=== PATIENT | female | born 1930 | race Caucasian/White ===

== ENCOUNTER 2017-07-13 18:38 | Emergency (ER) | payer MEDICARE, BC ==
[2017-07-13] MEDS ORDERED: Aspirin 81 MG Tab.Chew PO ONE (19:19)
[2017-07-13] MEDS ORDERED: Sodium Chloride 0.9% 10 ML Syringe FLUSH PRN (19:19)
[2017-07-13] MEDS ORDERED: Labetalol 100 MG/20 ML MDV IVPUSH ONE (19:20)
[2017-07-13 19:36] VITALS: BP 192/78
--- NOTE | 2017-07-13 19:36 | EDM.PDOC ---
ED HPI GENERAL MEDICAL PROBLEM - General Chief Complaint: Cardiovascular Problem Stated Complaint: high blood pressure Time Seen by Provider: 07/13/17 19:13 Source of Information: Reports: Patient, Family History Limitations: Reports: No Limitations - History of Present Illness INITIAL COMMENTS - FREE TEXT/NARRATIVE: The patient presents with high blood pressure and left sided chest pain. The patient has a history of high blood pressure and she is on multiple meds for this. She saw her provider on Monday and she was put on cardizem 240mg according to her daughter for her blood pressure. She had some chest pain start this evening about 6:30 and she took her BP and it was high. It was 203 systolic here. She has no shortness of breath, fever, chills, cough, abdominal pain, nausea, vomiting or dysuria. She did have a low grade temp here of 99.6. She has a bad left shoulder and she is not sure if her pain is coming from her shoulder. Onset: Gradual Duration: Hour(s): (1) Location: Reports: Chest Quality: Reports: Sharp Severity: Moderate Improves with: Reports: None Worsens with: Reports: None Context: Reports: Activity (She was walking with her daughter) Associated Symptoms: Reports: Chest Pain. Denies: Cough, Fever/Chills, Headaches, Nausea/Vomiting, Shortness of Breath Chest Pain Score (Numeric/FACES): 9 - Related Data Allergies Allergy/AdvReac Type Severity Reaction Status Date / Time ELBERT Inhibitors Allergy Vomiting Verified 07/13/17 19:04 diphenhydramine Allergy Rash Verified 07/13/17 19:04 [From Benadryl] tape Allergy Rash Uncoded 07/13/17 19:04 Home Meds: Home Meds Acetaminophen 500 mg PO Q4H PRN 07/13/17 [History] Amoxicillin 2,000 mg PO ASDIRECTED 07/13/17 [History] Aspirin [Halfprin] 81 mg PO BEDTIME 07/13/17 [History] Atenolol 25 mg PO DAILY 07/13/17 [History] Benazepril [Lotensin] 20 mg PO BID 07/13/17 [History] Diltiazem [Cardizem CD] 240 mg PO DAILY 07/13/17 [History] Doxazosin [Cardura] 2 mg PO BEDTIME 07/13/17 [History] Gabapentin [Neurontin] 300 mg PO BEDTIME 07/13/17 [History] Levothyroxine [Synthroid] 50 mcg PO ACBREAKFAST 07/13/17 [History] Meclizine [Antivert] 25 mg PO ASDIRECTED PRN 07/13/17 [History] Sennosides/Docusate Sodium [Senna-Docusate Sodium] 2 tab PO BEDTIME 07/13/17 [ History] Past Medical History HEENT History: Reports: Impaired Vision Cardiovascular History: Reports: Hypertension Endocrine/Metabolic History: Reports: Hypothyroidism - Past Surgical History GI Surgical History: Reports: Appendectomy, Cholecystectomy Female Surgical History: Reports: Hysterectomy Musculoskeletal Surgical History: Reports: Knee Replacement, Shoulder Surgery, Other (See Below) Social & Family History - Tobacco Use Smoking Status *Q: Never Smoker - Recreational Drug Use Recreational Drug Use: No ED ROS GENERAL - Review of Systems Review Of Systems: See Below Constitutional: Reports: No Symptoms HEENT: Reports: No Symptoms Respiratory: Reports: No Symptoms Cardiovascular: Reports: Chest Pain Endocrine: Reports: No Symptoms GI/Abdominal: Reports: No Symptoms : Reports: No Symptoms Musculoskeletal: Reports: No Symptoms Skin: Reports: No Symptoms ED EXAM, GENERAL - Physical Exam Exam: See Below Exam Limited By: No Limitations General Appearance: Alert, No Apparent Distress Ears: Normal External Exam Nose: Normal Inspection Head: Atraumatic, Normocephalic Neck: Normal Inspection Respiratory/Chest: No Respiratory Distress, Lungs Clear, Normal Breath Sounds Cardiovascular: Regular Rate, Rhythm, No Edema, No Murmur GI/Abdominal: Soft, Non-Tender, No Organomegaly, No Mass Back Exam: Normal Inspection Extremities: Normal Inspection EKG INTERPRETATION EKG Date: 07/13/17 Time: 19:14 Rhythm: NSR Rate (Beats/Min): 71 [place]: Normal P-Wave: Present QRS: Normal ST-T: Normal QT: Normal Course - Vital Signs Last Recorded V/S: Last Vital Signs Temp 99.5 F 07/13/17 19:05 Pulse 75 07/13/17 19:31 Resp 20 07/13/17 19:05 BP 192/78 H 07/13/17 19:31 Pulse Ox 95 07/13/17 19:05 - Orders/Labs/Meds Orders: Active Orders 24 hr Category Date Time Status Cardiac Monitoring [RC] . DIRECTED Care 07/13/17 19:19 Active EKG Documentation Completion [RC] STAT Care 07/13/17 19:19 Active Oxygen Therapy [RC] PRN Care 07/13/17 19:19 Active Peripheral IV Care [RC] . DIRECTED Care 07/13/17 19:20 Active Chest 1V Frontal [CR] Stat Exams 07/13/17 19:20 Taken UA W/MICROSCOPIC [URIN] Stat Lab 07/13/17 19:19 Uncollected Sodium Chloride 0.9% [Saline Flush] Med 07/13/17 19:19 Active 10 ml FLUSH ASDIRECTED PRN Peripheral IV Insertion Adult [OM.PC] Stat Oth 07/13/17 19:19 Ordered Medication Orders Sodium Chloride (Saline Flush) 10 ml FLUSH ASDIRECTED PRN PRN Reason: Keep Vein Open Last Admin: 07/13/17 19:31 Dose: 10 ml Labs: Laboratory Tests 07/13/17 07/13/17 Range/Units 19:30 19:30 WBC 6.37 (3.98-10.04) K/mm3 RBC 4.11 (3.98-5.22) M/mm3 Hgb 12.4 (11.2-15.7) gm/L Hct 38.3 (34.1-44.9) % MCV 93.2 (79.4-94.8) fl MCH 30.2 (25.6-32.2) pg MCHC 32.4 (32.2-35.5) g/dl RDW Std Deviation 48.6 H (36.4-46.3) fL Plt Count 237 (182-369) K/mm3 MPV 9.5 (9.4-12.3) fl Neut % (Auto) 60.1 (34.0-71.1) % Lymph % (Auto) 25.0 (19.3-51.7) % [place] % (Auto) 8.3 (4.7-12.5) % Eos % (Auto) 5.8 (0.7-5.8) Baso % (Auto) 0.8 (0.1-1.2) % Neut # (Auto) 3.83 (1.56-6.13) K/mm3 Lymph # (Auto) 1.59 (1.18-3.74) K/mm3 [place] # (Auto) 0.53 H (0.24-0.36) K/mm3 Eos # (Auto) 0.37 H (0.04-0.36) K/mm3 Baso # (Auto) 0.05 (0.01-0.08) K/mm3 Sodium 140 (136-145) mEq/L Potassium 4.1 (3.5-5.1) mEq/L Chloride 102 (98-107) mEq/L Carbon Dioxide 28 (21-32) mEq/L Anion Gap 14.1 (5-15) BUN 28 H (7-18) mg/dL Creatinine 1.4 H (0.55-1.02) mg/dL Est Cr Clr Drug Dosing 20.96 mL/min Estimated GFR (MDRD) 35 (>60) mL/min BUN/Creatinine Ratio 20.0 H (14-18) Glucose 177 H (83-115) mg/dL Calcium 9.4 (8.5-10.1) mg/dL Total Bilirubin 0.4 (0.2-1.0) mg/dL AST 25 (15-37) U/L ALT 26 (14-59) U/L Alkaline Phosphatase 101 (46-116) U/L Troponin I 0.020 (0.00-0.056) ng/mL Total Protein 8.2 (6.4-8.2) g/dl Albumin 4.0 (3.4-5.0) g/dl Globulin 4.2 gm/dL Albumin/Globulin Ratio 1.0 (1-2) Meds: Medications Generic Name Dose Route Start Last Admin Trade Name Freq PRN Reason Stop Dose Admin Sodium Chloride 10 ml 07/13/17 19:19 07/13/17 19:31 Saline Flush FLUSH 10 ml ASDIRECTED PRN Administration Keep Vein Open Discontinued Medications Generic Name Dose Route Start Last Admin Trade Name Freq PRN Reason Stop Dose Admin Aspirin 324 mg 07/13/17 19:19 07/13/17 19:32 Aspirin PO 07/13/17 19:20 324 mg ONETIME ONE Administration Labetalol HCl 20 mg 07/13/17 19:20 07/13/17 19:31 Normodyne IVPUSH 07/13/17 19:21 20 mg ONETIME ONE Administration Protocol - Re-Assessments/Exams Free Text/Narrative Re-Assessment/Exam: 07/13/17 19:35 I ordered an IV saline lock, labs, EKG, CXR, aspirin and labetolol 20mg IV. Her EKG shows a NSR with no acute changes. 07/13/17 21:06 Her EKG shows a NSR with no acute changes. Her CXR looks good. Her CBC looks good. Her creatinine was a little elevated at 1.4. Her troponin was negative. 07/13/17 21:08 She feels better. I will discharge her home. Her blood pressure is much better at 160 systolic. Departure - Departure Time of Disposition: 21:10 Disposition: Home, Self-Care 01 Condition: Good Clinical Impression: Atypical chest pain Hypertension Qualifiers: Hypertension type: essential hypertension Qualified Code(s): I10 - Essential ( primary) hypertension Referrals: Jazmine Ledesma MD [Primary Care Provider] - Forms: ED Department Discharge Additional Instructions: Take your medication as prescribed. Please return if you are worse such as worsening chest pain, shortness of breath, elevated blood pressure above 200 for the top number for 3 readings and if you do not feel well. Follow up with Dr Ledesma as scheduled. - My Orders Last 24 Hours: My Active Orders 07/13/17 19:19 Cardiac Monitoring [RC] . DIRECTED EKG Documentation Completion [RC] STAT Oxygen Therapy [RC] PRN UA W/MICROSCOPIC [URIN] Stat Sodium Chloride 0.9% [Saline Flush] 10 ml FLUSH ASDIRECTED PRN Peripheral IV Insertion Adult [OM.PC] Stat 07/13/17 19:20 Peripheral IV Care [RC] . DIRECTED Chest 1V Frontal [CR] Stat - Assessment/Plan Last 24 Hours: My Active Orders 07/13/17 19:19 Cardiac Monitoring [RC] . DIRECTED EKG Documentation Completion [RC] STAT Oxygen Therapy [RC] PRN UA W/MICROSCOPIC [URIN] Stat Sodium Chloride 0.9% [Saline Flush] 10 ml FLUSH ASDIRECTED PRN Peripheral IV Insertion Adult [OM.PC] Stat 07/13/17 19:20 Peripheral IV Care [RC] . DIRECTED Chest 1V Frontal [CR] Stat
--- NOTE | 2017-07-14 08:36 | CR ---
Chest: Portable view of the chest was obtained. Comparison: Prior chest x-ray of 11/15/15. Heart size is within normal limits for portable technique. Tortuous thoracic aorta is seen. Minimal atelectasis is noted within the lateral left costophrenic angle. Lungs otherwise are clear. Right shoulder prosthesis is seen. Penciling is noted of the distal left clavicle likely relating to previous surgery. Degenerative change is noted within the left glenohumeral joint. Scoliosis is present within the spine. Impression: 1. Incidental findings. Nothing acute is seen on portable chest x-ray. Diagnostic code #2
== END 2017-07-13 21:18 | disposition home or self-care (01) ==
LOC: JD.ED 18:38
DX: R07.89 Other chest pain (principal); I10 Essential (primary) hypertension; E03.9 Hypothyroidism, unspecified; Z79.82 Long term (current) use of aspirin; Z79.899 Other long term (current) drug therapy; Z88.8 Allergy status to other drugs, medicaments and biological substances; Z91.048 Other nonmedicinal substance allergy status
CPT/HCPCS: 36415; 71010; 80053; 84484; 85025; 93005; 96374; 99285; A9270; J7050; 93010; 99284

== ENCOUNTER 2017-07-24 00:50 | Emergency (ER) | payer MEDICARE, BC ==
--- NOTE | 2017-07-24 01:23 | EDM.PDOC ---
ED HPI GENERAL MEDICAL PROBLEM - General Chief Complaint: Abdominal Pain Stated Complaint: STOMACH ISSUES Time Seen by Provider: 07/24/17 01:16 - History of Present Illness INITIAL COMMENTS - FREE TEXT/NARRATIVE: 87-year-old female presents emergency room with abdominal pain. This is been going on for slightly over 24 hours progressively getting worse she has some intermittent nausea a little bit of distention and generalized abdominal discomfort. Denies diarrhea or constipation. She is not aware of any recent illnesses or bad exposures. She's not aware of anything that makes the pain better or worse. Middle Abdomen Pain Score (Numeric/FACES): 8 - Related Data Allergies Allergy/AdvReac Type Severity Reaction Status Date / Time ELBERT Inhibitors Allergy Vomiting Verified 07/24/17 01:03 diphenhydramine Allergy Rash Verified 07/24/17 01:03 [From Benadryl] tape Allergy Rash Uncoded 07/24/17 01:03 Home Meds: Home Meds Acetaminophen 500 mg PO Q4H PRN 07/13/17 [History] Aspirin [Halfprin] 81 mg PO BEDTIME 07/13/17 [History] Atenolol 25 mg PO DAILY 07/13/17 [History] Benazepril [Lotensin] 20 mg PO BID 07/13/17 [History] Diltiazem [Cardizem CD] 240 mg PO DAILY 07/13/17 [History] Doxazosin [Cardura] 2 mg PO BEDTIME 07/13/17 [History] Gabapentin [Neurontin] 300 mg PO BEDTIME 07/13/17 [History] Levothyroxine [Synthroid] 50 mcg PO ACBREAKFAST 07/13/17 [History] Meclizine [Antivert] 25 mg PO ASDIRECTED PRN 07/13/17 [History] Sennosides/Docusate Sodium [Senna-Docusate Sodium] 2 tab PO BEDTIME 07/13/17 [ History] Past Medical History HEENT History: Reports: Impaired Vision Cardiovascular History: Reports: Hypertension Endocrine/Metabolic History: Reports: Hypothyroidism 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 - Infectious Disease History Infectious Disease History: Reports: Chicken Pox - Past Surgical History GI Surgical History: Reports: Appendectomy, Cholecystectomy Female Surgical History: Reports: Hysterectomy Musculoskeletal Surgical History: Reports: Knee Replacement, Shoulder Surgery, Other (See Below) Social & Family History - Tobacco Use Smoking Status *Q: Never Smoker - Caffeine Use Caffeine Use: Reports: Coffee - Recreational Drug Use Recreational Drug Use: No ED ROS GENERAL - Review of Systems Review Of Systems: See Below Constitutional: Reports: No Symptoms HEENT: Reports: No Symptoms Respiratory: Reports: No Symptoms Cardiovascular: Reports: No Symptoms. Denies: Chest Pain Endocrine: Reports: No Symptoms GI/Abdominal: Reports: Abdominal Pain, Nausea. Denies: Black Stool, Bloody Stool, Constipation, Diarrhea, Vomiting : Reports: No Symptoms Musculoskeletal: Reports: No Symptoms Skin: Reports: No Symptoms Neurological: Reports: No Symptoms Psychiatric: Reports: No Symptoms Hematologic/Lymphatic: Reports: No Symptoms ED EXAM, GI/ABD - Physical Exam Exam: See Below Exam Limited By: No Limitations General Appearance: Alert, No Apparent Distress Head: Atraumatic, Normocephalic Neck: Normal Inspection, Supple, Non-Tender, Full Range of Motion. No: Lymphadenopathy (L), Lymphadenopathy (R) Respiratory/Chest: No Respiratory Distress, Lungs Clear, Normal Breath Sounds Cardiovascular: Regular Rate, Rhythm, No Edema, No Murmur GI/Abdominal Exam: Normal Bowel Sounds, Soft, Other (Mild distention no localizing discomfort but she has diffuse discomfort) Back Exam: Normal Inspection. No: CVA Tenderness (L), CVA Tenderness (R) Extremities: Normal Inspection, No Pedal Edema Course - Vital Signs Last Recorded V/S: Last Vital Signs Temp 36.4 C 07/24/17 00:57 Pulse 56 L 07/24/17 00:57 Resp 18 07/24/17 00:57 BP 168/61 H 07/24/17 00:57 Pulse Ox 97 07/24/17 00:57 - Orders/Labs/Meds Orders: Active Orders 24 hr Category Date Time Status Abdomen 2V AP Flat Upright [CR] Stat Exams 07/24/17 01:25 Taken Abdomen Pelvis wo Cont [CT] Stat Exams 07/24/17 03:45 Taken Chest 1V Frontal [CR] Stat Exams 07/24/17 01:23 Taken Sodium Chloride 0.9% [Normal Saline] 1,000 ml Med 07/24/17 01:30 Active IV ASDIRECTED NG [Nasogastric Orogastric Tube Insertion] [OM.PC] Oth 07/24/17 06:35 Ordered Routine Medication Orders Sodium Chloride (Normal Saline) 1,000 mls @ 125 mls/hr IV ASDIRECTED THANIA Last Admin: 07/24/17 01:50 Dose: 125 mls/hr Labs: Laboratory Tests 07/24/17 07/24/17 07/24/17 Range/Units 01:35 01:35 03:20 WBC 11.94 H (3.98-10.04) K/mm3 RBC 4.39 (3.98-5.22) M/mm3 Hgb 13.1 (11.2-15.7) gm/L Hct 40.1 (34.1-44.9) % MCV 91.3 (79.4-94.8) fl MCH 29.8 (25.6-32.2) pg MCHC 32.7 (32.2-35.5) g/dl RDW Std Deviation 48.2 H (36.4-46.3) fL Plt Count 264 (182-369) K/mm3 MPV 9.9 (9.4-12.3) fl Neutrophils % (Manual) 81 H (40-60) % Band Neutrophils % 0 (0-10) % Lymphocytes % (Manual) 4 L (20-40) % Atypical Lymphs % 1 % Monocytes % (Manual) 7 (2-10) % Eosinophils % (Manual) 4 (0.7-5.8) % Basophils % (Manual) 3 H (0.1-1.2) Toxic Granulation 1+ slight Platelet Estimate Adequate Plt Morphology Comment Normal Poikilocytosis 1+ slight Anisocytosis 1+ slight Microcytosis 1+ slight Macrocytosis 1+ slight Ovalocytes 1+ slight Stomatocytes 1+ slight RBC Morph Comment Abnormal Sodium 138 (136-145) mEq/L Potassium 4.0 (3.5-5.1) mEq/L Chloride 101 (98-107) mEq/L Carbon Dioxide 29 (21-32) mEq/L Anion Gap 12.0 (5-15) BUN 27 H (7-18) mg/dL Creatinine 1.3 H (0.55-1.02) mg/dL Est Cr Clr Drug Dosing 23.66 mL/min Estimated GFR (MDRD) 39 (>60) mL/min BUN/Creatinine Ratio 20.8 H (14-18) Glucose 173 H (83-115) mg/dL Calcium 9.7 (8.5-10.1) mg/dL Total Bilirubin 0.5 (0.2-1.0) mg/dL AST 25 (15-37) U/L ALT 22 (14-59) U/L Alkaline Phosphatase 85 (46-116) U/L Total Protein 7.5 (6.4-8.2) g/dl Albumin 3.8 (3.4-5.0) g/dl Globulin 3.7 gm/dL Albumin/Globulin Ratio 1.0 (1-2) Lipase 150 (73-393) U/L Urine Color Yellow (Yellow) Urine Appearance Clear (Clear) Urine pH 5.5 (5.0-8.0) Ur Specific [place] 1.020 (1.005-1.030) Urine Protein Negative (Negative) Urine Glucose (UA) Negative (Negative) Urine Ketones Negative (Negative) Urine Occult Blood Negative (Negative) Urine Nitrite Negative (Negative) Urine Bilirubin Negative (Negative) Urine Urobilinogen 0.2 (0.2-1.0) Ur Leukocyte Esterase Negative (Negative) Urine RBC Not seen (0-5) /hpf Urine WBC 0-5 (0-5) /hpf Urine WBC Clumps Few (NOT SEEN) /hpf Ur Epithelial Cells Not seen (0-5) /hpf Amorphous Sediment Moderate H (NOT SEEN) /hpf Urine Bacteria Not seen (FEW) /hpf Hyaline Casts 0-5 (0-5) /lpf Urine Mucus Moderate H (FEW) /hpf Meds: Medications Generic Name Dose Route Start Last Admin Trade Name Freq PRN Reason Stop Dose Admin Sodium Chloride 1,000 mls @ 125 mls/hr 07/24/17 01:30 07/24/17 01:50 Normal Saline IV 125 mls/hr ASDIRECTED THANIA Administration Discontinued Medications Generic Name Dose Route Start Last Admin Trade Name Freq PRN Reason Stop Dose Admin Ondansetron HCl 4 mg 07/24/17 01:26 07/24/17 01:50 Zofran Odt PO 07/24/17 01:27 4 mg ONETIME ONE Administration Ondansetron HCl 4 mg 07/24/17 04:15 07/24/17 04:18 Zofran IVPUSH 07/24/17 04:16 4 mg ONETIME ONE Administration - Re-Assessments/Exams Free Text/Narrative Re-Assessment/Exam: 07/24/17 05:32 X-ray examination of her abdomen shows multiple air-fluid levels in the small bowel however the small bowel is nondistended this is pretty nonspecific. Laboratory evaluation nonsuggestive. We elected to pursue a abdominal pelvic CT however her creatinine clearance is not great may pursue with oral contrast only. 07/24/17 06:[address] showed a mid small bowel obstruction transition point in the right lower quadrant. Complicating this picture is a large ventral hernia superior to the umbilicus small portion of the stomach is in this this is not obstructed this is palpable nonreducible. Also is some diverticulosis no obvious diverticulitis but because of some overlying edema in the mesentery diverticulitis isn't entirely excluded. NG tube placed complicated by a couple of emesis episodes fairly large amount. Otherwise NG tube functioning properly patient otherwise tolerated this without difficulty. Case was discussed with Dr. Salcido our hospitalist who thought it would be best if the patient went to [place]. Patient's case discussed with [facility] in [place] Dr. Coy conklin. Departure - Departure Time of Disposition: 07:00 Disposition: DC/Tfer to [facility] 02 Clinical Impression: Small bowel obstruction - Discharge Information Referrals: Jazmine Ledesma MD [Primary Care Provider] - Forms: ED Department Discharge - My Orders Last 24 Hours: My Active Orders 07/24/17 01:23 Chest 1V Frontal [CR] Stat 07/24/17 01:25 Abdomen 2V AP Flat Upright [CR] Stat 07/24/17 01:30 Sodium Chloride 0.9% [Normal Saline] 1,000 ml IV ASDIRECTED 07/24/17 03:45 Abdomen Pelvis wo Cont [CT] Stat 07/24/17 06:35 NG [Nasogastric Orogastric Tube Insertion] [OM.PC] Routine - Assessment/Plan Last 24 Hours: My Active Orders 07/24/17 01:23 Chest 1V Frontal [CR] Stat 07/24/17 01:25 Abdomen 2V AP Flat Upright [CR] Stat 07/24/17 01:30 Sodium Chloride 0.9% [Normal Saline] 1,000 ml IV ASDIRECTED 07/24/17 03:45 Abdomen Pelvis wo Cont [CT] Stat 07/24/17 06:35 NG [Nasogastric Orogastric Tube Insertion] [OM.PC] Routine
[2017-07-24] MEDS ORDERED: Ondansetron 4 MG Tab.DIS PO ONE (01:26)
[2017-07-24] MEDS ORDERED: Sodium Chloride 0.9% 1,000 ML IV SCH (01:30)
[2017-07-24] MEDS ORDERED: Ondansetron 4 MG/2 ML SDV IVPUSH ONE (04:15)
[2017-07-24] MEDS ORDERED: Lactated Ringers 1,000 ML ONE (07:30)
[2017-07-24 07:46] VITALS: BP 160/65
--- NOTE | 2017-07-24 07:52 | CR ---
Abdomen: Supine and upright views of the abdomen were obtained. Comparison: No previous abdominal x-ray. Air-filled small bowel is noted within the abdomen with air-fluid levels. Findings are suspicious for mid to distal small bowel obstruction. No free air is identified. Anastomotic sutures are seen within the pelvis. Bony structures are grossly intact. Previous cholecystectomy is noted. Impression: 1. Air-filled loops of small bowel containing air-fluid levels suspicious for mid to distal small bowel obstruction. 2. Other incidental findings as noted above. Diagnostic code #3
--- NOTE | 2017-07-24 07:52 | CR ---
Chest: Frontal view of the chest was obtained. Comparison: Prior chest x-ray of 07/13/17. Heart size is slightly enlarged. Tortuous thoracic aorta is seen. Right shoulder prosthesis is noted. Minimal scarring is noted within the lateral left costophrenic angle. Lungs otherwise are clear. Impression: 1. Incidental findings. Nothing acute is appreciated. Diagnostic code #2
--- NOTE | 2017-07-24 08:04 | CT ---
CT abdomen and pelvis Technique: Multiple axial sections were obtained from above the dome of the diaphragm inferiorly through the pubic symphysis. Intravenous contrast not utilized. Oral contrast has been given. Comparison: Prior abdominal x-ray performed earlier on the same day (1:30 AM). Findings: Small portion of the visualized lung bases shows nothing acute. Small to moderate sized hiatal hernia is noted. Contrast is noted within the distal esophagus compatible with reflux. Noncontrast appearance of the liver and spleen appears within normal limits. Adrenal glands show no nodule. Pancreas is within normal limits. Surgical clips are seen from prior cholecystectomy. Kidneys show no hydronephrosis. Small nonobstructing stone is noted within the left kidney. Larger parenchymal calcification is seen within the left kidney measuring 8 mm. Anterior abdominal wall hernia is seen containing portions of the stomach antrum. This occurs above the umbilicus. No obstruction is seen. Dilated loops of small bowel are identified within the abdomen and pelvis. Distal small bowel loops appear to be decompressed. Fat-containing hernia is identified to the left side at the level of the umbilicus. Haziness is seen around portions of the bowel within the mesentery suggesting vascular congestion. Surgical anastomotic sutures are identified within the pelvis. Minimal colonic diverticuli are seen and felt to be incidental. Bone window settings were reviewed which show scattered degenerative change within the spine most severe at L4-L5 with spondylolisthesis, disc space narrowing and vacuum phenomena. Impression: 1. Findings compatible with mid to distal small bowel obstruction. Haziness is seen within the mesentery around the small bowel dilatation compatible with mesenteric congestion. Etiology for this obstruction is not seen and findings most likely represent adhesions. 2. Anterior abdominal wall hernia containing a portion of the stomach antrum which does not appear obstructing. Small fat-containing left-sided abdominal wall hernia is also noted. 3. Incidental hiatal hernia is noted with gastroesophageal reflux. Several left-sided renal calculi are seen. 4. Other incidental findings. Diagnostic code #3 Agree with preliminary report issued by [employer] ([facility] preliminary report dictated on 07/24/17 at 6:40 AM Central Time)
== END 2017-07-24 07:36 ==
LOC: JD.ED 00:50
DX: K56.609 Unspecified intestinal obstruction, unspecified as to partial versus complete obstruction (principal); I10 Essential (primary) hypertension; E03.9 Hypothyroidism, unspecified; Z79.899 Other long term (current) drug therapy; Z79.82 Long term (current) use of aspirin; Z88.8 Allergy status to other drugs, medicaments and biological substances; Z91.048 Other nonmedicinal substance allergy status
CPT/HCPCS: 36415; 43752; 71010; 74020; 74176; 80053; 81001; 83690; 85025; 96361; 96374; 99285; A9270; J2405; J7040; P9612

== ENCOUNTER 2018-05-07 01:45 | Emergency (ER) | payer MEDICARE, BC ==
[2018-05-07 01:59] VITALS: BP 147/56
[2018-05-07] MEDS ORDERED: Ibuprofen 400 MG Tab PO ONE (02:15)
--- NOTE | 2018-05-07 02:22 | EDM.PDOC ---
ED HPI GENERAL MEDICAL PROBLEM - General Chief Complaint: Back Pain or Injury Stated Complaint: lower back pain Time Seen by Provider: 05/07/18 01:57 Source of Information: Reports: Patient, Family (Granddaughter), RN Notes Reviewed History Limitations: Reports: Altered Mental Status (Poor historian - possible dementia) - History of Present Illness INITIAL COMMENTS - FREE TEXT/NARRATIVE: The patient states that she has had low back pain for months, that radiates down her posterior right thigh, about intermediate down and she states that the pain comes and goes, although is usually there, but she denies any modifiers. She states that she had difficulty sleeping tonight because of the discomfort, which brought her to the ED. No recent fall or injuries. She did not take any pain medications prior to coming to the ED. She states that she has not had a prior medical evaluation for this, but I note that she is on Neurontin, and denies having any other neuropathies, and cannot explain why she would otherwise be on that medicine. The patient's PCP is Dr. Jazmine Ledesma. right lower back/buttock/leg Pain Score (Numeric/FACES): 8 - Related Data Allergies Allergy/AdvReac Type Severity Reaction Status Date / Time ELBERT Inhibitors Allergy Vomiting Verified 05/07/18 01:59 diphenhydramine Allergy Rash Verified 05/07/18 01:59 [From Benadryl] tape Allergy Rash Uncoded 05/07/18 01:59 Home Meds: Home Meds Acetaminophen 500 mg PO Q4H PRN 07/13/17 [History] Aspirin [Halfprin] 81 mg PO BEDTIME 07/13/17 [History] Atenolol 25 mg PO DAILY 07/13/17 [History] Benazepril [Lotensin] 20 mg PO BID 07/13/17 [History] Diltiazem [Cardizem CD] 240 mg PO DAILY 07/13/17 [History] Doxazosin [Cardura] 2 mg PO BEDTIME 07/13/17 [History] Gabapentin [Neurontin] 300 mg PO BEDTIME 07/13/17 [History] Levothyroxine [Synthroid] 50 mcg PO ACBREAKFAST 07/13/17 [History] Meclizine [Antivert] 25 mg PO ASDIRECTED PRN 07/13/17 [History] Sennosides/Docusate Sodium [Senna-Docusate Sodium] 2 tab PO BEDTIME 07/13/17 [ History] Past Medical History HEENT History: Reports: Impaired Vision Cardiovascular History: Reports: Hypertension Musculoskeletal History: Reports: Back Pain, Chronic, Osteoarthritis Endocrine/Metabolic History: Reports: Hypothyroidism - Infectious Disease History Infectious Disease History: Reports: Chicken Pox - Past Surgical History GI Surgical History: Reports: Appendectomy, Cholecystectomy Female Surgical History: Reports: Hysterectomy, Salpingo-Oophorectomy Musculoskeletal Surgical History: Reports: Knee Replacement (right), Shoulder Surgery (left) Social & Family History - Family History Family Medical History: Noncontributory - Tobacco Use Smoking Status *Q: Never Smoker Second Hand Smoke Exposure: No - Caffeine Use Caffeine Use: Reports: Coffee - Alcohol Use Alcohol Use History: No - Recreational Drug Use Recreational Drug Use: No - Living Situation & Occupation Living situation: Reports: , Alone Occupation: Retired ED ROS GENERAL - Review of Systems Review Of Systems: ROS reveals no pertinent complaints other than HPI. ED EXAM, GENERAL - Physical Exam Exam: See Below Exam Limited By: No Limitations General Appearance: Alert, WD/WN, No Apparent Distress Back Exam: Normal Inspection, Full Range of Motion, Other (No visible abnormality to the patient's back, such as swelling, erythema, ecchymosis, or abrasion. No vertebral spinous process tenderness, and no paravertebral muscle tenderness. Straight leg raise is negative to nearly 90 bilaterally.) Extremities: Normal Inspection, Normal Range of Motion, Non-Tender (but the patient indicates that her pain is in her right buttock, not her back), No Pedal Edema, Normal Capillary Refill Course - Vital Signs Last Recorded V/S: Last Vital Signs Temp 36.6 C 05/07/18 01:50 Pulse 69 05/07/18 01:50 Resp 18 05/07/18 01:50 BP 147/56 H 05/07/18 01:50 Pulse Ox 97 05/07/18 01:50 - Orders/Labs/Meds Orders: Active Orders 24 hr Category Date Time Status Ibuprofen [Motrin] Med 05/07/18 02:15 Once 400 mg PO ONETIME ONE - Re-Assessments/Exams Free Text/Narrative Re-Assessment/Exam: 05/07/18 02:16 On examination, the patient does not really have low back pain, rather, it is right buttock pain. I suspect that the patient may have some muscular inflammation, possibly leading to mild right-sided sciatica. This would explain why the patient's straight leg raise is negative to nearly 90 bilaterally. I am recommending that she take [id number] ibuprofen, 400 mg every 8 hours, then follow-up with her PCP, Dr. Jazmine Ledesma, for further evaluation. Departure - Departure Time of Disposition: 02:18 Disposition: Home, Self-Care 01 Condition: Good Clinical Impression: Pain in right buttock - Discharge Information *PRESCRIPTION DRUG MONITORING PROGRAM REVIEWED*: Not Applicable *COPY OF PRESCRIPTION DRUG MONITORING REPORT IN PATIENT VICTOR HUGO: Not Applicable Referrals: Jazmine Ledesma MD [Primary Care Provider] - Additional Instructions: You were seen in the emergency room for right buttock pain, radiating about intermediate down your right thigh. Based on your history and physical examination, your right buttock pain is most likely due to a muscle spasm or local inflammation. We recommend that you take [id number] ibuprofen, 2 tablets (400 mg) every 8 hours, with food, as needed for discomfort. Please follow-up with your PCP, Dr. Jazmine Ledesma, this week, for further evaluation. If any other problems, please do not hesitate to return to the ER. - My Orders Last 24 Hours: My Active Orders 05/07/18 02:15 Ibuprofen [Motrin] 400 mg PO ONETIME ONE - Assessment/Plan Last 24 Hours: My Active Orders 05/07/18 02:15 Ibuprofen [Motrin] 400 mg PO ONETIME ONE
== END 2018-05-07 02:25 | disposition home or self-care (01) ==
LOC: JD.ED 01:45
DX: M79.1 Myalgia (principal); I10 Essential (primary) hypertension; E03.9 Hypothyroidism, unspecified; Z79.82 Long term (current) use of aspirin; Z79.899 Other long term (current) drug therapy; Z91.09 Other allergy status, other than to drugs and biological substances
CPT/HCPCS: 99283; A9270

== ENCOUNTER 2018-11-16 02:20 | Inpatient (IN) | payer MEDICARE, BC ==
[2018-11-16] MEDS ORDERED: Ondansetron 4 MG/2 ML SDV IVPUSH ONE ×2 (02:39→06:13)
[2018-11-16] MEDS ORDERED: Sodium Chloride 0.9% 10 ML Syringe FLUSH PRN (02:39)
[2018-11-16] MEDS ORDERED: HYDROmorphone 1 MG/ML Syringe IVPUSH ONE (02:40)
[2018-11-16] MEDS: Sodium Chloride 0.9% 1,000 ML IV SCH ×2 (03:02→10:11)
--- NOTE | 2018-11-16 03:07 | EDM.PDOC ---
ED HPI GENERAL MEDICAL PROBLEM - General Chief Complaint: Gastrointestinal Problem Stated Complaint: POSSIBLE HERNIA ISSUES Time Seen by Provider: 11/16/18 02:27 Source of Information: Reports: Patient History Limitations: Reports: No Limitations - History of Present Illness INITIAL COMMENTS - FREE TEXT/NARRATIVE: The patient presents with right sided abdominal pain. She has a known incisional hernia to the right abdomen. She has had this for years. She had some trouble with it back in March and was admitted but no surgery was done. It was not incarcerated at that time. This morning she woke up sweaty and with 7/10 pain to the hernia. She says she thinks this has moved. She has nausea but no vomiting. She has chills but no fever. She has no diarrhea or dysuria. She has no cough, chest pain or shortness of breath. Onset: Sudden Duration: Hour(s): Location: Reports: Abdomen Quality: Reports: Sharp Severity: Moderate Improves with: Reports: None Worsens with: Reports: None Associated Symptoms: Reports: Fever/Chills, Nausea/Vomiting. Denies: Chest Pain , Cough, Headaches, Shortness of Breath Abdominal Pain Score (Numeric/FACES): 7 - Related Data Allergies Allergy/AdvReac Type Severity Reaction Status Date / Time diphenhydramine Allergy Rash Verified 06/09/18 20:15 [From Benadryl] ELBERT Inhibitors AdvReac Vomiting Verified 06/11/18 07:03 tape Allergy Rash Uncoded 05/07/18 01:59 Home Meds: Home Meds Acetaminophen 500 mg PO Q4H PRN 07/13/17 [History] Aspirin [Halfprin] 81 mg PO DAILY 07/13/17 [History] Atenolol 25 mg PO DAILY 07/13/17 [History] Gabapentin [Neurontin] 300 mg PO BEDTIME 07/13/17 [History] Levothyroxine [Synthroid] 50 mcg PO ACBREAKFAST 07/13/17 [History] Sennosides/Docusate Sodium [Senna-Docusate Sodium] 2 tab PO BEDTIME PRN [History] Benazepril [Lotensin] 20 mg PO BID 06/09/18 [History] Doxazosin [Cardura] 1 mg PO BID 06/09/18 [History] Pantoprazole Sodium [Protonix] 20 mg PO DAILY 06/09/18 [History] Past Medical History HEENT History: Reports: Impaired Vision Other HEENT History: Glasses. 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 - Infectious Disease History Infectious Disease History: Reports: Chicken Pox - Past Surgical History GI Surgical History: Reports: Appendectomy, Cholecystectomy Female Surgical History: Reports: Hysterectomy, Salpingo-Oophorectomy Musculoskeletal Surgical History: Reports: Knee Replacement, Shoulder Surgery Social & Family History - Family History Family Medical History: Noncontributory - Tobacco Use Smoking Status *Q: Never Smoker - Caffeine Use Caffeine Use: Reports: Coffee Other Caffeine Use: 1cup/day - Recreational Drug Use Recreational Drug Use: No - Living Situation & Occupation Living situation: Reports: , Alone Occupation: Retired ED ROS GENERAL - Review of Systems Review Of Systems: See Below Constitutional: Reports: No Symptoms HEENT: Reports: No Symptoms Respiratory: Reports: No Symptoms Cardiovascular: Reports: No Symptoms Endocrine: Reports: No Symptoms GI/Abdominal: Reports: Abdominal Pain, Nausea. Denies: Diarrhea, Vomiting : Reports: No Symptoms Musculoskeletal: Reports: No Symptoms Skin: Reports: No Symptoms Neurological: Reports: No Symptoms ED EXAM, GI/ABD - Physical Exam Exam: See Below Exam Limited By: No Limitations General Appearance: Alert, No Apparent Distress Ears: Normal External Exam Nose: Normal Inspection Head: Atraumatic, Normocephalic Neck: Normal Inspection Respiratory/Chest: No Respiratory Distress, Lungs Clear, Normal Breath Sounds Cardiovascular: Regular Rate, Rhythm, No Edema, No Murmur GI/Abdominal Exam: Soft, No Organomegaly, No Mass, Tender (Mild to moderate tenderness over a right incisional hernia in her abdomen. I still do hear bowel sounds and they are not hyperactive.) Course - Vital Signs Last Recorded V/S: Last Vital Signs Temp 97 F 11/16/18 02:26 Pulse 62 11/16/18 02:26 Resp 16 11/16/18 02:26 BP 142/62 H 11/16/18 02:26 Pulse Ox 95 11/16/18 04:17 - Orders/Labs/Meds Orders: Active Orders 24 hr Category Date Time Status Peripheral IV Care [RC] . DIRECTED Care 11/16/18 02:39 Active Abdomen Pelvis wo Cont [CT] Stat Exams 11/16/18 04:46 Taken UA W/MICROSCOPIC [URIN] Stat Lab 11/16/18 02:39 Ordered Sodium Chloride 0.9% [Normal Saline] 1,000 ml Med 11/16/18 02:45 Active IV ASDIRECTED Sodium Chloride 0.9% [Saline Flush] Med 11/16/18 02:39 Active 10 ml FLUSH ASDIRECTED PRN ED Antiemetic Medication Reflex [OM.PC] Stat Oth 11/16/18 02:39 Ordered NG [Nasogastric Orogastric Tube Insertion] [OM.PC] Oth 11/16/18 06:21 Ordered Routine Peripheral IV Insertion Adult [OM.PC] Stat Oth 11/16/18 02:39 Ordered Medication Orders Sodium Chloride (Normal Saline) 1,000 mls @ 125 mls/hr IV ASDIRECTED THANIA Last Admin: 11/16/18 03:02 Dose: 125 mls/hr Sodium Chloride (Saline Flush) 10 ml FLUSH ASDIRECTED PRN PRN Reason: Keep Vein Open Last Admin: 11/16/18 03:02 Dose: 10 ml Labs: Laboratory Tests 11/16/18 11/16/18 Range/Units 03:05 03:05 WBC 9.68 (3.98-10.04) K/mm3 RBC 4.11 (3.98-5.22) M/mm3 Hgb 12.5 (11.2-15.7) gm/L Hct 38.0 (34.1-44.9) % MCV 92.5 (79.4-94.8) fl MCH 30.4 (25.6-32.2) pg MCHC 32.9 (32.2-35.5) g/dl RDW Std Deviation 46.9 H (36.4-46.3) fL Plt Count 266 (182-369) K/mm3 MPV 9.5 (9.4-12.3) fl Neut % (Auto) 77.5 H (34.0-71.1) % Lymph % (Auto) 13.4 L (19.3-51.7) % Alfalfa % (Auto) 4.6 L (4.7-12.5) % Eos % (Auto) 3.8 (0.7-5.8) Baso % (Auto) 0.4 (0.1-1.2) % Neut # (Auto) 7.49 H (1.56-6.13) K/mm3 Lymph # (Auto) 1.30 (1.18-3.74) K/mm3 Alfalfa # (Auto) 0.45 H (0.24-0.36) K/mm3 Eos # (Auto) 0.37 H (0.04-0.36) K/mm3 Baso # (Auto) 0.04 (0.01-0.08) K/mm3 Sodium 139 (136-145) mEq/L Potassium 4.0 (3.5-5.1) mEq/L Chloride 101 (98-107) mEq/L Carbon Dioxide 27 (21-32) mEq/L Anion Gap 15.0 (5-15) BUN 39 H (7-18) mg/dL Creatinine 1.8 H (0.55-1.02) mg/dL Est Cr Clr Drug Dosing 16.76 mL/min Estimated GFR (MDRD) 26 (>60) mL/min BUN/Creatinine Ratio 21.7 H (14-18) Glucose 195 H (83-115) mg/dL Calcium 9.4 (8.5-10.1) mg/dL Total Bilirubin 0.6 (0.2-1.0) mg/dL AST 19 (15-37) U/L ALT 22 (14-59) U/L Alkaline Phosphatase 74 (46-116) U/L Total Protein 7.2 (6.4-8.2) g/dl Albumin 3.7 (3.4-5.0) g/dl Globulin 3.5 gm/dL Albumin/Globulin Ratio 1.1 (1-2) Lipase 195 (73-393) U/L Meds: Medications Generic Name Dose Route Start Last Admin Trade Name Freq PRN Reason Stop Dose Admin Sodium Chloride 1,000 mls @ 125 mls/hr 11/16/18 02:45 11/16/18 03:02 Normal Saline IV 125 mls/hr ASDIRECTED THANIA Administration Sodium Chloride 10 ml 11/16/18 02:39 11/16/18 03:02 Saline Flush FLUSH 10 ml ASDIRECTED PRN Administration Keep Vein Open Discontinued Medications Generic Name Dose Route Start Last Admin Trade Name Maureen PRN Reason Stop Dose Admin Hydromorphone HCl 0.5 mg 11/16/18 02:40 11/16/18 03:01 Dilaudid IVPUSH 11/16/18 02:41 0.5 mg ONETIME ONE Administration Sodium Chloride 500 mls @ 1,000 mls/hr 11/16/18 04:02 11/16/18 04:06 Normal Saline IV 11/16/18 04:31 1,000 mls/hr .BOLUS ONE Administration Ondansetron HCl 4 mg 11/16/18 02:39 11/16/18 03:01 Zofran IVPUSH 11/16/18 02:40 4 mg ONETIME ONE Administration Ondansetron HCl 4 mg 11/16/18 06:13 11/16/18 06:20 Zofran IVPUSH 11/16/18 06:14 4 mg ONETIME ONE Administration - Re-Assessments/Exams Free Text/Narrative Re-Assessment/Exam: 11/16/18 03:06 I ordered an IV NS at 125mL/hr, zofran 4mg IV, dilaudid 0.5mg IV, labs, UA and a CT of her abdomen and pelvis. I did try to reduce the hernia but I could not. 11/16/18 06:28 Her CBC is normal. Her BUN is elevated at 39 with an elevated creatinine of 1.8. Her GFR is low at 26. I ordered a 500mL bolus and then a rate of 125. Her glucose was elevated at 195. Her lipase was normal. Her CT shows a small bowel obstruction possibly due to adhesions. Epigastric ventral hernia containing stomach without obstruction. Left spigelian hernia containing fat but no bowel. The patient vomited again so I ordered zofran 4mg IV. I also ordered an NG tube. I called Dr Morrison and he agreed to the admission with Dr Carlson on consult. I will call her. Departure - Departure Time of Disposition: 06:35 Disposition: Admitted As Inpatient 65 Condition: Serious Clinical Impression: Small bowel obstruction due to adhesions, Renal insufficiency Ventral hernia Qualifiers: Obstruction and gangrene presence: without obstruction or gangrene Qualified Code(s): K43.9 - Ventral hernia without obstruction or gangrene - Discharge Information Referrals: Jazmine Ledesma MD [Primary Care Provider] - Forms: ED Department Discharge - My Orders Last 24 Hours: My Active Orders 11/16/18 02:39 Peripheral IV Care [RC] . DIRECTED UA W/MICROSCOPIC [URIN] Stat Sodium Chloride 0.9% [Saline Flush] 10 ml FLUSH ASDIRECTED PRN ED Antiemetic Medication Reflex [OM.PC] Stat Peripheral IV Insertion Adult [OM.PC] Stat 11/16/18 02:45 Sodium Chloride 0.9% [Normal Saline] 1,000 ml IV ASDIRECTED 11/16/18 04:46 Abdomen Pelvis wo Cont [CT] Stat 11/16/18 06:21 NG [Nasogastric Orogastric Tube Insertion] [OM.PC] Routine - Assessment/Plan Last 24 Hours: My Active Orders 11/16/18 02:39 Peripheral IV Care [RC] . DIRECTED UA W/MICROSCOPIC [URIN] Stat Sodium Chloride 0.9% [Saline Flush] 10 ml FLUSH ASDIRECTED PRN ED Antiemetic Medication Reflex [OM.PC] Stat Peripheral IV Insertion Adult [OM.PC] Stat 11/16/18 02:45 Sodium Chloride 0.9% [Normal Saline] 1,000 ml IV ASDIRECTED 11/16/18 04:46 Abdomen Pelvis wo Cont [CT] Stat 11/16/18 06:21 NG [Nasogastric Orogastric Tube Insertion] [OM.PC] Routine
[2018-11-16] MEDS ORDERED: Sodium Chloride 0.9% 500 ML IV ONE (04:02)
--- NOTE | 2018-11-16 07:25 | CT ---
CT abdomen and pelvis Technique: Multiple axial sections were obtained from above the dome of the diaphragm inferiorly to the pubic symphysis. Intravenous contrast was not utilized. Oral contrast has been given. Comparison: Prior CT abdomen and pelvis exam of 06/09/18. Findings: Anterior abdominal wall hernia is seen which contains nondilated stomach antrum. This appears to cause no herniation with contrast seen within more distal bowel. Additional abdominal wall hernia seen to the left of midline more inferiorly within the abdomen which previously contained a loop of small bowel which has reduced on the current CT exam. Third hernia is seen of the spigelian type on the left side. Mildly dilated small bowel loops are seen. Findings are suspicious for distal small bowel obstruction. Small nonobstructing calculus noted within the inferior left kidney as well as larger calcifications seen within the upper left kidney. Larger calcification measures about 7 mm. Right kidney shows no abnormal calcifications. Visualized lung bases show nothing acute. Noncontrast appearance of the liver and spleen are unremarkable. Moderate-sized hiatal hernia is noted with gastroesophageal reflux of contrast. Adrenal glands show no nodule. No discrete pancreatic abnormality is seen. Surgical clips in prior cholecystectomy. Aorta and iliac vessels shows atherosclerotic calcification without aneurysm. No retroperitoneal adenopathy or mesenteric abnormalities are seen. No discrete pelvic abnormality is appreciated. Bone window settings were reviewed which show diffuse degenerative change throughout the spine as well as sacroiliac joints. Impression: 1. Dilated small bowel loops compatible with distal small bowel obstruction, etiology not identified and findings most likely due to adhesion. 2. Anterior abdominal wall hernia containing nondilated stomach antrum, second hernia more inferiorly to the left of midline which previously contained a loop of small bowel which contains fat on current study. 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 3. Hiatal hernia with gastroesophageal reflux of contrast. 4. Incidental left-sided nonobstructing renal calculi. Diagnostic code #3 I agree with preliminary report from [facility], finalized on 11/16/18, 6:57 AM Central Time
--- NOTE | 2018-11-16 07:48 | PCM.HP ---
H&P History of Present Illness - General Date of Service: 11/16/18 Admit Problem/Dx: Admission Diagnosis/Problem Admission Diagnosis/Problem Small bowel obstruction Source of Information: Patient, Old Records, Provider, RN, RN Notes Reviewed History Limitations: Reports: No Limitations - History of Present Illness Initial Comments - Free Text/Narative: Elizabet Chavarria is an 88 yo female who presents to our ED on 11/16/18 in the very driller brake lining hours with a abdominal pain in the right side along with nausea and vomiting. She has known incisional hernia in the right abdomen has had it for years. She is admitted for abdominal pain here on 06/09/18 through and the pain was thought to be secondary to her hernia. She has reportedly refused surgery in the past. Dr. Ruiz, general surgeon, did see her then and did not have a surgical interventions to offer her. It was not incarcerated. Prior to arrival to the ED today she woke up with 7 out of 10 pain at her hernia site and thinks the pain has moved his had nausea but no chills or fever. No diarrhea or dysuria, cough, chest pain, or shortness of breath. In the ED temperature was 97 Fahrenheit. Pulse 62. Respirations 16. Blood pressure 142/62. Pulse ox 95%. Labs are obtained: WBC is 9.68. Hemoglobin 12.8. Hematocrit 38.0. She is normocytic. Pulses are good 266,000. Neutrophils are elevated at 77.5%. Sodium was 139. Potassium 4.0. Chloride 101. Carbon monoxide 27. Anion gap 15. BUN is 39. Creatinine high at 1.8. GFR is 26. Glucose is 195. Calcium 9.4. AST is 19, ALT 22, alkaline phosphatase 74. Protein 7.2. Albumin 3.7. Lipase is 195. Given 0.5 a lot of for pain and 500 mL fluid bolus. She is also given 4 mg Zofran and started on fluids. Dr. Uriarte and his attempt to reduce her hernia was unable to. CT scan with oral contrast was obtained and interpreted by Dr. Richey as "1. Dilated small bowel loops compatible with distal small bowel obstruction, etiology not identified findings most likely due to adhesion. 2. Anterior abdominal wall hernia containing nondilated stomach atrium, second hernia more inferiorly to the left of midline which previously containing a loop of small bowel which contains fat on current study. 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 3. Hiatal hernia with gastroesophageal reflux of contrast. 4. Incidental left-sided nonobstructing renal calculi." NG tube was then placed in the ED. She carries a history of impaired vision, hard of hearing, hypertension, chronic constipation, hiatal hernia, chronic back pain, osteoarthritis, hypothyroidism, urticaria. She was never a smoker. Code status is DNR/DNI. Her PCP is Dr. Ledesma. Abdominal Pain Score (Numeric/FACES): 7 - Related Data Allergies/Adverse Reactions: Allergies Allergy/AdvReac Type Severity Reaction Status Date / Time diphenhydramine Allergy Rash Verified 06/09/18 20:15 [From Benadryl] ELBERT Inhibitors AdvReac Vomiting Verified 06/11/18 07:03 tape Allergy Rash Uncoded 05/07/18 01:59 Home Medications: Home Meds Acetaminophen 500 mg PO Q4H PRN 07/13/17 [History] Aspirin [Halfprin] 81 mg PO DAILY 07/13/17 [History] Atenolol 25 mg PO DAILY 07/13/17 [History] Gabapentin [Neurontin] 300 mg PO BEDTIME 07/13/17 [History] Levothyroxine [Synthroid] 50 mcg PO ACBREAKFAST 07/13/17 [History] Sennosides/Docusate Sodium [Senna-Docusate Sodium] 2 tab PO BEDTIME PRN [History] Benazepril [Lotensin] 20 mg PO BID 06/09/18 [History] Doxazosin [Cardura] 1 mg PO BID 06/09/18 [History] Pantoprazole Sodium [Protonix] 20 mg PO DAILY 06/09/18 [History] Past Medical History HEENT History: Reports: Impaired Vision Other HEENT History: Glasses. 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 - Infectious Disease History Infectious Disease History: Reports: Chicken Pox - Past Surgical History GI Surgical History: Reports: Appendectomy, Cholecystectomy Female Surgical History: Reports: Hysterectomy, Salpingo-Oophorectomy Musculoskeletal Surgical History: Reports: Knee Replacement, Shoulder Surgery Social & Family History - Family History Family Medical History: Noncontributory - Tobacco Use Smoking Status *Q: Never Smoker - Caffeine Use Caffeine Use: Reports: Coffee Other Caffeine Use: 1cup/day - Recreational Drug Use Recreational Drug Use: No - Living Situation & Occupation Living situation: Reports: , Alone Occupation: Retired H&P Review of Systems - Review of Systems: Review Of Systems: See Below General: Reports: No Symptoms. Denies: Fever, Chills, Malaise, Weakness, Fatigue HEENT: Reports: No Symptoms. Denies: Headaches, Sore Throat Pulmonary: Reports: No Symptoms. Denies: Shortness of Breath, Wheezing, Pleuritic Chest Pain, Cough, Sputum Cardiovascular: Reports: Edema (chronic ). Denies: Chest Pain, Palpitations, Dyspnea on Exertion Gastrointestinal: Reports: Abdominal Pain, Constipation (chronic ), Nausea. Denies: Diarrhea, Difficulty Swallowing, Vomiting Genitourinary: Reports: No Symptoms. Denies: Pain Musculoskeletal: Reports: No Symptoms Skin: Reports: No Symptoms. Denies: Cyanosis Psychiatric: Reports: No Symptoms. Denies: Confusion Neurological: Reports: No Symptoms Hematologic/Lymphatic: Reports: No Symptoms Immunologic: Reports: No Symptoms Exam - Exam Exam: See Below - Vital Signs Vital Signs: Last Vital Signs Temp 97 F 11/16/18 02:26 Pulse 62 11/16/18 02:26 Resp 16 11/16/18 02:26 BP 142/62 H 11/16/18 02:26 Pulse Ox 95 11/16/18 04:17 Weight: 160 lb - Exam Quality Assessment: DVT Prophylaxis General: Alert, Oriented, Cooperative. No: Mild Distress HEENT: Conjunctiva Clear, EACs Clear, EOMI, Hearing Intact, Mucosa Moist & Muse , Nares Patent, Normal Nasal Septum, Posterior Pharynx Clear, Other (NT tube in place ), PERRLA Neck: Supple, Trachea Midline Lungs: Clear to Auscultation, Normal Respiratory Effort Cardiovascular: Regular Rate, Regular Rhythm GI/Abdominal Exam: Normal Bowel Sounds, Soft, No Distention, Tender (near right incisional hernia ) (Female) Exam: Deferred Rectal (Female) Exam: Deferred Back Exam: Normal Inspection, Full Range of Motion Extremities: Normal Inspection, Normal Range of Motion, Non-Tender, Normal Capillary Refill, Pedal Edema (1+) Peripheral Pulses: 1+: Dorsalis Pedis (L), Dorsalis Pedis (R), 2+: Radial (L), Radial (R) Skin: Warm, Dry, Intact Neurological: Cranial Nerves Intact (Grossly ) Neuro Extensive - Mental Status: Alert, Oriented x3, Normal Mood/Affect - Patient Data Lab Results Last 24 hrs: Laboratory Results - last 24 hr 11/16/18 11/16/18 Range/Units 03:05 03:05 WBC 9.68 (3.98-10.04) K/mm3 RBC 4.11 (3.98-5.22) M/mm3 Hgb 12.5 (11.2-15.7) gm/L Hct 38.0 (34.1-44.9) % MCV 92.5 (79.4-94.8) fl MCH 30.4 (25.6-32.2) pg MCHC 32.9 (32.2-35.5) g/dl RDW Std Deviation 46.9 H (36.4-46.3) fL Plt Count 266 (182-369) K/mm3 MPV 9.5 (9.4-12.3) fl Neut % (Auto) 77.5 H (34.0-71.1) % Lymph % (Auto) 13.4 L (19.3-51.7) % [place] % (Auto) 4.6 L (4.7-12.5) % Eos % (Auto) 3.8 (0.7-5.8) Baso % (Auto) 0.4 (0.1-1.2) % Neut # (Auto) 7.49 H (1.56-6.13) K/mm3 Lymph # (Auto) 1.30 (1.18-3.74) K/mm3 [place] # (Auto) 0.45 H (0.24-0.36) K/mm3 Eos # (Auto) 0.37 H (0.04-0.36) K/mm3 Baso # (Auto) 0.04 (0.01-0.08) K/mm3 Sodium 139 (136-145) mEq/L Potassium 4.0 (3.5-5.1) mEq/L Chloride 101 (98-107) mEq/L Carbon Dioxide 27 (21-32) mEq/L Anion Gap 15.0 (5-15) BUN 39 H (7-18) mg/dL Creatinine 1.8 H (0.55-1.02) mg/dL Est Cr Clr Drug Dosing 16.76 mL/min Estimated GFR (MDRD) 26 (>60) mL/min BUN/Creatinine Ratio 21.7 H (14-18) Glucose 195 H (83-115) mg/dL Calcium 9.4 (8.5-10.1) mg/dL Total Bilirubin 0.6 (0.2-1.0) mg/dL AST 19 (15-37) U/L ALT 22 (14-59) U/L Alkaline Phosphatase 74 (46-116) U/L Total Protein 7.2 (6.4-8.2) g/dl Albumin 3.7 (3.4-5.0) g/dl Globulin 3.5 gm/dL Albumin/Globulin Ratio 1.1 (1-2) Lipase 195 (73-393) U/L Result Diagrams: 11/16/18 03:05 11/16/18 03:05 - Problem List (1) Renal insufficiency SNOMED Code(s): 313336989, 941154532 ICD Code: N28.9 - DISORDER OF KIDNEY AND URETER, UNSPECIFIED Status: Acute Priority: High Current Visit: Yes (2) Ventral hernia SNOMED Code(s): 102959275 ICD Code: K43.9 - VENTRAL HERNIA WITHOUT OBSTRUCTION OR GANGRENE Status: Chronic Priority: High Current Visit: Yes Qualifiers: Obstruction and gangrene presence: without obstruction or gangrene Qualified Code(s): K43.9 - Ventral hernia without obstruction or gangrene (3) Small bowel obstruction SNOMED Code(s): 732407075 ICD Code: K56.609 - UNSP INTESTNL OBST, UNSP TO PARTIAL VERSUS COMPLETE OBST Status: Acute Priority: High Current Visit: Yes (4) Nausea SNOMED Code(s): 561460204 ICD Code: R11.0 - NAUSEA Status: Acute Priority: High Current Visit: Yes Problem List Initiated/Reviewed/Updated: Yes Orders Last 24hrs: Active Orders 24 hr Category Date Time Status Patient Status [ADT] Routine ADT 11/16/18 06:45 Active Notify Provider Consults [RC] ASDIRECTED Care 11/16/18 06:33 Active Peripheral IV Care [RC] . DIRECTED Care 11/16/18 02:39 Active Consult to Physician [CONS] Urgent Cons 11/16/18 06:32 Active UA W/MICROSCOPIC [URIN] Stat Lab 11/16/18 02:39 Ordered Sodium Chloride 0.9% [Normal Saline] 1,000 ml Med 11/16/18 02:45 Active IV ASDIRECTED Sodium Chloride 0.9% [Saline Flush] Med 11/16/18 02:39 Active 10 ml FLUSH ASDIRECTED PRN ED Antiemetic Medication Reflex [OM.PC] Stat Oth 11/16/18 02:39 Ordered NG [Nasogastric Orogastric Tube Insertion] [OM.PC] Oth 11/16/18 06:21 Ordered Routine Peripheral IV Insertion Adult [OM.PC] Stat Oth 11/16/18 02:39 Ordered Medication Orders Sodium Chloride (Normal Saline) 1,000 mls @ 125 mls/hr IV ASDIRECTED THANIA Last Admin: 11/16/18 03:02 Dose: 125 mls/hr Sodium Chloride (Saline Flush) 10 ml FLUSH ASDIRECTED PRN PRN Reason: Keep Vein Open Last Admin: 11/16/18 03:02 Dose: 10 ml Assessment/Plan Comment:: I/P: Acute: Small bowel obstruction: -Reports right-sided abdominal pain near incisional hernia on right abdomen -Hospitalized for abdominal pain in past from 06/09/18-06/11/18 -Surgical consult but no surgical intervention warranted -Longstanding hx/o multiple hernias -Nausea and vomiting but no fever, chills, diarrhea, chest pain. -WBC 9.68 -CRP <0.2 -TSH pending -ED provider attempted to reduce hernia but was unable -CT scan in ED on 11/16/18: * 1. Dilated small bowel loops compatible with distal small bowel obstruction , etiology not identified findings most likely due to adhesion. * 2. Anterior abdominal wall hernia containing nondilated stomach antrum, second hernia more inferiorly to the left of midline which previously contained a loop of small bowel which contains fat on current study. 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 * 3. Hiatal hernia with gastroesophageal reflux of contrast. * 4. Incidental left-sided nonobstructing renal calculi. -NG tube placed in ED -NPO -Pain medications as ordered -Reglan Q6Hr scheduled -Dr. Carlson, general surgeon, consulted in ED -Suggests continuing NG tube and IV hydration -Reports non-surgical at this time -Reports prior hernia is not cause of obstruction currently, likely cause in pelvis -Reports nursing should frequently check NG tube as it is prone to obstruction due to size used -IV fluids as ordered -Anti-emetics as ordered -Ambulate Acute renal injury -BUN 39 -Creatinine 1.8 -eGFR 26 -Baseline creatinine appears to be 1.1-1.4 with eGFR of mid 30-40's -IV fluids as ordered -Likely 2/2 to poor oral intake from above -Avoid nephrotoxic agents if able Chronic: Impaired vision Hard of hearing HTN Chronic constipaiton Hiatal hernia Chronic back pain Osteoarthritis Hypothyroidism Urticaria Plan: Admit to medical floor on telemetry Other orders as indicated above Home medications as ordered Routine AM labs PT/OT CM/SW for discharge planning DVT prophylaxis: SCDs (elevated creatinine) GI prophylaxis: PPI Code status: DNR/DNI; PCP: Dr. Ledesma
--- NOTE | 2018-11-16 07:59 | PCM.CONS ---
H&P History of Present Illness - General Date of Service: 11/16/18 Admit Problem/Dx: Admission Diagnosis/Problem Admission Diagnosis/Problem Small bowel obstruction Source of Information: Patient, Family, Provider History Limitations: Reports: No Limitations - History of Present Illness Initial Comments - Free Text/Narative: The patient is an 88 y/o lady who presented to the ED with one day of abdominal pain. She reports last BM was one day ago. The pain was accompanied by nausea. She denies any fever. She denies any vomiting. She denies passing any flatus recently. She has a very pronounced epigastric hernia. She is very concerned about the hernia. It has been present for several years. CBC and CMP done in the ED reveal normal WBC, with elevation in Cr. She had a CT scan with PO contrast, that family reports she vomited while trying to drink. The CT reveals an epigastric hernia that contains the stomach but is not obstructed. She also has a smaller fat-containing ventral hernia. The transition point was not identified. Abdominal Pain Score (Numeric/FACES): 7 - Related Data Allergies/Adverse Reactions: Allergies Allergy/AdvReac Type Severity Reaction Status Date / Time diphenhydramine Allergy Rash Verified 06/09/18 20:15 [From Benadryl] ELBERT Inhibitors AdvReac Vomiting Verified 06/11/18 07:03 tape Allergy Rash Uncoded 05/07/18 01:59 Home Medications: Home Meds Acetaminophen 500 mg PO Q4H PRN 07/13/17 [History] Aspirin [Halfprin] 81 mg PO DAILY 07/13/17 [History] Atenolol 25 mg PO DAILY 07/13/17 [History] Gabapentin [Neurontin] 300 mg PO BEDTIME 07/13/17 [History] Levothyroxine [Synthroid] 50 mcg PO ACBREAKFAST 07/13/17 [History] Sennosides/Docusate Sodium [Senna-Docusate Sodium] 2 tab PO BEDTIME PRN [History] Benazepril [Lotensin] 20 mg PO BID 06/09/18 [History] Doxazosin [Cardura] 1 mg PO BID 06/09/18 [History] Pantoprazole Sodium [Protonix] 20 mg PO DAILY 06/09/18 [History] Past Medical History HEENT History: Reports: Hard of Hearing, Impaired Vision Other HEENT History: Glasses. 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 - Infectious Disease History Infectious Disease History: Reports: Chicken Pox - Past Surgical History GI Surgical History: Reports: Appendectomy, Cholecystectomy Female Surgical History: Reports: Hysterectomy, Salpingo-Oophorectomy Musculoskeletal Surgical History: Reports: Knee Replacement, Shoulder Surgery Social & Family History - Family History Cardiac: Denies: Heart Failure, [place] : Denies: Renal Disease/Insufficiency Endocrine/Metabolic: Reports: Diabetes, type II - Tobacco Use Smoking Status *Q: Never Smoker - Caffeine Use Caffeine Use: Reports: Coffee Other Caffeine Use: 1cup/day - Recreational Drug Use Recreational Drug Use: No - Living Situation & Occupation Living situation: Reports: , Alone Occupation: Retired H&P Review of Systems - Review of Systems: Review Of Systems: See Below General: Reports: No Symptoms HEENT: Reports: No Symptoms Pulmonary: Reports: No Symptoms Cardiovascular: Reports: No Symptoms Gastrointestinal: Reports: Abdominal Pain, Nausea. Denies: Diarrhea, Flatus Genitourinary: Reports: No Symptoms Musculoskeletal: Reports: No Symptoms Skin: Reports: No Symptoms Psychiatric: Reports: No Symptoms Neurological: Reports: No Symptoms Exam - Exam Exam: See Below - Vital Signs Vital Signs: Last Vital Signs Temp 36.1 C 11/16/18 02:26 Pulse 62 11/16/18 02:26 Resp 16 11/16/18 02:26 BP 142/62 H 11/16/18 02:26 Pulse Ox 95 11/16/18 04:17 Weight: 72.575 kg - Exam Quality Assessment: No: Supplemental Oxygen General: Alert, Cooperative HEENT: Conjunctiva Clear, EACs Clear, Other (NGT in right nare with dark brown aspirate) Neck: Supple Lungs: Normal Respiratory Effort GI/Abdominal Exam: Soft, Non-Tender, No Distention, Hernia (in epigastrium, easily reducible ) Extremities: No Pedal Edema Peripheral Pulses: 2+: Dorsalis Pedis (L), Dorsalis Pedis (R) Skin: Warm, Dry, Intact Neurological: Cranial Nerves Intact Neuro Extensive - Mental Status: Normal Mood/Affect - Patient Data Lab Results Last 24 hrs: Laboratory Results - last 24 hr 11/16/18 11/16/18 Range/Units 03:05 03:05 WBC 9.68 (3.98-10.04) K/mm3 RBC 4.11 (3.98-5.22) M/mm3 Hgb 12.5 (11.2-15.7) gm/L Hct 38.0 (34.1-44.9) % MCV 92.5 (79.4-94.8) fl MCH 30.4 (25.6-32.2) pg MCHC 32.9 (32.2-35.5) g/dl RDW Std Deviation 46.9 H (36.4-46.3) fL Plt Count 266 (182-369) K/mm3 MPV 9.5 (9.4-12.3) fl Neut % (Auto) 77.5 H (34.0-71.1) % Lymph % (Auto) 13.4 L (19.3-51.7) % [place] % (Auto) 4.6 L (4.7-12.5) % Eos % (Auto) 3.8 (0.7-5.8) Baso % (Auto) 0.4 (0.1-1.2) % Neut # (Auto) 7.49 H (1.56-6.13) K/mm3 Lymph # (Auto) 1.30 (1.18-3.74) K/mm3 [place] # (Auto) 0.45 H (0.24-0.36) K/mm3 Eos # (Auto) 0.37 H (0.04-0.36) K/mm3 Baso # (Auto) 0.04 (0.01-0.08) K/mm3 Sodium 139 (136-145) mEq/L Potassium 4.0 (3.5-5.1) mEq/L Chloride 101 (98-107) mEq/L Carbon Dioxide 27 (21-32) mEq/L Anion Gap 15.0 (5-15) BUN 39 H (7-18) mg/dL Creatinine 1.8 H (0.55-1.02) mg/dL Est Cr Clr Drug Dosing 16.76 mL/min Estimated GFR (MDRD) 26 (>60) mL/min BUN/Creatinine Ratio 21.7 H (14-18) Glucose 195 H (83-115) mg/dL Calcium 9.4 (8.5-10.1) mg/dL Total Bilirubin 0.6 (0.2-1.0) mg/dL AST 19 (15-37) U/L ALT 22 (14-59) U/L Alkaline Phosphatase 74 (46-116) U/L Total Protein 7.2 (6.4-8.2) g/dl Albumin 3.7 (3.4-5.0) g/dl Globulin 3.5 gm/dL Albumin/Globulin Ratio 1.1 (1-2) Lipase 195 (73-393) U/L Result Diagrams: 11/16/18 03:05 11/16/18 03:05 Consult PN Assessment/Plan Procedures: Procedures ASSAY OF ALDOSTERONE (07/13/18) ASSAY OF LIPASE (06/09/18) ASSAY OF MAGNESIUM (06/09/18) ASSAY OF METANEPHRINES (07/13/18) ASSAY OF PARATHORMONE (07/13/18) ASSAY OF PROTEIN URINE (07/13/18) ASSAY OF RENIN (07/13/18) ASSAY OF TROPONIN QUANT (06/09/18) ASSAY OF URINE CREATININE (07/13/18) C DIFF AMPLIFIED PROBE (06/09/18) CHEST X-RAY 1 VIEW FRONTAL (07/24/17) COMPLETE CBC W/AUTO DIFF WBC (07/13/18) COMPREHEN METABOLIC PANEL (06/09/18) CT ABD & PELV W/CONTRAST (06/09/18) CT ABD & PELVIS W/O CONTRAST (07/24/17) ELECTROCARDIOGRAM TRACING (06/09/18) EMERGENCY DEPT VISIT (06/09/18) EMERGENCY DEPT VISIT (05/07/18) EMERGENCY DEPT VISIT (07/24/17) EMERGENCY DEPT VISIT (11/15/15) HYDRATE IV INFUSION ADD-ON (06/09/18) LIPID PANEL (06/09/18) MEASURE BLOOD OXYGEN LEVEL (10/23/18) METABOLIC PANEL TOTAL CA (06/09/18) NASAL/OROGASTRIC W/TUBE PLMT (07/24/17) PT EVAL LOW COMPLEX 20 MIN (06/09/18) ROUTINE VENIPUNCTURE (06/09/18) THER/PROPH/DIAG INJ IV PUSH (06/09/18) THER/PROPH/DIAG IV INF INIT (06/09/18) TX/PRO/DX INJ NEW DRUG ADDON (06/09/18) TX/PRO/DX INJ SAME DRUG MASTER DATA ANALYST (06/09/18) URINALYSIS AUTO W/SCOPE (07/13/18) URINE CULTURE/COLONY COUNT (06/09/18) VITAMIN D 25 HYDROXY (07/13/18) X-RAY EXAM OF ABDOMEN (07/24/17) (1) Small bowel obstruction SNOMED Code(s): 468182022 Code(s): K56.609 - UNSP INTESTNL OBST, UNSP TO PARTIAL VERSUS COMPLETE OBST Priority: High Current Visit: Yes Problem List Initiated/Reviewed/Updated: Yes Plan: 88 y/o lady with small bowel obstruction, presumed from adhesions - Nonoperative management recommended at this point since pt has no focal tenderness and normal WBC - NGT decompression to low intermittent suction. Pt has small caliber NGT that will require frequent flushes to prevent clogging - IVF rehydration. If pt has large volumes from the NGT, would recommend bolusing NS or LR equal to 1/2 volume of NGT aspirate daily in addition to maintenance fluids - Pain management per primary. Minimize narcotics - ambulate ad shellie, recommend up 3x daily to walk - remaining medical management per primary Will follow Karly Schofield MD General surgery
[2018-11-16] MEDS ORDERED: HYDROmorphone 0.5 MG/0.5 ML Syringe IVPUSH PRN (08:39)
[2018-11-16] MEDS ORDERED: Ondansetron 4 MG/2 ML SDV IV PRN (08:39)
[2018-11-16] MEDS ORDERED: hydrALAZINE 20 MG/ML SDV IVPUSH PRN (08:41)
[2018-11-16] MEDS ORDERED: Metoprolol Tartrate 5 MG/5 ML SDV IVPUSH PRN (08:41)
[2018-11-16] MEDS: Pantoprazole 40 MG Vial IVPUSH SCH (10:10)
[2018-11-16] MEDS: Metoclopramide 10 MG/2 ML SDV IVPUSH SCH ×3 (12:18→23:18)
[2018-11-16] MEDS: Atenolol 25 MG Tab PO SCH ×2 (12:18→14:22)
[2018-11-16] MEDS ORDERED: Scopolamine 1.5 MG Transdermal Patch TRDERM PRN (14:21)
[2018-11-16] MEDS ORDERED: HYDROmorphone 0.5 MG/0.5 ML Syringe IVPUSH ONE (14:27)
--- NOTE | 2018-11-16 17:32 | CR ---
Chest: Portable view of the chest was obtained. Comparison: Prior chest x-ray of 07/24/17. Heart size felt to be slightly enlarged. Upper mediastinum is normal. Aorta remains slightly tortuous. Lungs are clear and no acute parenchymal change. Degenerative change seen within the left shoulder. Right shoulder prosthesis is seen. Tip of nasogastric tube is difficult to see but lies at least within the stomach. Impression: 1. Findings as noted above. Nothing acute is seen. Diagnostic code #2
[2018-11-16] MEDS ORDERED: PRAMOXINE HCL TOP PRN (18:07)
[2018-11-16] MEDS ORDERED: 50% Dextrose in Water 50 ML Syringe IVPUSH PRN (18:28)
--- NOTE | 2018-11-16 18:46 | PCM.SN ---
- Free Text/Narrative Note: Patient seen and examined w/ daughter at bedside. Educated them about her diagnosis, clinical progress, and treatment plan. Encouraged to ambulated as many times as she can.
[2018-11-16] MEDS: D5%-0.9% NaCl w/ KCl 40 meq 1,000 ML IV SCH (19:07)
[2018-11-16] MEDS ORDERED: Gabapentin 300 MG Cap PO SCH (21:00)
[2018-11-16] MEDS ORDERED: Fluticasone Propionate Nasal Spray 16 GM Bottle NASBOTH SCH (21:00)
[2018-11-16] MEDS ORDERED: Insulin Lispro 100 Units/ML 3 ML Vial SUBCUT SCH (22:00)
[2018-11-16] MEDS: Doxazosin 2 MG Tab PO SCH (22:02)
[2018-11-16] MEDS: Betamethasone Dipropionate/Clotrimazole 0.05-1% Crm 15 GM Tube TOP SCH (22:06)
[2018-11-16] MEDS: Insulin Lispro 100 Units/ML 3 ML Vial SUBCUT SCH (23:26)
[2018-11-17] MEDS: D5%-0.9% NaCl w/ KCl 40 meq 1,000 ML IV SCH (03:48)
[2018-11-17] MEDS: Insulin Lispro 100 Units/ML 3 ML Vial SUBCUT SCH (05:31)
[2018-11-17] MEDS: Levothyroxine 50 MCG Tab PO SCH (05:32)
[2018-11-17] MEDS: Metoclopramide 10 MG/2 ML SDV IVPUSH SCH ×5 (05:34→22:44)
--- NOTE | 2018-11-17 08:06 | PCM.PN ---
- General Info Date of Service: 11/17/18 Admission Dx/Problem (Free Text): Admission Diagnosis/Problem Admission Diagnosis/Problem Small bowel obstruction Subjective Update: Follow Up Functional Status: Reports: Pain Controlled, Ambulating, Urinating. Denies: New Symptoms - Review of Systems General: Denies: Fever, Weakness, Fatigue, Malaise HEENT: Reports: No Symptoms Pulmonary: Denies: Shortness of Breath, Pleuritic Chest Pain, Cough Cardiovascular: Denies: Chest Pain, Dyspnea on Exertion, Lightheadedness Gastrointestinal: Reports: Diarrhea, Flatus, Other (bowel movement). Denies: Abdominal Pain, Constipation, Decreased Appetite, Hematochezia, Melena, Nausea Genitourinary: Denies: Dysuria Musculoskeletal: Reports: No Symptoms Skin: Denies: Cyanosis, Mottled, Pallor, Diaphoresis, Bruising Neurological: Denies: Confusion, Weakness, Gait Disturbance Psychiatric: Denies: Depression, Anxiety, Agitation, Hallucinations Systems Review Comment:: No overnight or acute issues. She rested well. Her electrolytes are unremarkable. She had at least 1100ml through her NGT output. She has no complaints this AM. - Patient Data Vitals - Most Recent: Last Vital Signs Temp 37.1 C 11/17/18 05:26 Pulse 83 11/17/18 05:26 Resp 17 11/17/18 05:26 BP 150/79 H 11/17/18 05:36 Pulse Ox 94 L 11/17/18 05:26 Weight - Most Recent: 76.34 kg I&O - Last 24 Hours: Intake & Output 11/16/18 11/17/18 11/17/18 22:59 06:59 14:59 Intake Total 731 1270 Output Total 200 1500 Balance 531 -230 Lab Results Last 24 Hours: Laboratory Results - last 24 hr 11/16/18 11/16/18 11/16/18 Range/Units 03:05 03:08 10:28 WBC (3.98-10.04) K/mm3 RBC (3.98-5.22) M/mm3 Hgb (11.2-15.7) gm/L Hct (34.1-44.9) % MCV (79.4-94.8) fl MCH (25.6-32.2) pg MCHC (32.2-35.5) g/dl RDW Std Deviation (36.4-46.3) fL Plt Count (182-369) K/mm3 MPV (9.4-12.3) fl Neut % (Auto) (34.0-71.1) % Lymph % (Auto) (19.3-51.7) % [place] % (Auto) (4.7-12.5) % Eos % (Auto) (0.7-5.8) Baso % (Auto) (0.1-1.2) % Neut # (Auto) (1.56-6.13) K/mm3 Lymph # (Auto) (1.18-3.74) K/mm3 [place] # (Auto) (0.24-0.36) K/mm3 Eos # (Auto) (0.04-0.36) K/mm3 Baso # (Auto) (0.01-0.08) K/mm3 Sodium (136-145) mEq/L Potassium (3.5-5.1) mEq/L Chloride (98-107) mEq/L Carbon Dioxide (21-32) mEq/L Anion Gap (5-15) BUN (7-18) mg/dL Creatinine (0.55-1.02) mg/dL Est Cr Clr Drug Dosing mL/min Estimated GFR (MDRD) (>60) mL/min BUN/Creatinine Ratio (14-18) Glucose (83-115) mg/dL POC Glucose 187 H (83-110) mg/dL Calcium (8.5-10.1) mg/dL Magnesium (1.8-2.4) mg/dl C-Reactive Protein < 0.2 (<1.0) mg/dL Free T4 1.38 (0.76-1.46) ng/dL TSH 3rd Generation (0.358-3.74) uIU/mL Urine Color (Yellow) Urine Appearance (Clear) Urine pH (5.0-8.0) Ur Specific [place] (1.005-1.030) Urine Protein (Negative) Urine Glucose (UA) (Negative) Urine Ketones (Negative) Urine Occult Blood (Negative) Urine Nitrite (Negative) Urine Bilirubin (Negative) Urine Urobilinogen (0.2-1.0) Ur Leukocyte Esterase (Negative) Urine RBC (0-5) /hpf Urine WBC (0-5) /hpf Ur Epithelial Cells (0-5) /hpf Urine Bacteria (FEW) /hpf Urine Mucus (FEW) /hpf 11/16/18 11/16/18 11/16/18 Range/Units 10:55 12:06 15:20 WBC (3.98-10.04) K/mm3 RBC (3.98-5.22) M/mm3 Hgb (11.2-15.7) gm/L Hct (34.1-44.9) % MCV (79.4-94.8) fl MCH (25.6-32.2) pg MCHC (32.2-35.5) g/dl RDW Std Deviation (36.4-46.3) fL Plt Count (182-369) K/mm3 MPV (9.4-12.3) fl Neut % (Auto) (34.0-71.1) % Lymph % (Auto) (19.3-51.7) % [place] % (Auto) (4.7-12.5) % Eos % (Auto) (0.7-5.8) Baso % (Auto) (0.1-1.2) % Neut # (Auto) (1.56-6.13) K/mm3 Lymph # (Auto) (1.18-3.74) K/mm3 [place] # (Auto) (0.24-0.36) K/mm3 Eos # (Auto) (0.04-0.36) K/mm3 Baso # (Auto) (0.01-0.08) K/mm3 Sodium (136-145) mEq/L Potassium (3.5-5.1) mEq/L Chloride (98-107) mEq/L Carbon Dioxide (21-32) mEq/L Anion Gap (5-15) BUN (7-18) mg/dL Creatinine (0.55-1.02) mg/dL Est Cr Clr Drug Dosing mL/min Estimated GFR (MDRD) (>60) mL/min BUN/Creatinine Ratio (14-18) Glucose (83-115) mg/dL POC Glucose 169 H 159 H (83-110) mg/dL Calcium (8.5-10.1) mg/dL Magnesium (1.8-2.4) mg/dl C-Reactive Protein (<1.0) mg/dL Free T4 (0.76-1.46) ng/dL TSH 3rd Generation 5.371 H (0.358-3.74) uIU/mL Urine Color (Yellow) Urine Appearance (Clear) Urine pH (5.0-8.0) Ur Specific [place] (1.005-1.030) Urine Protein (Negative) Urine Glucose (UA) (Negative) Urine Ketones (Negative) Urine Occult Blood (Negative) Urine Nitrite (Negative) Urine Bilirubin (Negative) Urine Urobilinogen (0.2-1.0) Ur Leukocyte Esterase (Negative) Urine RBC (0-5) /hpf Urine WBC (0-5) /hpf Ur Epithelial Cells (0-5) /hpf Urine Bacteria (FEW) /hpf Urine Mucus (FEW) /hpf 11/16/18 11/16/18 11/17/18 Range/Units 18:34 23:05 05:50 WBC 8.60 (3.98-10.04) K/mm3 RBC 3.67 L (3.98-5.22) M/mm3 Hgb 11.1 L (11.2-15.7) gm/L Hct 34.2 (34.1-44.9) % MCV 93.2 (79.4-94.8) fl MCH 30.2 (25.6-32.2) pg MCHC 32.5 (32.2-35.5) g/dl RDW Std Deviation 48.0 H (36.4-46.3) fL Plt Count 230 (182-369) K/mm3 MPV 10.0 (9.4-12.3) fl Neut % (Auto) 76.9 H (34.0-71.1) % Lymph % (Auto) 13.6 L (19.3-51.7) % [place] % (Auto) 8.7 (4.7-12.5) % Eos % (Auto) 0.5 L (0.7-5.8) Baso % (Auto) 0.2 (0.1-1.2) % Neut # (Auto) 6.61 H (1.56-6.13) K/mm3 Lymph # (Auto) 1.17 L (1.18-3.74) K/mm3 [place] # (Auto) 0.75 H (0.24-0.36) K/mm3 Eos # (Auto) 0.04 (0.04-0.36) K/mm3 Baso # (Auto) 0.02 (0.01-0.08) K/mm3 Sodium (136-145) mEq/L Potassium (3.5-5.1) mEq/L Chloride (98-107) mEq/L Carbon Dioxide (21-32) mEq/L Anion Gap (5-15) BUN (7-18) mg/dL Creatinine (0.55-1.02) mg/dL Est Cr Clr Drug Dosing mL/min Estimated GFR (MDRD) (>60) mL/min BUN/Creatinine Ratio (14-18) Glucose (83-115) mg/dL POC Glucose 207 H (83-110) mg/dL Calcium (8.5-10.1) mg/dL Magnesium (1.8-2.4) mg/dl C-Reactive Protein (<1.0) mg/dL Free T4 (0.76-1.46) ng/dL TSH 3rd Generation (0.358-3.74) uIU/mL Urine Color Yellow (Yellow) Urine Appearance Turbid H (Clear) Urine pH 6.0 (5.0-8.0) Ur Specific [place] > or = 1.030 (1.005-1.030) Urine Protein 1+ H (Negative) Urine Glucose (UA) Negative (Negative) Urine Ketones Negative (Negative) Urine Occult Blood 2+ H (Negative) Urine Nitrite Negative (Negative) Urine Bilirubin Negative (Negative) Urine Urobilinogen 0.2 (0.2-1.0) Ur Leukocyte Esterase 1+ H (Negative) Urine RBC 5-10 H (0-5) /hpf Urine WBC 30-40 H (0-5) /hpf Ur Epithelial Cells 0-5 (0-5) /hpf Urine Bacteria Many H (FEW) /hpf Urine Mucus Moderate H (FEW) /hpf 11/17/18 Range/Units 05:50 WBC (3.98-10.04) K/mm3 RBC (3.98-5.22) M/mm3 Hgb (11.2-15.7) gm/L Hct (34.1-44.9) % MCV (79.4-94.8) fl MCH (25.6-32.2) pg MCHC (32.2-35.5) g/dl RDW Std Deviation (36.4-46.3) fL Plt Count (182-369) K/mm3 MPV (9.4-12.3) fl Neut % (Auto) (34.0-71.1) % Lymph % (Auto) (19.3-51.7) % [place] % (Auto) (4.7-12.5) % Eos % (Auto) (0.7-5.8) Baso % (Auto) (0.1-1.2) % Neut # (Auto) (1.56-6.13) K/mm3 Lymph # (Auto) (1.18-3.74) K/mm3 [place] # (Auto) (0.24-0.36) K/mm3 Eos # (Auto) (0.04-0.36) K/mm3 Baso # (Auto) (0.01-0.08) K/mm3 Sodium 141 (136-145) mEq/L Potassium 4.1 (3.5-5.1) mEq/L Chloride 105 (98-107) mEq/L Carbon Dioxide 26 (21-32) mEq/L Anion Gap 14.1 (5-15) BUN 34 H (7-18) mg/dL Creatinine 1.3 H (0.55-1.02) mg/dL Est Cr Clr Drug Dosing 23.20 mL/min Estimated GFR (MDRD) 39 (>60) mL/min BUN/Creatinine Ratio 26.2 H (14-18) Glucose 191 H (83-115) mg/dL POC Glucose (83-110) mg/dL Calcium 8.9 (8.5-10.1) mg/dL Magnesium 1.9 (1.8-2.4) mg/dl C-Reactive Protein 1.9 H* (<1.0) mg/dL Free T4 (0.76-1.46) ng/dL TSH 3rd Generation (0.358-3.74) uIU/mL Urine Color (Yellow) Urine Appearance (Clear) Urine pH (5.0-8.0) Ur Specific [place] (1.005-1.030) Urine Protein (Negative) Urine Glucose (UA) (Negative) Urine Ketones (Negative) Urine Occult Blood (Negative) Urine Nitrite (Negative) Urine Bilirubin (Negative) Urine Urobilinogen (0.2-1.0) Ur Leukocyte Esterase (Negative) Urine RBC (0-5) /hpf Urine WBC (0-5) /hpf Ur Epithelial Cells (0-5) /hpf Urine Bacteria (FEW) /hpf Urine Mucus (FEW) /hpf Med Orders - Current: Current Medications Aspirin (Halfprin) 81 mg PO DAILY [facility] Atenolol (Tenormin) 25 mg PO DAILY [facility] Last Admin: 11/16/18 14:22 Dose: Not Given Betamethasone/Clotrimazole (Lotrisone) 0 gm TOP BID [facility] Last Admin: 11/16/18 22:06 Dose: 1 applic Dextrose/Water (Dextrose 50% In Water) 50 ml IVPUSH ASDIRECTED PRN PRN Reason: Hypoglycemia Doxazosin Mesylate (Cardura) 1 mg PO BID [facility] Last Admin: 11/16/18 22:02 Dose: 1 mg Flunisolide (Nasalide Nasal [place]) 0 ml NASBOTH BID [facility] Last Admin: 11/16/18 22:04 Dose: 1 sprays Gabapentin (Neurontin) 300 mg PO BEDTIME [facility] Last Admin: 11/16/18 22:02 Dose: 300 mg Hydralazine HCl (Apresoline) 10 mg IVPUSH Q6H PRN PRN Reason: Hypertension Hydromorphone HCl (Dilaudid) 0.5 mg IVPUSH Q2H PRN PRN Reason: Pain (severe 7-10) Potassium Chloride/Dextrose/Sod Cl (D5 Ns With 40 Meq Kcl) 1,000 mls @ 125 mls/ hr IV ASDIRECTED [facility] Last Admin: 11/17/18 03:48 Dose: 125 mls/hr Insulin Human Lispro (Humalog) 0 unit SUBCUT Q6H [facility]; Protocol Last Admin: 11/17/18 05:31 Dose: 2 unit Levothyroxine Sodium (Synthroid) 50 mcg PO ACBREAKFAST [facility] Last Admin: 11/17/18 05:32 Dose: 50 mcg Magnesium Sulfate (Pharmacy To Dose - Magnesium Replacement) 1 dose .XX ASDIRECTED [facility] Metoclopramide HCl (Reglan) 10 mg IVPUSH Q6H [facility] Last Admin: 11/17/18 05:34 Dose: 10 mg Metoprolol Tartrate (Lopressor) 5 mg IVPUSH Q4H PRN PRN Reason: Tachycardia Miscellaneous Information (Remove Patch) 0 ea TRDERM Q72H [facility] Non-Formulary Medication (Mometasone Furoate [Elocon]) 1 applic TOP DAILY [facility] Non-Formulary Medication (Pramoxine Hcl [Sarna Sensitive]) 1 applic TOP Q2H PRN PRN Reason: Rash Ondansetron HCl (Zofran) 4 mg IV Q6H PRN PRN Reason: Nausea/Vomiting Pantoprazole Sodium (Protonix Iv) 40 mg IVPUSH DAILY [facility] Last Admin: 11/16/18 10:10 Dose: 40 mg Potassium Chloride (Pharmacy To Dose - Potassium Replacement) 1 dose .XX ASDIRECTED [facility] Scopolamine (Transderm-Scop) 1.5 mg TRDERM Q72H PRN PRN Reason: Nausea/Vomiting Last Admin: 11/16/18 14:52 Dose: 1.5 mg Sodium Chloride (Saline Flush) 10 ml FLUSH ASDIRECTED PRN PRN Reason: Keep Vein Open Last Admin: 11/16/18 03:02 Dose: 10 ml Discontinued Medications Fluticasone Propionate (Flonase) 0 gm NASBOTH BID [facility] Hydromorphone HCl (Dilaudid) 0.5 mg IVPUSH ONETIME ONE Stop: 11/16/18 02:41 Last Admin: 11/16/18 03:01 Dose: 0.5 mg Hydromorphone HCl (Dilaudid) 0.25 mg IVPUSH ONETIME ONE Stop: 11/16/18 14:28 Last Admin: 11/16/18 14:49 Dose: 0.25 mg Sodium Chloride (Normal Saline) 1,000 mls @ 125 mls/hr IV ASDIRECTED [place] Last Admin: 11/16/18 10:11 Dose: 125 mls/hr Sodium Chloride (Normal Saline) 500 mls @ 1,000 mls/hr IV .BOLUS ONE Stop: 11/16/18 04:31 Last Admin: 11/16/18 04:06 Dose: 1,000 mls/hr Magnesium Sulfate/Dextrose 1 (gm/ Premix) 100 mls @ 100 mls/hr IV ONETIME ONE Stop: 11/16/18 19:22 Last Admin: 11/16/18 19:07 Dose: 100 mls/hr Insulin Human Lispro (Humalog) 0 unit SUBCUT QIDACANDBED [facility]; Protocol Ondansetron HCl (Zofran) 4 mg IVPUSH ONETIME ONE Stop: 11/16/18 02:40 Last Admin: 11/16/18 03:01 Dose: 4 mg Ondansetron HCl (Zofran) 4 mg IVPUSH ONETIME ONE Stop: 11/16/18 06:14 Last Admin: 11/16/18 06:20 Dose: 4 mg - Exam General: Alert, Oriented, Cooperative, No Acute Distress HEENT: Pupils Equal, Pupils Reactive, EOMI, Mucous Membr. Moist/[place], Other ( NGT in placed) Neck: Supple Lungs: Normal Respiratory Effort, Decreased Breath Sounds Cardiovascular: Regular Rate, Regular Rhythm GI/Abdominal Exam: Soft, Non-Tender, No Organomegaly, No Distention, No Abnormal Bruit, Abnormal Bowel Sounds (hyperactive) (Female) Exam: Deferred Back Exam: Normal Inspection, Decreased Range of Motion Extremities: Normal Inspection, Normal Range of Motion, Non-Tender, No Pedal Edema, Normal Capillary Refill Peripheral Pulses: 2+: Dorsalis Pedis (L), Dorsalis Pedis (R) Skin: Warm, Dry, Intact Neurological: No New Focal Deficit Psy/Mental Status: Alert, Normal Affect, Normal Mood - Problem List Review Problem List Initiated/Reviewed/Updated: Yes - My Orders Last 24 Hours: My Active Orders 11/16/18 09:38 Resuscitation Status Routine 11/16/18 14:21 Scopolamine [Transderm-Scop] 1.5 mg TRDERM Q72H PRN 11/16/18 18:07 Pramoxine HCl [Sarna Sensitive] 1 applic TOP Q2H PRN 11/16/18 18:15 D5%-0.9% NaCl w/ KCl 40 meq [D5 NS with 40 mEq KCl] 1,000 ml IV ASDIRECTED 11/16/18 18:28 Blood Glucose Check, Bedside [RC] 12,06,18,00 Dextrose 50% in Water 50 ml IVPUSH ASDIRECTED PRN 11/16/18 18:38 Communication Order [RC] 11/16/18 21:00 Betamethasone/Clotrimazole [Lotrisone] 0 gm TOP BID 11/16/18 21:45 Flunisolide [Nasalide Nasal [place]] 0 ml NASBOTH BID 11/17/18 00:00 Insulin Lispro [HumaLOG] 0 unit SUBCUT Q6H 11/17/18 09:00 Mometasone Furoate [Elocon] 1 applic TOP DAILY - Plan Plan:: I/P: Acute: Small Bowel Obstruction, Improving -Risk factor: hx/o intra-abdominal surgery, longstanding hx/o multiple hernias and chronic constipation -Reports right-sided abdominal pain near incisional hernia on right abdomen -Hospitalized for abdominal pain in past from 06/09/18-06/11/18 -Surgical consult but no surgical intervention warranted -Nausea and vomiting but no fever, chills, diarrhea, chest pain, resolved -WBC 9.68; CRP <0.2; 5.3, TSH pending -ED provider attempted to reduce hernia but was unable -CT scan in ED on 11/16/18: * 1. Dilated small bowel loops compatible with distal small bowel obstruction , etiology not identified findings most likely due to adhesion. * 2. Anterior abdominal wall hernia containing nondilated stomach antrum, second hernia more inferiorly to the left of midline which previously contained a loop of small bowel which contains fat on current study. 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 * 3. Hiatal hernia with gastroesophageal reflux of contrast. * 4. Incidental left-sided nonobstructing renal calculi. -NG tube placed in ED; may come off pending approval from Dr. Carlson -NPO w/ ice chips and sips of water -Pain medications as ordered -Reglan Q6Hr scheduled for prokinetic agent -Dr. Carlson, general surgeon, consulted in ED -Suggests continuing NG tube and IV hydration -Reports non-surgical at this time -Reports prior hernia is not cause of obstruction currently, likely cause in pelvis -Reports nursing should frequently check NG tube as it is prone to obstruction due to size used -IV fluids as ordered -Anti-emetics covered by prokinetic agent as above added scopolamine patch x1 -Ambulate as many as as she can Acute Renal Injury, Improved -BUN 39; Creatinine 1.8-->1.3 -eGFR 26-->39 -Baseline creatinine appears to be 1.1-1.4 with eGFR of mid 30-40's -IV fluids as ordered; switched to D5NS plus KCl -2/2 to poor oral intake and GI loss from above -Avoid nephrotoxic agents if able Permissive Hyperglycemia -2/2 D5W infusion from being NPO - Hopefully she will come off NPO status today awaiting approval from Dr. Carlson HTN - Carries a hx/o HTN - She has been NPO - Will resume home BP regimen and add PRN anti-hypertensive agent Chronic: Impaired vision Hard of hearing Chronic constipation Hiatal hernia Chronic back pain Osteoarthritis Hypothyroidism Urticaria Plan: She is clinically stable Other orders as indicated above Routine AM labs If diet is approved, she will be started on clear liquids and advance to soft then regular as tolerated Discontinue PT/OT as services not available on weekend CM/SW for discharge planning DVT prophylaxis: SCDs (elevated creatinine) GI prophylaxis: PPI Encourage to ambulate as part of therapy Code status: DNR/DNI; PCP: Dr. Ledesma
[2018-11-17] MEDS: Doxazosin 2 MG Tab PO SCH ×2 (08:33→20:08)
[2018-11-17] MEDS: Atenolol 25 MG Tab PO SCH (08:36)
[2018-11-17] MEDS: Aspirin 81 MG Tab.EC PO SCH (08:41)
[2018-11-17] MEDS: Betamethasone Dipropionate/Clotrimazole 0.05-1% Crm 15 GM Tube TOP SCH ×2 (08:43→20:11)
[2018-11-17] MEDS: Pantoprazole 40 MG Vial IVPUSH SCH (08:44)
--- NOTE | 2018-11-17 11:46 | PCM.SURGPN ---
- General Info Date of Service: 11/17/18 Functional Status: Reports: Pain Controlled, Other (Pt removed her own NGT yesterday, was replaced with larger caliber tube. She had a large BM this am and is passing flatus. UTI indicated by findings on the UA) - Patient Data Vitals - Most Recent: Last Vital Signs Temp 37.4 C 11/17/18 08:25 Pulse 77 11/17/18 08:36 Resp 20 11/17/18 08:25 BP 151/76 H 11/17/18 08:36 Pulse Ox 95 11/17/18 08:25 Weight - Most Recent: 76.34 kg I&O - Last 24 Hours: Intake & Output 11/16/18 11/17/18 11/17/18 22:59 06:59 14:59 Intake Total 731 1270 Output Total 200 1500 Balance 531 -230 Lab Results Last 24 Hrs: Laboratory Results - last 24 hr 11/16/18 11/16/18 11/16/18 Range/Units 03:08 10:55 12:06 WBC (3.98-10.04) K/mm3 RBC (3.98-5.22) M/mm3 Hgb (11.2-15.7) gm/L Hct (34.1-44.9) % MCV (79.4-94.8) fl MCH (25.6-32.2) pg MCHC (32.2-35.5) g/dl RDW Std Deviation (36.4-46.3) fL Plt Count (182-369) K/mm3 MPV (9.4-12.3) fl Neut % (Auto) (34.0-71.1) % Lymph % (Auto) (19.3-51.7) % [place] % (Auto) (4.7-12.5) % Eos % (Auto) (0.7-5.8) Baso % (Auto) (0.1-1.2) % Neut # (Auto) (1.56-6.13) K/mm3 Lymph # (Auto) (1.18-3.74) K/mm3 [place] # (Auto) (0.24-0.36) K/mm3 Eos # (Auto) (0.04-0.36) K/mm3 Baso # (Auto) (0.01-0.08) K/mm3 Sodium (136-145) mEq/L Potassium (3.5-5.1) mEq/L Chloride (98-107) mEq/L Carbon Dioxide (21-32) mEq/L Anion Gap (5-15) BUN (7-18) mg/dL Creatinine (0.55-1.02) mg/dL Est Cr Clr Drug Dosing mL/min Estimated GFR (MDRD) (>60) mL/min BUN/Creatinine Ratio (14-18) Glucose (83-115) mg/dL POC Glucose 169 H (83-110) mg/dL Calcium (8.5-10.1) mg/dL Magnesium (1.8-2.4) mg/dl C-Reactive Protein (<1.0) mg/dL Free T4 1.38 (0.76-1.46) ng/dL TSH 3rd Generation 5.371 H (0.358-3.74) uIU/mL Urine Color (Yellow) Urine Appearance (Clear) Urine pH (5.0-8.0) Ur Specific [place] (1.005-1.030) Urine Protein (Negative) Urine Glucose (UA) (Negative) Urine Ketones (Negative) Urine Occult Blood (Negative) Urine Nitrite (Negative) Urine Bilirubin (Negative) Urine Urobilinogen (0.2-1.0) Ur Leukocyte Esterase (Negative) Urine RBC (0-5) /hpf Urine WBC (0-5) /hpf Ur Epithelial Cells (0-5) /hpf Urine Bacteria (FEW) /hpf Urine Mucus (FEW) /hpf 11/16/18 11/16/18 11/16/18 Range/Units 15:20 18:34 23:05 WBC (3.98-10.04) K/mm3 RBC (3.98-5.22) M/mm3 Hgb (11.2-15.7) gm/L Hct (34.1-44.9) % MCV (79.4-94.8) fl MCH (25.6-32.2) pg MCHC (32.2-35.5) g/dl RDW Std Deviation (36.4-46.3) fL Plt Count (182-369) K/mm3 MPV (9.4-12.3) fl Neut % (Auto) (34.0-71.1) % Lymph % (Auto) (19.3-51.7) % [place] % (Auto) (4.7-12.5) % Eos % (Auto) (0.7-5.8) Baso % (Auto) (0.1-1.2) % Neut # (Auto) (1.56-6.13) K/mm3 Lymph # (Auto) (1.18-3.74) K/mm3 [place] # (Auto) (0.24-0.36) K/mm3 Eos # (Auto) (0.04-0.36) K/mm3 Baso # (Auto) (0.01-0.08) K/mm3 Sodium (136-145) mEq/L Potassium (3.5-5.1) mEq/L Chloride (98-107) mEq/L Carbon Dioxide (21-32) mEq/L Anion Gap (5-15) BUN (7-18) mg/dL Creatinine (0.55-1.02) mg/dL Est Cr Clr Drug Dosing mL/min Estimated GFR (MDRD) (>60) mL/min BUN/Creatinine Ratio (14-18) Glucose (83-115) mg/dL POC Glucose 159 H 207 H (83-110) mg/dL Calcium (8.5-10.1) mg/dL Magnesium (1.8-2.4) mg/dl C-Reactive Protein (<1.0) mg/dL Free T4 (0.76-1.46) ng/dL TSH 3rd Generation (0.358-3.74) uIU/mL Urine Color Yellow (Yellow) Urine Appearance Turbid H (Clear) Urine pH 6.0 (5.0-8.0) Ur Specific [place] > or = 1.030 (1.005-1.030) Urine Protein 1+ H (Negative) Urine Glucose (UA) Negative (Negative) Urine Ketones Negative (Negative) Urine Occult Blood 2+ H (Negative) Urine Nitrite Negative (Negative) Urine Bilirubin Negative (Negative) Urine Urobilinogen 0.2 (0.2-1.0) Ur Leukocyte Esterase 1+ H (Negative) Urine RBC 5-10 H (0-5) /hpf Urine WBC 30-40 H (0-5) /hpf Ur Epithelial Cells 0-5 (0-5) /hpf Urine Bacteria Many H (FEW) /hpf Urine Mucus Moderate H (FEW) /hpf 11/17/18 11/17/18 Range/Units 05:50 05:50 WBC 8.60 (3.98-10.04) K/mm3 RBC 3.67 L (3.98-5.22) M/mm3 Hgb 11.1 L (11.2-15.7) gm/L Hct 34.2 (34.1-44.9) % MCV 93.2 (79.4-94.8) fl MCH 30.2 (25.6-32.2) pg MCHC 32.5 (32.2-35.5) g/dl RDW Std Deviation 48.0 H (36.4-46.3) fL Plt Count 230 (182-369) K/mm3 MPV 10.0 (9.4-12.3) fl Neut % (Auto) 76.9 H (34.0-71.1) % Lymph % (Auto) 13.6 L (19.3-51.7) % [place] % (Auto) 8.7 (4.7-12.5) % Eos % (Auto) 0.5 L (0.7-5.8) Baso % (Auto) 0.2 (0.1-1.2) % Neut # (Auto) 6.61 H (1.56-6.13) K/mm3 Lymph # (Auto) 1.17 L (1.18-3.74) K/mm3 [place] # (Auto) 0.75 H (0.24-0.36) K/mm3 Eos # (Auto) 0.04 (0.04-0.36) K/mm3 Baso # (Auto) 0.02 (0.01-0.08) K/mm3 Sodium 141 (136-145) mEq/L Potassium 4.1 (3.5-5.1) mEq/L Chloride 105 (98-107) mEq/L Carbon Dioxide 26 (21-32) mEq/L Anion Gap 14.1 (5-15) BUN 34 H (7-18) mg/dL Creatinine 1.3 H (0.55-1.02) mg/dL Est Cr Clr Drug Dosing 23.20 mL/min Estimated GFR (MDRD) 39 (>60) mL/min BUN/Creatinine Ratio 26.2 H (14-18) Glucose 191 H (83-115) mg/dL POC Glucose (83-110) mg/dL Calcium 8.9 (8.5-10.1) mg/dL Magnesium 1.9 (1.8-2.4) mg/dl C-Reactive Protein 1.9 H* (<1.0) mg/dL Free T4 (0.76-1.46) ng/dL TSH 3rd Generation (0.358-3.74) uIU/mL Urine Color (Yellow) Urine Appearance (Clear) Urine pH (5.0-8.0) Ur Specific [place] (1.005-1.030) Urine Protein (Negative) Urine Glucose (UA) (Negative) Urine Ketones (Negative) Urine Occult Blood (Negative) Urine Nitrite (Negative) Urine Bilirubin (Negative) Urine Urobilinogen (0.2-1.0) Ur Leukocyte Esterase (Negative) Urine RBC (0-5) /hpf Urine WBC (0-5) /hpf Ur Epithelial Cells (0-5) /hpf Urine Bacteria (FEW) /hpf Urine Mucus (FEW) /hpf Med Orders - Current: Current Medications Aspirin (Halfprin) 81 mg PO DAILY [facility] Last Admin: 11/17/18 08:41 Dose: 81 mg Atenolol (Tenormin) 25 mg PO DAILY [facility] Last Admin: 11/17/18 08:36 Dose: 25 mg Benazepril HCl (Lotensin) 20 mg PO BID [facility] Betamethasone/Clotrimazole (Lotrisone) 0 gm TOP BID [facility] Last Admin: 11/17/18 08:43 Dose: 1 applic Dextrose/Water (Dextrose 50% In Water) 50 ml IVPUSH ASDIRECTED PRN PRN Reason: Hypoglycemia Doxazosin Mesylate (Cardura) 1 mg PO BID [facility] Last Admin: 11/17/18 08:33 Dose: 1 mg Flunisolide (Nasalide Nasal [place]) 0 ml NASBOTH BID [facility] Last Admin: 11/17/18 08:43 Dose: 2 sprays Gabapentin (Neurontin) 300 mg PO BEDTIME [facility] Hydralazine HCl (Apresoline) 10 mg IVPUSH Q6H PRN PRN Reason: Hypertension Hydrochlorothiazide (Hydrochlorothiazide) 25 mg PO DAILY [facility] Hydromorphone HCl (Dilaudid) 0.5 mg IVPUSH Q2H PRN PRN Reason: Pain (severe 7-10) Sodium Chloride (Normal Saline) 1,000 mls @ 125 mls/hr IV ASDIRECTED [facility] Levothyroxine Sodium (Synthroid) 50 mcg PO ACBREAKFAST [facility] Last Admin: 11/17/18 05:32 Dose: 50 mcg Magnesium Sulfate (Pharmacy To Dose - Magnesium Replacement) 1 dose .XX ASDIRECTED [facility] Metoclopramide HCl (Reglan) 5 mg IVPUSH Q6H [facility] Stop: 11/18/18 05:31 Metoprolol Tartrate (Lopressor) 5 mg IVPUSH Q4H PRN PRN Reason: Tachycardia Miscellaneous Information (Remove Patch) 0 ea TRDERM Q72H [facility] Nifedipine (Procardia Xl) 90 mg PO DAILY [facility] Ondansetron HCl (Zofran) 4 mg IV Q6H PRN PRN Reason: Nausea/Vomiting Pantoprazole Sodium (Protonix Iv) 40 mg IVPUSH DAILY [facility] Last Admin: 11/17/18 08:44 Dose: 40 mg Mometasone Furoate [ Elocon] Patient's Own Med 0 each TOP DAILY [facility] Pramoxine Hcl [Sarna Sensitive] Patients Own Med 0 each TOP Q2H PRN PRN Reason: Rash Potassium Chloride (Pharmacy To Dose - Potassium Replacement) 1 dose .XX ASDIRECTED [facility] Scopolamine (Transderm-Scop) 1.5 mg TRDERM Q72H PRN PRN Reason: Nausea/Vomiting Last Admin: 11/16/18 14:52 Dose: 1.5 mg Sodium Chloride (Saline Flush) 10 ml FLUSH ASDIRECTED PRN PRN Reason: Keep Vein Open Last Admin: 11/16/18 03:02 Dose: 10 ml Discontinued Medications Fluticasone Propionate (Flonase) 0 gm NASBOTH BID [facility] Gabapentin (Neurontin) 300 mg PO BEDTIME [facility] Last Admin: 11/16/18 22:02 Dose: 300 mg Hydromorphone HCl (Dilaudid) 0.5 mg IVPUSH ONETIME ONE Stop: 11/16/18 02:41 Last Admin: 11/16/18 03:01 Dose: 0.5 mg Hydromorphone HCl (Dilaudid) 0.25 mg IVPUSH ONETIME ONE Stop: 11/16/18 14:28 Last Admin: 11/16/18 14:49 Dose: 0.25 mg Sodium Chloride (Normal Saline) 1,000 mls @ 125 mls/hr IV ASDIRECTED [facility] Last Admin: 11/16/18 10:11 Dose: 125 mls/hr Sodium Chloride (Normal Saline) 500 mls @ 1,000 mls/hr IV .BOLUS ONE Stop: 11/16/18 04:31 Last Admin: 11/16/18 04:06 Dose: 1,000 mls/hr Potassium Chloride/Dextrose/Sod Cl (D5 Ns With 40 Meq Kcl) 1,000 mls @ 125 mls/ hr IV ASDIRECTED [facility] Last Admin: 11/17/18 03:48 Dose: 125 mls/hr Magnesium Sulfate/Dextrose 1 (gm/ Premix) 100 mls @ 100 mls/hr IV ONETIME ONE Stop: 11/16/18 19:22 Last Admin: 11/16/18 19:07 Dose: 100 mls/hr Insulin Human Lispro (Humalog) 0 unit SUBCUT QIDACANDBED [facility]; Protocol Insulin Human Lispro (Humalog) 0 unit SUBCUT Q6H [facility]; Protocol Last Admin: 11/17/18 05:31 Dose: 2 unit Metoclopramide HCl (Reglan) 10 mg IVPUSH Q6H [facility] Last Admin: 11/17/18 05:34 Dose: 10 mg Ondansetron HCl (Zofran) 4 mg IVPUSH ONETIME ONE Stop: 11/16/18 02:40 Last Admin: 11/16/18 03:01 Dose: 4 mg Ondansetron HCl (Zofran) 4 mg IVPUSH ONETIME ONE Stop: 11/16/18 06:14 Last Admin: 11/16/18 06:20 Dose: 4 mg - Exam General: Alert, Cooperative HEENT: Other (NGT in place with brown aspirate) Neck: Supple Lungs: Normal Respiratory Effort GI/Abdominal Exam: Soft, Non-Tender, No Distention - Problem List & Annotations (1) Small bowel obstruction SNOMED Code(s): 829820766 Code(s): K56.609 - UNSP INTESTNL OBST, UNSP TO PARTIAL VERSUS COMPLETE OBST Status: Acute Priority: High Current Visit: Yes - Problem List Review Problem List Initiated/Reviewed/Updated: Yes - My Orders Last 24 Hours: Active Orders 24 hr Category Date Time Status Ambulate [RC] QID Care 11/16/18 11:11 Active Communication Order [RC] 09,21 Care 11/16/18 18:38 Active Notify Provider Consults [RC] ASDIRECTED Care 11/16/18 11:23 Active Consult to Physician [CONS] Routine Cons 11/16/18 11:21 Active Clear Liquid Diet [DIET] Diet 11/17/18 Lunch Active Regular Diet [DIET] Diet 11/18/18 Breakfast Active Soft Diet [DIET] Diet 11/17/18 Dinner Active BASIC METABOLIC PANEL,BMP [CHEM] AM Lab 11/18/18 05:11 Ordered BASIC METABOLIC PANEL,BMP [CHEM] AM Lab 11/19/18 05:11 Ordered BASIC METABOLIC PANEL,BMP [CHEM] AM Lab 11/20/18 05:11 Ordered CBC WITH AUTO DIFF [HEME] AM Lab 11/18/18 05:11 Ordered CBC WITH AUTO DIFF [HEME] AM Lab 11/19/18 05:11 Ordered CBC WITH AUTO DIFF [HEME] AM Lab 11/20/18 05:11 Ordered CRP [C-REACTIVE PROTEIN] [CHEM] AM Lab 11/18/18 05:11 Ordered CRP [C-REACTIVE PROTEIN] [CHEM] AM Lab 11/19/18 05:11 Ordered CRP [C-REACTIVE PROTEIN] [CHEM] AM Lab 11/20/18 05:11 Ordered MAGNESIUM [CHEM] AM Lab 11/18/18 05:11 Ordered MAGNESIUM [CHEM] AM Lab 11/19/18 05:11 Ordered MAGNESIUM [CHEM] AM Lab 11/20/18 05:11 Ordered Aspirin [Halfprin] Med 11/17/18 09:00 Active 81 mg PO DAILY Atenolol [Tenormin] Med 11/16/18 11:15 Active 25 mg PO DAILY Benazepril [Lotensin] Med 11/17/18 21:00 Active 20 mg PO BID Betamethasone/Clotrimazole [Lotrisone] Med 11/16/18 21:00 Active 0 gm TOP BID Dextrose 50% in Water Med 11/16/18 18:28 Active 50 ml IVPUSH ASDIRECTED PRN Doxazosin [Cardura] Med 11/16/18 21:00 Active 1 mg PO BID Flunisolide [Nasalide Nasal [place]] Med 11/16/18 21:45 Active 0 ml NASBOTH BID Gabapentin [Neurontin] Med 11/21/18 11:26 Active 300 mg PO BEDTIME Levothyroxine [Synthroid] Med 11/17/18 06:00 Active 50 mcg PO ACBREAKFAST Metoclopramide [Reglan] Med 11/17/18 11:30 Active 5 mg IVPUSH Q6H NIFEdipine [Procardia XL] Med 11/18/18 09:00 Active 90 mg PO DAILY Patient's Own Medication [Ptom] Med 11/17/18 09:00 Active 0 each TOP DAILY Patient's Own Medication [Ptom] Med 11/16/18 18:07 Active 0 each TOP Q2H PRN Remove Patch Med 11/19/18 14:30 Active 0 ea TRDERM Q72H Scopolamine [Transderm-Scop] Med 11/16/18 14:21 Active 1.5 mg TRDERM Q72H PRN Sodium Chloride 0.9% [Normal Saline] 1,000 ml Med 11/17/18 11:30 Active IV ASDIRECTED hydroCHLOROthiazide Med 11/18/18 09:00 Active 25 mg PO DAILY Medication Orders Aspirin (Halfprin) 81 mg PO DAILY [facility] Last Admin: 11/17/18 08:41 Dose: 81 mg Atenolol (Tenormin) 25 mg PO DAILY [facility] Last Admin: 11/17/18 08:36 Dose: 25 mg Admin: 11/16/18 14:22 Dose: Benazepril HCl (Lotensin) 20 mg PO BID [facility] Betamethasone/Clotrimazole (Lotrisone) 0 gm TOP BID [facility] Last Admin: 11/17/18 08:43 Dose: 1 applic Admin: 11/16/18 22:06 Dose: 1 applic Dextrose/Water (Dextrose 50% In Water) 50 ml IVPUSH ASDIRECTED PRN PRN Reason: Hypoglycemia Doxazosin Mesylate (Cardura) 1 mg PO BID [facility] Last Admin: 11/17/18 08:33 Dose: 1 mg Admin: 11/16/18 22:02 Dose: 1 mg Flunisolide (Nasalide Nasal [place]) 0 ml NASBOTH BID [facility] Last Admin: 11/17/18 08:43 Dose: 2 sprays Admin: 11/16/18 22:04 Dose: 1 sprays Gabapentin (Neurontin) 300 mg PO BEDTIME [facility] Hydralazine HCl (Apresoline) 10 mg IVPUSH Q6H PRN PRN Reason: Hypertension Hydrochlorothiazide (Hydrochlorothiazide) 25 mg PO DAILY [facility] Hydromorphone HCl (Dilaudid) 0.5 mg IVPUSH Q2H PRN PRN Reason: Pain (severe 7-10) Sodium Chloride (Normal Saline) 1,000 mls @ 125 mls/hr IV ASDIRECTED [facility] Levothyroxine Sodium (Synthroid) 50 mcg PO ACBREAKFAST [facility] Last Admin: 11/17/18 05:32 Dose: 50 mcg Magnesium Sulfate (Pharmacy To Dose - Magnesium Replacement) 1 dose .XX ASDIRECTED [facility] Metoclopramide HCl (Reglan) 5 mg IVPUSH Q6H [facility] Stop: 11/18/18 05:31 Metoprolol Tartrate (Lopressor) 5 mg IVPUSH Q4H PRN PRN Reason: Tachycardia Miscellaneous Information (Remove Patch) 0 ea TRDERM Q72H [facility] Nifedipine (Procardia Xl) 90 mg PO DAILY [facility] Ondansetron HCl (Zofran) 4 mg IV Q6H PRN PRN Reason: Nausea/Vomiting Pantoprazole Sodium (Protonix Iv) 40 mg IVPUSH DAILY [facility] Last Admin: 11/17/18 08:44 Dose: 40 mg Admin: 11/16/18 10:10 Dose: 40 mg Mometasone Furoate [ [place]] Patient's Own Med 0 each TOP DAILY [facility] Pramoxine Hcl [Sarna Sensitive] Patients Own Med 0 each TOP Q2H PRN PRN Reason: Rash Potassium Chloride (Pharmacy To Dose - Potassium Replacement) 1 dose .XX ASDIRECTED [facility] Scopolamine (Transderm-Scop) 1.5 mg TRDERM Q72H PRN PRN Reason: Nausea/Vomiting Last Admin: 11/16/18 14:52 Dose: 1.5 mg Sodium Chloride (Saline Flush) 10 ml FLUSH ASDIRECTED PRN PRN Reason: Keep Vein Open Last Admin: 11/16/18 03:02 Dose: 10 ml - Assessment Assessment (Free Text/Narrative):: 88 y/o lady with resolving SBO, also with concurrent UTI - Plan Plan (Free Text/Narrative):: - Pt has had return of bowel function, recommend d/c NGT and advance diet to clears - may advance diet as tolerated afterwards - Treatment of UTI per primary team - no indication for surgical intervention. Pt is asymptomatic for hernias at this time. Elective intervention on hernias likely would result in unnecessary comorbidity. Surgery will sign off. Karly Schofield MD General Surgery
[2018-11-17] MEDS: Sodium Chloride 0.9% 1,000 ML IV SCH ×2 (12:18→22:45)
[2018-11-17] MEDS: MOMETASONE FUROATE TOP SCH (14:04)
[2018-11-17] MEDS: Acetaminophen 325 MG Tab PO PRN (22:50)
[2018-11-18] MEDS: Metoclopramide 10 MG/2 ML SDV IVPUSH SCH (05:35)
[2018-11-18] MEDS: Levothyroxine 50 MCG Tab PO SCH (05:40)
[2018-11-18] MEDS: Sodium Chloride 0.9% 1,000 ML IV SCH (07:37)
[2018-11-18] MEDS: Aspirin 81 MG Tab.EC PO SCH (07:59)
[2018-11-18] MEDS: Doxazosin 2 MG Tab PO SCH ×2 (07:59→20:05)
[2018-11-18] MEDS: Pantoprazole 40 MG Vial IVPUSH SCH (07:59)
[2018-11-18] MEDS: NIFEdipine 30 MG Tab.ER PO SCH (08:00)
[2018-11-18] MEDS: Atenolol 25 MG Tab PO SCH (08:02)
[2018-11-18] MEDS: Hydrochlorothiazide 25 MG Tab PO SCH (08:02)
[2018-11-18] MEDS: Betamethasone Dipropionate/Clotrimazole 0.05-1% Crm 15 GM Tube TOP SCH ×2 (08:03→20:06)
[2018-11-18] MEDS: MOMETASONE FUROATE TOP SCH (08:09)
[2018-11-18] MEDS ORDERED: cefTRIAXone 1 GM in Sodium Chloride 0.9% 100 ML IV ONE (09:17)
--- NOTE | 2018-11-18 10:32 | PCM.PN ---
- General Info Date of Service: 11/18/18 Admission Dx/Problem (Free Text): Admission Diagnosis/Problem Admission Diagnosis/Problem Small bowel obstruction Subjective Update: Follow Up Functional Status: Reports: Pain Controlled, Tolerating Diet, Ambulating, Urinating, New Symptoms - Review of Systems General: Reports: Weakness. Denies: Fever, Fatigue, Malaise, Chills HEENT: Reports: No Symptoms Pulmonary: Denies: Shortness of Breath Cardiovascular: Denies: Chest Pain, Dyspnea on Exertion, Lightheadedness Gastrointestinal: Denies: Abdominal Pain, Decreased Appetite, Nausea, Vomiting Genitourinary: Reports: No Symptoms, Incontinence Skin: Denies: Cyanosis, Mottled, Pallor, Diaphoresis, Bruising Neurological: Reports: Confusion, Difficulty Walking, Gait Disturbance Psychiatric: Denies: Anxiety, Agitation, Hallucinations Systems Review Comment:: No significant overnight issues. However she seems to be confused this morning per day nurse. She also had a witnessed fall where she slid down on her chair. She however remains afebrile w/o leukocytosis. She is now completely off prokinetic agent. Her Mg level is slightly low at 1.7. She ambulates but with assistance. No issues with breakfast this morning. - Patient Data Vitals - Most Recent: Last Vital Signs Temp 36.6 C 11/18/18 07:37 Pulse 61 11/18/18 08:02 Resp 16 11/18/18 07:37 BP 145/56 H 11/18/18 08:02 Pulse Ox 97 11/18/18 07:37 Weight - Most Recent: 77.746 kg I&O - Last 24 Hours: Intake & Output 11/17/18 11/18/18 11/18/18 22:59 06:59 14:59 Intake Total 2189 1593 180 Output Total 400 100 Balance 1789 1493 180 Lab Results Last 24 Hours: Laboratory Results - last 24 hr 11/17/18 11/18/18 11/18/18 Range/Units 05:18 06:15 06:15 WBC 6.90 (3.98-10.04) K/mm3 RBC 3.32 L (3.98-5.22) M/mm3 Hgb 10.0 L (11.2-15.7) gm/L Hct 31.5 L (34.1-44.9) % MCV 94.9 H (79.4-94.8) fl MCH 30.1 (25.6-32.2) pg MCHC 31.7 L (32.2-35.5) g/dl RDW Std Deviation 48.3 H (36.4-46.3) fL Plt Count 182 (182-369) K/mm3 MPV 10.4 (9.4-12.3) fl Neut % (Auto) 57.2 (34.0-71.1) % Lymph % (Auto) 26.7 (19.3-51.7) % Green % (Auto) 10.4 (4.7-12.5) % Eos % (Auto) 4.6 (0.7-5.8) Baso % (Auto) 0.7 (0.1-1.2) % Neut # (Auto) 3.94 (1.56-6.13) K/mm3 Lymph # (Auto) 1.84 (1.18-3.74) K/mm3 Green # (Auto) 0.72 H (0.24-0.36) K/mm3 Eos # (Auto) 0.32 (0.04-0.36) K/mm3 Baso # (Auto) 0.05 (0.01-0.08) K/mm3 Sodium 142 (136-145) mEq/L Potassium 4.1 (3.5-5.1) mEq/L Chloride 106 (98-107) mEq/L Carbon Dioxide 25 (21-32) mEq/L Anion Gap 15.1 H (5-15) BUN 27 H (7-18) mg/dL Creatinine 1.1 H (0.55-1.02) mg/dL Est Cr Clr Drug Dosing 27.42 mL/min Estimated GFR (MDRD) 47 (>60) mL/min BUN/Creatinine Ratio 24.5 H (14-18) Glucose 117 H (83-115) mg/dL POC Glucose 163 H (83-110) mg/dL Calcium 8.7 (8.5-10.1) mg/dL Magnesium 1.7 L (1.8-2.4) mg/dl C-Reactive Protein 2.2 H* (<1.0) mg/dL Med Orders - Current: Current Medications Acetaminophen (Tylenol) 650 mg PO Q4H PRN PRN Reason: Pain/Fever Last Admin: 11/17/18 22:50 Dose: 650 mg Aspirin (Halfprin) 81 mg PO DAILY [facility] Last Admin: 11/18/18 07:59 Dose: 81 mg Atenolol (Tenormin) 25 mg PO DAILY [facility] Last Admin: 11/18/18 08:02 Dose: 25 mg Benazepril HCl (Lotensin) 20 mg PO BID [facility] Last Admin: 11/18/18 08:02 Dose: 20 mg Betamethasone/Clotrimazole (Lotrisone) 0 gm TOP BID [facility] Last Admin: 11/18/18 08:03 Dose: 1 applic Dextrose/Water (Dextrose 50% In Water) 50 ml IVPUSH ASDIRECTED PRN PRN Reason: Hypoglycemia Doxazosin Mesylate (Cardura) 1 mg PO BID [facility] Last Admin: 11/18/18 07:59 Dose: 1 mg Flunisolide (Nasalide Nasal [place]) 0 ml NASBOTH BID [facility] Last Admin: 11/18/18 07:59 Dose: 2 sprays Gabapentin (Neurontin) 300 mg PO BEDTIME [facility] Hydralazine HCl (Apresoline) 10 mg IVPUSH Q6H PRN PRN Reason: Hypertension Hydrochlorothiazide (Hydrochlorothiazide) 25 mg PO DAILY [facility] Last Admin: 11/18/18 08:02 Dose: 25 mg Hydromorphone HCl (Dilaudid) 0.5 mg IVPUSH Q2H PRN PRN Reason: Pain (severe 7-10) Levothyroxine Sodium (Synthroid) 50 mcg PO ACBREAKFAST [facility] Last Admin: 11/18/18 05:40 Dose: 50 mcg Magnesium Sulfate (Pharmacy To Dose - Magnesium Replacement) 1 dose .XX ASDIRECTED [facility] Metoprolol Tartrate (Lopressor) 5 mg IVPUSH Q4H PRN PRN Reason: Tachycardia Miscellaneous Information (Remove Patch) 0 ea TRDERM Q72H [facility] Nifedipine (Procardia Xl) 90 mg PO DAILY [facility] Last Admin: 11/18/18 08:00 Dose: 90 mg Ondansetron HCl (Zofran) 4 mg IV Q6H PRN PRN Reason: Nausea/Vomiting Pantoprazole Sodium (Protonix Iv) 40 mg IVPUSH DAILY [facility] Last Admin: 11/18/18 07:59 Dose: 40 mg Mometasone Furoate [ Elocon] Patient's Own Med 0 each TOP DAILY [facility] Last Admin: 11/18/18 08:09 Dose: Not Given Pramoxine Hcl [Sarna Sensitive] Patients Own Med 0 each TOP Q2H PRN PRN Reason: Rash Potassium Chloride (Pharmacy To Dose - Potassium Replacement) 1 dose .XX ASDIRECTED [facility] Scopolamine (Transderm-Scop) 1.5 mg TRDERM Q72H PRN PRN Reason: Nausea/Vomiting Last Admin: 11/16/18 14:52 Dose: 1.5 mg Sodium Chloride (Saline Flush) 10 ml FLUSH ASDIRECTED PRN PRN Reason: Keep Vein Open Last Admin: 11/16/18 03:02 Dose: 10 ml Discontinued Medications Fluticasone Propionate (Flonase) 0 gm NASBOTH BID [facility] Last Admin: 11/17/18 14:05 Dose: Not Given Gabapentin (Neurontin) 300 mg PO BEDTIME [facility] Last Admin: 11/16/18 22:02 Dose: 300 mg Hydromorphone HCl (Dilaudid) 0.5 mg IVPUSH ONETIME ONE Stop: 11/16/18 02:41 Last Admin: 11/16/18 03:01 Dose: 0.5 mg Hydromorphone HCl (Dilaudid) 0.25 mg IVPUSH ONETIME ONE Stop: 11/16/18 14:28 Last Admin: 11/16/18 14:49 Dose: 0.25 mg Sodium Chloride (Normal Saline) 1,000 mls @ 125 mls/hr IV ASDIRECTED [facility] Last Admin: 11/16/18 10:11 Dose: 125 mls/hr Sodium Chloride (Normal Saline) 500 mls @ 1,000 mls/hr IV .BOLUS ONE Stop: 11/16/18 04:31 Last Admin: 11/16/18 04:06 Dose: 1,000 mls/hr Potassium Chloride/Dextrose/Sod Cl (D5 Ns With 40 Meq Kcl) 1,000 mls @ 125 mls/ hr IV ASDIRECTED [facility] Last Admin: 11/17/18 03:48 Dose: 125 mls/hr Magnesium Sulfate/Dextrose 1 (gm/ Premix) 100 mls @ 100 mls/hr IV ONETIME ONE Stop: 11/16/18 19:22 Last Admin: 11/16/18 19:07 Dose: 100 mls/hr Sodium Chloride (Normal Saline) 1,000 mls @ 125 mls/hr IV ASDIRECTED [facility] Last Admin: 11/18/18 07:37 Dose: 125 mls/hr Ceftriaxone Sodium 1 gm/ (Sodium Chloride) 100 mls @ 200 mls/hr IV ONETIME ONE Stop: 11/18/18 09:46 Last Admin: 11/18/18 09:39 Dose: 200 mls/hr Insulin Human Lispro (Humalog) 0 unit SUBCUT QIDACANDBED [facility]; Protocol Insulin Human Lispro (Humalog) 0 unit SUBCUT Q6H [facility]; Protocol Last Admin: 11/17/18 05:31 Dose: 2 unit Metoclopramide HCl (Reglan) 10 mg IVPUSH Q6H [facility] Last Admin: 11/17/18 14:05 Dose: Not Given Metoclopramide HCl (Reglan) 5 mg IVPUSH Q6H [facility] Stop: 11/18/18 05:31 Last Admin: 11/18/18 05:35 Dose: 5 mg Ondansetron HCl (Zofran) 4 mg IVPUSH ONETIME ONE Stop: 11/16/18 02:40 Last Admin: 11/16/18 03:01 Dose: 4 mg Ondansetron HCl (Zofran) 4 mg IVPUSH ONETIME ONE Stop: 11/16/18 06:14 Last Admin: 11/16/18 06:20 Dose: 4 mg - Exam General: Alert, Cooperative, No Acute Distress. No: Oriented HEENT: Pupils Equal, Pupils Reactive, EOMI, Mucous Membr. Moist/[place] Neck: Supple Lungs: Normal Respiratory Effort, Decreased Breath Sounds Cardiovascular: Regular Rate, Regular Rhythm GI/Abdominal Exam: Normal Bowel Sounds, Soft, Non-Tender, No Organomegaly, No Distention, No Abnormal Bruit (Female) Exam: Deferred Back Exam: Normal Inspection, Decreased Range of Motion Extremities: Normal Inspection, Normal Range of Motion, No Pedal Edema, Normal Capillary Refill Peripheral Pulses: 2+: Dorsalis Pedis (L), Dorsalis Pedis (R) Skin: Warm, Dry, Intact Neurological: No New Focal Deficit. No: Normal Gait Psy/Mental Status: Alert, Normal Affect, Normal Mood - Problem List Review Problem List Initiated/Reviewed/Updated: Yes - My Orders Last 24 Hours: My Active Orders 04/06/19 21:00 Benazepril [Lotensin] 20 mg PO BID 11/17/18 21:05 Acetaminophen [Tylenol] 650 mg PO Q4H PRN 11/17/18 21:17 Antiembolic Devices [RC] PER UNIT ROUTINE SCD [Sequential Compression Device] [OM.PC] Routine 11/18/18 09:00 NIFEdipine [Procardia XL] 90 mg PO DAILY hydroCHLOROthiazide 25 mg PO DAILY 11/18/18 18:34 CULTURE URINE [RM] Routine 11/18/18 Breakfast Regular Diet [DIET] 11/21/18 11:26 Gabapentin [Neurontin] 300 mg PO BEDTIME - Plan Plan:: I/P: Acute: AMS/Encephalopathy -Suspect Metabolic vs Medication Induced -She was just d/c'd on Reglan; not receiving narcotics or benzos -Initial UA not impressive; will repeat UA w/ Cx/Sx -Go ahead and start 1 gram of Rocephin for presumptive UTI; d/c if repeat UA is clean -[employer] eval r/o undiagnosed cognitive impairment Probable UTI -Initial UA sample not clean -Has signs of confusion; CRP went up a bit -Go ahead and start antibiotic treatment; discontinue if repeat urinalysis is clean -Start probiotic HTN -Carries a hx/o HTN -She has been NPO -Will resume home BP regimen and add PRN anti-hypertensive agent -She was getting IVF; will now d/c it Hypomagnesemia -Mg 1.7 -2/2 inadequate intake -Just started regular solid diet this AM -Replete and monitor Gait Instability -She has baseline peripheral neuropathy -Ambulates with 1 assist -PT/OT re-eval tomorrow for HSE Resolved: S/p Acute Renal Injury -At baseline -BUN 39; Creatinine 1.8-->1.3-->1.1 -eGFR 26-->39-->47 -Baseline creatinine appears to be 1.1-1.4 with eGFR of mid 30-40's -IV fluids as ordered; switched to D5NS plus KCl -2/2 to poor oral intake and GI loss from above -Avoid nephrotoxic agents if able S/p Permissive Hyperglycemia -2/2 D5W infusion from being NPO -Hopefully she will come off NPO status today awaiting approval from Dr. Carlson S/p Small Bowel Obstruction -Risk factor: hx/o intra-abdominal surgery, longstanding hx/o multiple hernias and chronic constipation -Reports right-sided abdominal pain near incisional hernia on right abdomen -Hospitalized for abdominal pain in past from 06/09/18-06/11/18 -Surgical consult but no surgical intervention warranted -Nausea and vomiting but no fever, chills, diarrhea, chest pain, resolved -WBC 9.68; CRP <0.2; 5.3, TSH pending -ED provider attempted to reduce hernia but was unable -CT scan in ED on 11/16/18: * 1. Dilated small bowel loops compatible with distal small bowel obstruction , etiology not identified findings most likely due to adhesion. * 2. Anterior abdominal wall hernia containing nondilated stomach antrum, second hernia more inferiorly to the left of midline which previously contained a loop of small bowel which contains fat on current study. 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 * 3. Hiatal hernia with gastroesophageal reflux of contrast. * 4. Incidental left-sided nonobstructing renal calculi. -NG tube placed in ED; may come off pending approval from Dr. Carlson -Now tolerating regular meal -Pain medications as ordered -Discontinued Reglan Q6Hr scheduled for prokinetic agent -Dr. Carlson, general surgeon, consulted in ED -Suggests continuing NG tube and IV hydration -Reports non-surgical at this time -Reports prior hernia is not cause of obstruction currently, likely cause in pelvis -Reports nursing should frequently check NG tube as it is prone to obstruction due to size used -IV fluids as ordered; will d/c -Anti-emetics covered by prokinetic agent as above added scopolamine patch x1 -Ambulate as many as as she can Chronic: Impaired vision Hard of hearing Chronic constipation Hiatal hernia Chronic back pain Osteoarthritis Hypothyroidism Urticaria Plan: She remains clinically stable Other orders as indicated above Routine AM labs Repeat UA Fall Precaution Resume PT/OT tomorrow to re-assess for HSE CM/SW for discharge planning DVT prophylaxis: SCDs GI prophylaxis: PPI Encourage to ambulate as tolerated Code status: DNR/DNI; PCP: Dr. Ledesma Possible d/c in AM if stable Updated family at bedside to include DPOA, about her morning labs, overnight/ acute issues, clinical progress, treatment, and discharge care plan.
[2018-11-18] MEDS ORDERED: Magnesium Oxide 400 MG Tab PO ONE (10:45)
--- NOTE | 2018-11-18 12:28 | CR ---
Lumbar spine: AP, lateral and cone down lateral view centered to the lumbosacral junction were obtained. Comparison: Previous reconstructed sagittal images from CT abdomen and pelvis exam of 11/16/18. Severe disc space narrowing is noted at L4-5 with vacuum phenomena. Degenerative change is noted within the apophyseal joints at L4-5 causing spondylolisthesis of approximately 1.1 cm. Moderate disc space narrowing at L5-S1 is seen. Other disks within the lower thoracic spine and lumbar spine show mild narrowing. Vertebral body heights are maintained. Scattered endplate osteophytes are seen. No acute fracture is identified. Mild scoliosis is noted. Impression: 1. Degenerative change as noted above. Nothing acute is definitely appreciated on 3 view lumbar spine exam. Diagnostic code #2
--- NOTE | 2018-11-18 12:28 | CR ---
Left hip: AP and frog-leg lateral views left hip were obtained. Comparison: No prior hip exam. Joint space within the left hip is preserved. Osteopenia is noted. No acute fracture or dislocation is seen. Vascular calcification is noted. Impression: 1. Incidental findings. Nothing acute is appreciated on two-view left hip exam. Diagnostic code #2
[2018-11-18] MEDS: Saccharomyces Boulardii (Probiotic) 250 MG Cap PO SCH (20:04)
[2018-11-18] MEDS: Acetaminophen 325 MG Tab PO PRN (20:06)
[2018-11-18] MEDS: Albuterol/Ipratropium 3.0-0.5 MG/3 ML Neb Soln NEB PRN (22:59)
[2018-11-19] MEDS: Acetaminophen 325 MG Tab PO PRN ×2 (03:40→17:49)
[2018-11-19] MEDS: Levothyroxine 50 MCG Tab PO SCH (05:22)
[2018-11-19] MEDS: Pantoprazole 40 MG Vial IVPUSH SCH ×3 (07:47→08:15)
[2018-11-19] MEDS: Betamethasone Dipropionate/Clotrimazole 0.05-1% Crm 15 GM Tube TOP SCH ×3 (07:57→20:01)
[2018-11-19] MEDS: Saccharomyces Boulardii (Probiotic) 250 MG Cap PO SCH ×2 (08:03→20:02)
[2018-11-19] MEDS: Aspirin 81 MG Tab.EC PO SCH (08:04)
[2018-11-19] MEDS: NIFEdipine 30 MG Tab.ER PO SCH (08:04)
[2018-11-19] MEDS: Doxazosin 2 MG Tab PO SCH ×2 (08:04→20:01)
[2018-11-19] MEDS: Atenolol 25 MG Tab PO SCH (08:04)
[2018-11-19] MEDS: Hydrochlorothiazide 25 MG Tab PO SCH (08:05)
[2018-11-19] MEDS: MOMETASONE FUROATE TOP SCH (08:15)
[2018-11-19] MEDS: cefTRIAXone 1 GM in Sodium Chloride 0.9% 100 ML IV SCH (08:15)
[2018-11-19] MEDS ORDERED: Magnesium Sulfate/Water 4 GM in Premix Bag 1 BAG IV ONE (09:30)
[2018-11-19] MEDS ORDERED: 50% Dextrose in Water 50 ML SDV IV PRN (09:48)
[2018-11-19] MEDS ORDERED: Hydrochlorothiazide 25 MG Tab PO ONE (11:25)
--- NOTE | 2018-11-19 11:35 | PCM.PN ---
- General Info Date of Service: 11/19/18 Admission Dx/Problem (Free Text): Admission Diagnosis/Problem Admission Diagnosis/Problem Small bowel obstruction Subjective Update: In to see Elizabet with Dr. Morrison. She has no current complaints other than that she is tired. Nursing reports she was up most of the night. She has been quite confused and many medications have been discontinued. She has also had some urinary retention but is now voiding. Will start flomax BID. Nursing will obtain a post void residual on her. When asked where she is right now she reports a hospital in [place]. Nursing reports confusion has been slowly improving. She does have a UTI per her UA and rocephin has been started. SBO has completely resolved. Magnesium was again low and was supplemented. Functional Status: Reports: Pain Controlled, Tolerating Diet, Ambulating, Urinating. Denies: New Symptoms - Review of Systems General: Reports: Weakness, Fatigue. Denies: Fever, Malaise, Chills HEENT: Reports: No Symptoms. Denies: Headaches, Sore Throat Pulmonary: Reports: No Symptoms. Denies: Shortness of Breath, Pleuritic Chest Pain, Wheezing Cardiovascular: Denies: Chest Pain, Palpitations, Dyspnea on Exertion, Lightheadedness Gastrointestinal: Reports: No Symptoms. Denies: Abdominal Pain, Constipation, Diarrhea, Nausea, Vomiting Genitourinary: Reports: Retention. Denies: Pain Musculoskeletal: Reports: No Symptoms Skin: Reports: No Symptoms. Denies: Cyanosis Neurological: Reports: Confusion, Difficulty Walking, Weakness, Gait Disturbance. Denies: Numbness, Tingling, Trouble Speaking, Change in Speech Psychiatric: Reports: No Symptoms - Patient Data Vitals - Most Recent: Last Vital Signs Temp 98.4 F 11/19/18 07:44 Pulse 76 11/19/18 08:04 Resp 16 11/19/18 07:44 BP 143/62 H 11/19/18 08:04 Pulse Ox 95 11/19/18 07:44 Weight - Most Recent: 171 lb 11.2 oz I&O - Last 24 Hours: Intake & Output 11/18/18 11/19/18 11/19/18 22:59 06:59 14:59 Intake Total 1670 400 120 Output Total 1000 250 Balance 670 150 120 Lab Results Last 24 Hours: Laboratory Results - last 24 hr 11/18/18 11/19/18 11/19/18 Range/Units 11:55 05:25 05:25 WBC 7.35 (3.98-10.04) K/mm3 RBC 3.07 L (3.98-5.22) M/mm3 Hgb 9.3 L (11.2-15.7) gm/L Hct 28.8 L (34.1-44.9) % MCV 93.8 (79.4-94.8) fl MCH 30.3 (25.6-32.2) pg MCHC 32.3 (32.2-35.5) g/dl RDW Std Deviation 47.6 H (36.4-46.3) fL Plt Count 192 (182-369) K/mm3 MPV 9.8 (9.4-12.3) fl Neut % (Auto) 69.4 (34.0-71.1) % Lymph % (Auto) 17.7 L (19.3-51.7) % [place] % (Auto) 9.4 (4.7-12.5) % Eos % (Auto) 2.9 (0.7-5.8) Baso % (Auto) 0.5 (0.1-1.2) % Neut # (Auto) 5.10 (1.56-6.13) K/mm3 Lymph # (Auto) 1.30 (1.18-3.74) K/mm3 [place] # (Auto) 0.69 H (0.24-0.36) K/mm3 Eos # (Auto) 0.21 (0.04-0.36) K/mm3 Baso # (Auto) 0.04 (0.01-0.08) K/mm3 Sodium 138 (136-145) mEq/L Potassium 3.6 (3.5-5.1) mEq/L Chloride 103 (98-107) mEq/L Carbon Dioxide 25 (21-32) mEq/L Anion Gap 13.6 (5-15) BUN 22 H (7-18) mg/dL Creatinine 1.0 (0.55-1.02) mg/dL Est Cr Clr Drug Dosing 30.16 mL/min Estimated GFR (MDRD) 52 (>60) mL/min BUN/Creatinine Ratio 22.0 H (14-18) Glucose 121 H (83-115) mg/dL Calcium 8.5 (8.5-10.1) mg/dL Magnesium 1.5 L (1.8-2.4) mg/dl C-Reactive Protein 1.7 H* (<1.0) mg/dL Urine Color Yellow (Yellow) Urine Appearance Slt cloudy H (Clear) Urine pH 6.0 (5.0-8.0) Ur Specific [place] 1.020 (1.005-1.030) Urine Protein 1+ H (Negative) Urine Glucose (UA) Negative (Negative) Urine Ketones Negative (Negative) Urine Occult Blood 1+ H (Negative) Urine Nitrite Positive H (Negative) Urine Bilirubin Negative (Negative) Urine Urobilinogen 0.2 (0.2-1.0) Ur Leukocyte Esterase 2+ H (Negative) Urine RBC 5-10 H (0-5) /hpf Urine WBC 50-75 H (0-5) /hpf Urine WBC Clumps Few (NOT SEEN) /hpf Ur Epithelial Cells 0-5 (0-5) /hpf Urine Bacteria Moderate H (FEW) /hpf Urine Mucus Few (FEW) /hpf Chris Results Last 24 Hours: Microbiology 11/16/18 18:34 Urine Culture - Preliminary Urine, Voided Gram Negative Rods Med Orders - Current: Current Medications Acetaminophen (Tylenol) 650 mg PO Q4H PRN PRN Reason: Pain/Fever Last Admin: 11/19/18 03:40 Dose: 650 mg Albuterol/Ipratropium (Duoneb 3.0-0.5 Mg/3 Ml) 3 ml NEB Q4HRRT PRN PRN Reason: Dyspnea Last Admin: 11/18/18 22:59 Dose: 3 ml Aspirin (Halfprin) 81 mg PO DAILY [facility] Last Admin: 11/19/18 08:04 Dose: 81 mg Atenolol (Tenormin) 25 mg PO DAILY [facility] Last Admin: 11/19/18 08:04 Dose: 25 mg Benazepril HCl (Lotensin) 20 mg PO BID [facility] Last Admin: 11/19/18 08:03 Dose: 20 mg Betamethasone/Clotrimazole (Lotrisone) 0 gm TOP BID [facility] Last Admin: 11/19/18 08:14 Dose: Not Given Dextrose/Water (Dextrose 50% In Water) 50 ml IV ASDIRECTED PRN PRN Reason: Hypoglycemia Doxazosin Mesylate (Cardura) 1 mg PO BID [facility] Last Admin: 11/19/18 08:04 Dose: 1 mg Famotidine (Pepcid) 20 mg PO DAILY [facility] Flunisolide (Nasalide Nasal [place]) 0 ml NASBOTH BID [facility] Last Admin: 11/19/18 08:15 Dose: Not Given Hydralazine HCl (Apresoline) 10 mg IVPUSH Q6H PRN PRN Reason: Hypertension Last Admin: 11/18/18 14:59 Dose: 10 mg Hydrochlorothiazide (Hydrochlorothiazide) 50 mg PO DAILY [facility] Hydromorphone HCl (Dilaudid) 0.5 mg IVPUSH Q2H PRN PRN Reason: Pain (severe 7-10) Ceftriaxone Sodium 1 gm/ (Sodium Chloride) 100 mls @ 200 mls/hr IV Q24H [facility] Last Admin: 11/19/18 08:15 Dose: 200 mls/hr Magnesium Sulfate 4 gm/ Premix 50 mls @ 12.5 mls/hr IV ONETIME ONE Stop: 11/19/18 13:29 Last Admin: 11/19/18 08:45 Dose: 12.5 mls/hr Levothyroxine Sodium (Synthroid) 50 mcg PO ACBREAKFAST [facility] Last Admin: 11/19/18 05:22 Dose: 50 mcg Magnesium Sulfate (Pharmacy To Dose - Magnesium Replacement) 1 dose .XX ASDIRECTED [facility] Metoprolol Tartrate (Lopressor) 5 mg IVPUSH Q4H PRN PRN Reason: Tachycardia Nifedipine (Procardia Xl) 90 mg PO DAILY [facility] Last Admin: 11/19/18 08:04 Dose: 90 mg Ondansetron HCl (Zofran) 4 mg IV Q6H PRN PRN Reason: Nausea/Vomiting Mometasone Furoate [ Elocon] Patient's Own Med 0 each TOP DAILY [facility] Last Admin: 11/19/18 08:15 Dose: Not Given Pramoxine Hcl [Sarna Sensitive] Patients Own Med 0 each TOP Q2H PRN PRN Reason: Rash Potassium Chloride (Pharmacy To Dose - Potassium Replacement) 1 dose .XX ASDIRECTED [facility] Saccharomyces Boulardii (Florastor) 250 mg PO BID [facility] Last Admin: 11/19/18 08:03 Dose: 250 mg Sodium Chloride (Saline Flush) 10 ml FLUSH ASDIRECTED PRN PRN Reason: Keep Vein Open Last Admin: 11/16/18 03:02 Dose: 10 ml Tamsulosin HCl (Flomax) 0.4 mg PO BIDPC [facility] Discontinued Medications Dextrose/Water (Dextrose 50% In Water) 50 ml IVPUSH ASDIRECTED PRN PRN Reason: Hypoglycemia Fluticasone Propionate (Flonase) 0 gm NASBOTH BID [facility] Last Admin: 11/17/18 14:05 Dose: Not Given Gabapentin (Neurontin) 300 mg PO BEDTIME [facility] Last Admin: 11/16/18 22:02 Dose: 300 mg Gabapentin (Neurontin) 300 mg PO BEDTIME [facility] Hydrochlorothiazide (Hydrochlorothiazide) 25 mg PO DAILY [facility] Last Admin: 11/19/18 08:05 Dose: 25 mg Hydrochlorothiazide (Hydrochlorothiazide) 25 mg PO ONETIME ONE Stop: 11/19/18 11:26 Hydromorphone HCl (Dilaudid) 0.5 mg IVPUSH ONETIME ONE Stop: 11/16/18 02:41 Last Admin: 11/16/18 03:01 Dose: 0.5 mg Hydromorphone HCl (Dilaudid) 0.25 mg IVPUSH ONETIME ONE Stop: 11/16/18 14:28 Last Admin: 11/16/18 14:49 Dose: 0.25 mg Sodium Chloride (Normal Saline) 1,000 mls @ 125 mls/hr IV ASDIRECTED [facility] Last Admin: 11/16/18 10:11 Dose: 125 mls/hr Sodium Chloride (Normal Saline) 500 mls @ 1,000 mls/hr IV .BOLUS ONE Stop: 11/16/18 04:31 Last Admin: 11/16/18 04:06 Dose: 1,000 mls/hr Potassium Chloride/Dextrose/Sod Cl (D5 Ns With 40 Meq Kcl) 1,000 mls @ 125 mls/ hr IV ASDIRECTED [facility] Last Admin: 11/17/18 03:48 Dose: 125 mls/hr Magnesium Sulfate/Dextrose 1 (gm/ Premix) 100 mls @ 100 mls/hr IV ONETIME ONE Stop: 11/16/18 19:22 Last Admin: 11/16/18 19:07 Dose: 100 mls/hr Sodium Chloride (Normal Saline) 1,000 mls @ 125 mls/hr IV ASDIRECTED [facility] Last Admin: 11/18/18 07:37 Dose: 125 mls/hr Ceftriaxone Sodium 1 gm/ (Sodium Chloride) 100 mls @ 200 mls/hr IV ONETIME ONE Stop: 11/18/18 09:46 Last Admin: 11/18/18 09:39 Dose: 200 mls/hr Insulin Human Lispro (Humalog) 0 unit SUBCUT QIDACANDBED [facility]; Protocol Insulin Human Lispro (Humalog) 0 unit SUBCUT Q6H [facility]; Protocol Last Admin: 11/17/18 05:31 Dose: 2 unit Magnesium Oxide (Magnesium Oxide) 400 mg PO ONETIME ONE Stop: 11/18/18 10:46 Last Admin: 11/18/18 10:49 Dose: 400 mg Metoclopramide HCl (Reglan) 10 mg IVPUSH Q6H [facility] Last Admin: 11/17/18 14:05 Dose: Not Given Metoclopramide HCl (Reglan) 5 mg IVPUSH Q6H [facility] Stop: 11/18/18 05:31 Last Admin: 11/18/18 05:35 Dose: 5 mg Miscellaneous Information (Remove Patch) 0 ea TRDERM Q72H [facility] Ondansetron HCl (Zofran) 4 mg IVPUSH ONETIME ONE Stop: 11/16/18 02:40 Last Admin: 11/16/18 03:01 Dose: 4 mg Ondansetron HCl (Zofran) 4 mg IVPUSH ONETIME ONE Stop: 11/16/18 06:14 Last Admin: 11/16/18 06:20 Dose: 4 mg Pantoprazole Sodium (Protonix Iv) 40 mg IVPUSH DAILY [facility] Last Admin: 11/19/18 08:15 Dose: Not Given Scopolamine (Transderm-Scop) 1.5 mg TRDERM Q72H PRN PRN Reason: Nausea/Vomiting Last Admin: 11/16/18 14:52 Dose: 1.5 mg - Exam Quality Assessment: DVT Prophylaxis General: Alert, Cooperative, No Acute Distress HEENT: Pupils Equal, Pupils Reactive, EOMI, Mucous Membr. Moist/[place] Neck: Supple, Trachea Midline Lungs: Clear to Auscultation, Normal Respiratory Effort Cardiovascular: Regular Rate, Regular Rhythm GI/Abdominal Exam: Normal Bowel Sounds, Soft, Non-Tender, No Distention, No Abnormal Bruit (Female) Exam: Deferred Back Exam: Normal Inspection, Full Range of Motion Extremities: Normal Inspection, Normal Range of Motion, Non-Tender, No Pedal Edema, Normal Capillary Refill Peripheral Pulses: 2+: Radial (L), Radial (R), Dorsalis Pedis (L), Dorsalis Pedis (R) Skin: Warm, Dry, Intact Neurological: No New Focal Deficit Psy/Mental Status: Alert - Problem List & Annotations (1) Renal insufficiency SNOMED Code(s): 024492328, 545294193 Code(s): N28.9 - DISORDER OF KIDNEY AND URETER, UNSPECIFIED Status: Acute Priority: High Current Visit: Yes (2) Ventral hernia SNOMED Code(s): 876827578 Code(s): K43.9 - VENTRAL HERNIA WITHOUT OBSTRUCTION OR GANGRENE Status: Chronic Priority: High Current Visit: Yes Qualifiers: Obstruction and gangrene presence: without obstruction or gangrene Qualified Code(s): K43.9 - Ventral hernia without obstruction or gangrene (3) Small bowel obstruction SNOMED Code(s): 475887466 Code(s): K56.609 - UNSP INTESTNL OBST, UNSP TO PARTIAL VERSUS COMPLETE OBST Status: Resolved Priority: High Current Visit: Yes (4) Nausea SNOMED Code(s): 416877317 Code(s): R11.0 - NAUSEA Status: Resolved Priority: High Current Visit: Yes (5) Confusion SNOMED Code(s): 877679134 Code(s): R41.0 - DISORIENTATION, UNSPECIFIED Status: Acute Priority: High Current Visit: Yes (6) Urinary retention SNOMED Code(s): 106613910 Code(s): R33.9 - RETENTION OF URINE, UNSPECIFIED Status: Acute Priority: High Current Visit: Yes (7) UTI (urinary tract infection) SNOMED Code(s): 77994836 Code(s): N39.0 - URINARY TRACT INFECTION, SITE NOT SPECIFIED Status: Acute Priority: High Current Visit: Yes Qualifiers: Urinary tract infection type: acute cystitis Hematuria presence: without hematuria Qualified Code(s): N30.00 - Acute cystitis without hematuria (8) Hypomagnesemia SNOMED Code(s): 360839490 Code(s): E83.42 - HYPOMAGNESEMIA Status: Acute Priority: High Current Visit: Yes (9) Hypertension SNOMED Code(s): 80567885 Code(s): I10 - ESSENTIAL (PRIMARY) HYPERTENSION Status: Acute Priority: High Current Visit: Yes Qualifiers: Hypertension type: essential hypertension Qualified Code(s): I10 - Essential (primary) hypertension - Problem List Review Problem List Initiated/Reviewed/Updated: Yes - My Orders Last 24 Hours: My Active Orders 11/19/18 09:30 Magnesium Sulfate/Water [Magnesium Sulfate 4 GM in Water 50 ML] 4 gm Premix Bag 1 bag IV ONETIME 11/19/18 18:00 Tamsulosin [Flomax] 0.4 mg PO BIDPC 11/20/18 05:11 BASIC METABOLIC PANEL,BMP [CHEM] AM CBC WITH AUTO DIFF [HEME] AM CRP [C-REACTIVE PROTEIN] [CHEM] AM MAGNESIUM [CHEM] AM 11/20/18 09:00 hydroCHLOROthiazide 50 mg PO DAILY - Plan Plan:: I/P: Acute: AMS/Encephalopathy -Suspect Metabolic vs Medication Induced -She was just d/c'd on Reglan; not receiving narcotics or benzos -Initial UA not impressive; will repeat UA w/ Cx/Sx -Repeat UA: Cloudy, 1+ protein, 1+ occult blood, positive nitrite, 2+ leuk esterase, 5-10 RBCs, 50-75 WBCs, moderate bacteria -Go ahead and start 1 gram of Rocephin for presumptive UTI; d/c if repeat UA is clean -[employer] eval r/o undiagnosed cognitive impairment UTI -Initial UA sample not clean -Repeat UA: Cloudy, 1+ protein, 1+ occult blood, positive nitrite, 2+ leuk esterase, 5-10 RBCs, 50-75 WBCs, moderate bacteria -Has signs of confusion; CRP went up a bit -Go ahead and start antibiotic treatment - Rocephin -Urine culture: Gram negative rods so far -Start probiotic HTN -Carries a hx/o HTN -She has been NPO -Will resume home BP regimen and add PRN anti-hypertensive agent -She was getting IVF; will now d/c it -Increase HCTZ from 25mg daily to 50mg daily Hypomagnesemia -Mg 1.7-->1.5 -2/2 inadequate intake -Just started regular solid diet this AM -Replete and monitor Gait Instability -She has baseline peripheral neuropathy -Ambulates with 1 assist -PT/OT continue to re-evaluate Resolved: S/p Acute Renal Injury -At baseline -BUN 39; Creatinine 1.8-->1.3-->1.1 -eGFR 26-->39-->47 -Baseline creatinine appears to be 1.1-1.4 with eGFR of mid 30-40's -IV fluids as ordered; switched to D5NS plus KCl -2/2 to poor oral intake and GI loss from above -Avoid nephrotoxic agents if able S/p Permissive Hyperglycemia -2/2 D5W infusion from being NPO -Hopefully she will come off NPO status today awaiting approval from Dr. Carlson S/p Small Bowel Obstruction -Risk factor: hx/o intra-abdominal surgery, longstanding hx/o multiple hernias and chronic constipation -Reports right-sided abdominal pain near incisional hernia on right abdomen -Hospitalized for abdominal pain in past from 06/09/18-06/11/18 -Surgical consult but no surgical intervention warranted -Nausea and vomiting but no fever, chills, diarrhea, chest pain, resolved -WBC 9.68; CRP <0.2; 5.3, TSH pending -ED provider attempted to reduce hernia but was unable -CT scan in ED on 11/16/18: * 1. Dilated small bowel loops compatible with distal small bowel obstruction , etiology not identified findings most likely due to adhesion. * 2. Anterior abdominal wall hernia containing nondilated stomach antrum, second hernia more inferiorly to the left of midline which previously contained a loop of small bowel which contains fat on current study. 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 * 3. Hiatal hernia with gastroesophageal reflux of contrast. * 4. Incidental left-sided nonobstructing renal calculi. -NG tube placed in ED; may come off pending approval from Dr. Carlson -Now tolerating regular meal -Pain medications as ordered -Discontinued Reglan Q6Hr scheduled for prokinetic agent -Dr. Carlson, general surgeon, consulted in ED -Suggests continuing NG tube and IV hydration -Reports non-surgical at this time -Reports prior hernia is not cause of obstruction currently, likely cause in pelvis -Reports nursing should frequently check NG tube as it is prone to obstruction due to size used -IV fluids as ordered; will d/c -Anti-emetics covered by prokinetic agent as above added scopolamine patch x1 -Ambulate as many as as she can Chronic: Impaired vision Hard of hearing Chronic constipation Hiatal hernia Chronic back pain Osteoarthritis Hypothyroidism [place] Plan: She remains clinically stable; Continue to treat UTI Other orders as indicated above Routine AM labs Repeat UA Fall Precaution Resume PT/OT to re-assess for HSE CM/SW for discharge planning DVT prophylaxis: SCDs GI prophylaxis: PPI -> switch to H2 rolanda Encourage to ambulate as tolerated Code status: DNR/DNI; PCP: Dr. Ledesma LOS >96 HR pending treatment for UTI, continued confusion
[2018-11-19] MEDS ORDERED: Tamsulosin 0.4 MG Cap.ER PO ONE (13:45)
[2018-11-19] MEDS: Tamsulosin 0.4 MG Cap.ER PO SCH (17:50)
[2018-11-20] MEDS: Acetaminophen 325 MG Tab PO PRN (05:07)
[2018-11-20] MEDS: Levothyroxine 50 MCG Tab PO SCH (05:07)
--- NOTE | 2018-11-20 07:13 | PCM.PN ---
- General Info Date of Service: 11/20/18 Admission Dx/Problem (Free Text): Admission Diagnosis/Problem Admission Diagnosis/Problem Small bowel obstruction Subjective Update: In to see Elizabet. She is lying in bed. She is a bit wheezy so we will have respiratory give her nebulizer. She reports she is a little bit weak but otherwise no concerns. Her confusion is improving. We are at this time suggesting SNF rehabilitation stay. Dr. Morrison has been updating family. She' s been having around 250 mL urinary retention post void. This is an improvement from prior in her stay. Hopeful for discharge tomorrow pending continued improvement. Functional Status: Reports: Pain Controlled, Tolerating Diet, Ambulating, Urinating. Denies: New Symptoms - Review of Systems General: Reports: Weakness. Denies: Fever, Fatigue, Malaise, Chills HEENT: Reports: No Symptoms. Denies: Headaches, Sore Throat Pulmonary: Reports: Wheezing. Denies: Shortness of Breath, Pleuritic Chest Pain , Cough Cardiovascular: Reports: Edema. Denies: Chest Pain, Palpitations, Dyspnea on Exertion Gastrointestinal: Reports: No Symptoms. Denies: Abdominal Pain, Constipation, Diarrhea, Nausea, Vomiting Genitourinary: Reports: No Symptoms Musculoskeletal: Reports: Other (Reports general whole body myalgia) Skin: Reports: No Symptoms. Denies: Cyanosis Neurological: Reports: Confusion (improving ), Weakness. Denies: Numbness, Pre- Existing Deficit, Seizure, Tingling, Trouble Speaking, Difficulty Walking, Change in Speech, Gait Disturbance Psychiatric: Reports: No Symptoms - Patient Data Vitals - Most Recent: Last Vital Signs Temp 99.0 F 11/20/18 04:07 Pulse 84 11/20/18 04:07 Resp 20 11/20/18 04:07 BP 131/80 11/20/18 04:25 Pulse Ox 95 11/20/18 04:07 Weight - Most Recent: 169 lb 14.4 oz I&O - Last 24 Hours: Intake & Output 11/19/18 11/20/18 11/20/18 22:59 06:59 14:59 Intake Total 970 300 Output Total 500 1750 Balance 470 -1450 Lab Results Last 24 Hours: Laboratory Results - last 24 hr 11/20/18 11/20/18 Range/Units 05:32 05:32 WBC 6.25 (3.98-10.04) K/mm3 RBC 3.29 L (3.98-5.22) M/mm3 Hgb 10.0 L (11.2-15.7) gm/L Hct 30.3 L (34.1-44.9) % MCV 92.1 (79.4-94.8) fl MCH 30.4 (25.6-32.2) pg MCHC 33.0 (32.2-35.5) g/dl RDW Std Deviation 46.1 (36.4-46.3) fL Plt Count 221 (182-369) K/mm3 MPV 9.9 (9.4-12.3) fl Neut % (Auto) 60.3 (34.0-71.1) % Lymph % (Auto) 24.2 (19.3-51.7) % Kerr % (Auto) 8.0 (4.7-12.5) % Eos % (Auto) 6.7 H (0.7-5.8) Baso % (Auto) 0.3 (0.1-1.2) % Neut # (Auto) 3.77 (1.56-6.13) K/mm3 Lymph # (Auto) 1.51 (1.18-3.74) K/mm3 Kerr # (Auto) 0.50 H (0.24-0.36) K/mm3 Eos # (Auto) 0.42 H (0.04-0.36) K/mm3 Baso # (Auto) 0.02 (0.01-0.08) K/mm3 Sodium 137 (136-145) mEq/L Potassium 3.5 (3.5-5.1) mEq/L Chloride 100 (98-107) mEq/L Carbon Dioxide 26 (21-32) mEq/L Anion Gap 14.5 (5-15) BUN 13 (7-18) mg/dL Creatinine 1.0 (0.55-1.02) mg/dL Est Cr Clr Drug Dosing 30.16 mL/min Estimated GFR (MDRD) 52 (>60) mL/min BUN/Creatinine Ratio 13.0 L (14-18) Glucose 128 H (83-115) mg/dL Calcium 8.5 (8.5-10.1) mg/dL Magnesium 1.5 L (1.8-2.4) mg/dl C-Reactive Protein 1.1 H* (<1.0) mg/dL Chris Results Last 24 Hours: Microbiology 11/16/18 18:34 Urine Culture - Preliminary Urine, Voided Gram Negative Rods Med Orders - Current: Current Medications Acetaminophen (Tylenol) 650 mg PO Q4H PRN PRN Reason: Pain/Fever Last Admin: 11/20/18 05:07 Dose: 650 mg Albuterol/Ipratropium (Duoneb 3.0-0.5 Mg/3 Ml) 3 ml NEB Q4HRRT PRN PRN Reason: Dyspnea Last Admin: 11/18/18 22:59 Dose: 3 ml Aspirin (Halfprin) 81 mg PO DAILY ON LICENSE OF [facility] Last Admin: 11/19/18 08:04 Dose: 81 mg Atenolol (Tenormin) 25 mg PO DAILY ON LICENSE OF [facility] Last Admin: 11/19/18 08:04 Dose: 25 mg Benazepril HCl (Lotensin) 20 mg PO BID ON LICENSE OF [facility] Last Admin: 11/19/18 20:02 Dose: 20 mg Betamethasone/Clotrimazole (Lotrisone) 0 gm TOP BID ON LICENSE OF [facility] Last Admin: 11/19/18 20:01 Dose: 1 applic Dextrose/Water (Dextrose 50% In Water) 50 ml IV ASDIRECTED PRN PRN Reason: Hypoglycemia Doxazosin Mesylate (Cardura) 1 mg PO BID ON LICENSE OF [facility] Last Admin: 11/19/18 20:01 Dose: 1 mg Famotidine (Pepcid) 20 mg PO DAILY ON LICENSE OF [facility] Flunisolide (Nasalide Nasal [place]) 0 ml NASBOTH BID ON LICENSE OF [facility] Last Admin: 11/19/18 20:00 Dose: 2 sprays Hydralazine HCl (Apresoline) 10 mg IVPUSH Q6H PRN PRN Reason: Hypertension Last Admin: 11/18/18 14:59 Dose: 10 mg Hydrochlorothiazide (Hydrochlorothiazide) 50 mg PO DAILY ON LICENSE OF [facility] Hydromorphone HCl (Dilaudid) 0.5 mg IVPUSH Q2H PRN PRN Reason: Pain (severe 7-10) Ceftriaxone Sodium 1 gm/ (Sodium Chloride) 100 mls @ 200 mls/hr IV Q24H ON LICENSE OF [facility] Last Admin: 11/19/18 08:15 Dose: 200 mls/hr Levothyroxine Sodium (Synthroid) 50 mcg PO ACBREAKFAST ON LICENSE OF [facility] Last Admin: 11/20/18 05:07 Dose: 50 mcg Magnesium Sulfate (Pharmacy To Dose - Magnesium Replacement) 1 dose .XX ASDIRECTED ON LICENSE OF [facility] Metoprolol Tartrate (Lopressor) 5 mg IVPUSH Q4H PRN PRN Reason: Tachycardia Nifedipine (Procardia Xl) 90 mg PO DAILY ON LICENSE OF [facility] Last Admin: 11/19/18 08:04 Dose: 90 mg Ondansetron HCl (Zofran) 4 mg IV Q6H PRN PRN Reason: Nausea/Vomiting Mometasone Furoate [ Elocon] Patient's Own Med 0 each TOP DAILY ON LICENSE OF [facility] Last Admin: 11/19/18 08:15 Dose: Not Given Pramoxine Hcl [Sarna Sensitive] Patients Own Med 0 each TOP Q2H PRN PRN Reason: Rash Potassium Chloride (Pharmacy To Dose - Potassium Replacement) 1 dose .XX ASDIRECTED ON LICENSE OF [facility] Saccharomyces Boulardii (Florastor) 250 mg PO BID ON LICENSE OF [facility] Last Admin: 11/19/18 20:02 Dose: 250 mg Sodium Chloride (Saline Flush) 10 ml FLUSH ASDIRECTED PRN PRN Reason: Keep Vein Open Last Admin: 11/16/18 03:02 Dose: 10 ml Tamsulosin HCl (Flomax) 0.4 mg PO BIDPC ON LICENSE OF [facility] Last Admin: 11/19/18 17:50 Dose: 0.4 mg Discontinued Medications Dextrose/Water (Dextrose 50% In Water) 50 ml IVPUSH ASDIRECTED PRN PRN Reason: Hypoglycemia Fluticasone Propionate (Flonase) 0 gm NASBOTH BID ON LICENSE OF [facility] Last Admin: 11/17/18 14:05 Dose: Not Given Gabapentin (Neurontin) 300 mg PO BEDTIME ON LICENSE OF [facility] Last Admin: 11/16/18 22:02 Dose: 300 mg Gabapentin (Neurontin) 300 mg PO BEDTIME ON LICENSE OF [facility] Hydrochlorothiazide (Hydrochlorothiazide) 25 mg PO DAILY ON LICENSE OF [facility] Last Admin: 11/19/18 08:05 Dose: 25 mg Hydrochlorothiazide (Hydrochlorothiazide) 25 mg PO ONETIME ONE Stop: 11/19/18 11:26 Last Admin: 11/19/18 11:54 Dose: 25 mg Hydromorphone HCl (Dilaudid) 0.5 mg IVPUSH ONETIME ONE Stop: 11/16/18 02:41 Last Admin: 11/16/18 03:01 Dose: 0.5 mg Hydromorphone HCl (Dilaudid) 0.25 mg IVPUSH ONETIME ONE Stop: 11/16/18 14:28 Last Admin: 11/16/18 14:49 Dose: 0.25 mg Sodium Chloride (Normal Saline) 1,000 mls @ 125 mls/hr IV ASDIRECTED ON LICENSE OF [facility] Last Admin: 11/16/18 10:11 Dose: 125 mls/hr Sodium Chloride (Normal Saline) 500 mls @ 1,000 mls/hr IV .BOLUS ONE Stop: 11/16/18 04:31 Last Admin: 11/16/18 04:06 Dose: 1,000 mls/hr Potassium Chloride/Dextrose/Sod Cl (D5 Ns With 40 Meq Kcl) 1,000 mls @ 125 mls/ hr IV ASDIRECTED ON LICENSE OF [facility] Last Admin: 11/17/18 03:48 Dose: 125 mls/hr Magnesium Sulfate/Dextrose 1 (gm/ Premix) 100 mls @ 100 mls/hr IV ONETIME ONE Stop: 11/16/18 19:22 Last Admin: 11/16/18 19:07 Dose: 100 mls/hr Sodium Chloride (Normal Saline) 1,000 mls @ 125 mls/hr IV ASDIRECTED ON LICENSE OF [facility] Last Admin: 11/18/18 07:37 Dose: 125 mls/hr Ceftriaxone Sodium 1 gm/ (Sodium Chloride) 100 mls @ 200 mls/hr IV ONETIME ONE Stop: 11/18/18 09:46 Last Admin: 11/18/18 09:39 Dose: 200 mls/hr Magnesium Sulfate 4 gm/ Premix 50 mls @ 12.5 mls/hr IV ONETIME ONE Stop: 11/19/18 13:29 Last Admin: 11/19/18 08:45 Dose: 12.5 mls/hr Insulin Human Lispro (Humalog) 0 unit SUBCUT QIDACANDBED ON LICENSE OF [facility]; Protocol Insulin Human Lispro (Humalog) 0 unit SUBCUT Q6H ON LICENSE OF [facility]; Protocol Last Admin: 11/17/18 05:31 Dose: 2 unit Magnesium Oxide (Magnesium Oxide) 400 mg PO ONETIME ONE Stop: 11/18/18 10:46 Last Admin: 11/18/18 10:49 Dose: 400 mg Metoclopramide HCl (Reglan) 10 mg IVPUSH Q6H ON LICENSE OF [facility] Last Admin: 11/17/18 14:05 Dose: Not Given Metoclopramide HCl (Reglan) 5 mg IVPUSH Q6H ON LICENSE OF [facility] Stop: 11/18/18 05:31 Last Admin: 11/18/18 05:35 Dose: 5 mg Miscellaneous Information (Remove Patch) 0 ea TRDERM Q72H ON LICENSE OF [facility] Ondansetron HCl (Zofran) 4 mg IVPUSH ONETIME ONE Stop: 11/16/18 02:40 Last Admin: 11/16/18 03:01 Dose: 4 mg Ondansetron HCl (Zofran) 4 mg IVPUSH ONETIME ONE Stop: 11/16/18 06:14 Last Admin: 11/16/18 06:20 Dose: 4 mg Pantoprazole Sodium (Protonix Iv) 40 mg IVPUSH DAILY ON LICENSE OF [facility] Last Admin: 11/19/18 08:15 Dose: Not Given Scopolamine (Transderm-Scop) 1.5 mg TRDERM Q72H PRN PRN Reason: Nausea/Vomiting Last Admin: 11/16/18 14:52 Dose: 1.5 mg Tamsulosin HCl (Flomax) 0.4 mg PO ONETIME ONE Stop: 11/19/18 13:46 Last Admin: 11/19/18 14:03 Dose: 0.4 mg - Exam Quality Assessment: DVT Prophylaxis General: Alert, Oriented (mostly ), Cooperative, No Acute Distress HEENT: Pupils Equal, Pupils Reactive, EOMI, Mucous Membr. Moist/[place] Neck: Supple, Trachea Midline Lungs: Normal Respiratory Effort, Decreased Breath Sounds, Wheezing (R>L) Cardiovascular: Regular Rate, Regular Rhythm GI/Abdominal Exam: Normal Bowel Sounds, Soft, Non-Tender, No Distention, No Abnormal Bruit (Female) Exam: Deferred Back Exam: Normal Inspection, Full Range of Motion Extremities: Normal Inspection, Normal Range of Motion, Normal Capillary Refill , Pedal Edema (1+) Peripheral Pulses: 2+: Radial (L), Radial (R), Dorsalis Pedis (L), Dorsalis Pedis (R) Skin: Warm, Dry, Intact Neurological: No New Focal Deficit Psy/Mental Status: Alert, Normal Affect, Normal Mood - Problem List & Annotations (1) Renal insufficiency SNOMED Code(s): 804010957, 157022611 Code(s): N28.9 - DISORDER OF KIDNEY AND URETER, UNSPECIFIED Status: Acute Priority: High Current Visit: Yes (2) Ventral hernia SNOMED Code(s): 773182801 Code(s): K43.9 - VENTRAL HERNIA WITHOUT OBSTRUCTION OR GANGRENE Status: Chronic Priority: High Current Visit: Yes Qualifiers: Obstruction and gangrene presence: without obstruction or gangrene Qualified Code(s): K43.9 - Ventral hernia without obstruction or gangrene (3) Small bowel obstruction SNOMED Code(s): 145145661 Code(s): K56.609 - UNSP INTESTNL OBST, UNSP TO PARTIAL VERSUS COMPLETE OBST Status: Resolved Priority: High Current Visit: Yes (4) Nausea SNOMED Code(s): 102557605 Code(s): R11.0 - NAUSEA Status: Resolved Priority: High Current Visit: Yes (5) Confusion SNOMED Code(s): 322379651 Code(s): R41.0 - DISORIENTATION, UNSPECIFIED Status: Acute Priority: High Current Visit: Yes (6) Urinary retention SNOMED Code(s): 760708168 Code(s): R33.9 - RETENTION OF URINE, UNSPECIFIED Status: Acute Priority: High Current Visit: Yes (7) UTI (urinary tract infection) SNOMED Code(s): 64793306 Code(s): N39.0 - URINARY TRACT INFECTION, SITE NOT SPECIFIED Status: Acute Priority: High Current Visit: Yes Qualifiers: Urinary tract infection type: acute cystitis Hematuria presence: without hematuria Qualified Code(s): N30.00 - Acute cystitis without hematuria (8) Hypomagnesemia SNOMED Code(s): 727175433 Code(s): E83.42 - HYPOMAGNESEMIA Status: Acute Priority: High Current Visit: Yes (9) Hypertension SNOMED Code(s): 69854851 Code(s): I10 - ESSENTIAL (PRIMARY) HYPERTENSION Status: Acute Priority: High Current Visit: Yes Qualifiers: Hypertension type: essential hypertension Qualified Code(s): I10 - Essential (primary) hypertension - Problem List Review Problem List Initiated/Reviewed/Updated: Yes - My Orders Last 24 Hours: My Active Orders 11/19/18 18:00 Tamsulosin [Flomax] 0.4 mg PO BIDPC 11/20/18 09:00 hydroCHLOROthiazide 50 mg PO DAILY - Plan Plan:: I/P: Acute: AMS/Encephalopathy, improving -Suspect Metabolic vs Medication Induced -She was just d/c'd on Reglan; not receiving narcotics or benzos -Initial UA not impressive; will repeat UA w/ Cx/Sx -Repeat UA: Cloudy, 1+ protein, 1+ occult blood, positive nitrite, 2+ leuk esterase, 5-10 RBCs, 50-75 WBCs, moderate bacteria -Go ahead and start 1 gram of Rocephin for presumptive UTI; d/c if repeat UA is clean -SILK FINISHER eval r/o undiagnosed cognitive impairment UTI -Initial UA sample not clean -Repeat UA: Cloudy, 1+ protein, 1+ occult blood, positive nitrite, 2+ leuk esterase, 5-10 RBCs, 50-75 WBCs, moderate bacteria -Has signs of confusion; CRP went up a bit; Continues to have no leukocytosis -Go ahead and start antibiotic treatment - Rocephin -Urine culture: [place] sensitive E. Coli -Start probiotic Hypomagnesemia -Mg 1.7-->1.5-->1.5 -2/2 inadequate intake -Just started regular solid diet this AM -Replete and monitor Gait Instability -She has baseline peripheral neuropathy -Ambulates with 1 assist -PT/OT continue to re-evaluate Urinary retention -Nursing noted difficulty with urination and significant urinary retention -Medications reviewed and all possible offending agents discontinued if able -Flomx 0.4mg BID started -Retention improved to around 250mL post-void -Will need urology consult after discharge Resolved: S/P HTN -Carries a hx/o HTN -She has been NPO -Will resume home BP regimen and add PRN anti-hypertensive agent -She was getting IVF; will now d/c it -Increase HCTZ from 25mg daily to 50mg daily S/p Acute Renal Injury -At baseline -BUN 39; Creatinine 1.8-->1.3-->1.1 -eGFR 26-->39-->47 -Baseline creatinine appears to be 1.1-1.4 with eGFR of mid 30-40's -IV fluids as ordered; switched to D5NS plus KCl -2/2 to poor oral intake and GI loss from above -Avoid nephrotoxic agents if able S/p Permissive Hyperglycemia -2/2 D5W infusion from being NPO -Hopefully she will come off NPO status today awaiting approval from Dr. Carlson S/p Small Bowel Obstruction -Risk factor: hx/o intra-abdominal surgery, longstanding hx/o multiple hernias and chronic constipation -Reports right-sided abdominal pain near incisional hernia on right abdomen -Hospitalized for abdominal pain in past from 06/09/18-06/11/18 -Surgical consult but no surgical intervention warranted -Nausea and vomiting but no fever, chills, diarrhea, chest pain, resolved -WBC 9.68; CRP <0.2; 5.3, TSH pending -ED provider attempted to reduce hernia but was unable -CT scan in ED on 11/16/18: * 1. Dilated small bowel loops compatible with distal small bowel obstruction , etiology not identified findings most likely due to adhesion. * 2. Anterior abdominal wall hernia containing nondilated stomach antrum, second hernia more inferiorly to the left of midline which previously contained a loop of small bowel which contains fat on current study. 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 * 3. Hiatal hernia with gastroesophageal reflux of contrast. * 4. Incidental left-sided nonobstructing renal calculi. -NG tube placed in ED; may come off pending approval from Dr. Carlson -Now tolerating regular meal -Pain medications as ordered -Discontinued Reglan Q6Hr scheduled for prokinetic agent -Dr. Carlson, general surgeon, consulted in ED -Suggests continuing NG tube and IV hydration -Reports non-surgical at this time -Reports prior hernia is not cause of obstruction currently, likely cause in pelvis -Reports nursing should frequently check NG tube as it is prone to obstruction due to size used -IV fluids as ordered; will d/c -Anti-emetics covered by prokinetic agent as above added scopolamine patch x1 -Ambulate as many as as she can Chronic: Impaired vision Hard of hearing Chronic constipation Hiatal hernia Chronic back pain Osteoarthritis Hypothyroidism U[place] Plan: She remains clinically stable; Continue to treat UTI Other orders as indicated above Routine AM labs Repeat UA Fall Precaution Resume PT/OT to re-assess for HSE CM/SW for discharge planning DVT prophylaxis: SCDs GI prophylaxis: PPI -> switch to H2 rolanda Encourage to ambulate as tolerated Code status: DNR/DNI; PCP: Dr. Ledesma LOS >96 HR pending treatment for UTI, continued confusion
[2018-11-20] MEDS ORDERED: Magnesium Sulfate/Water 4 GM in Premix Bag 1 BAG IV ONE (07:45)
[2018-11-20] MEDS: Atenolol 25 MG Tab PO SCH (08:18)
[2018-11-20] MEDS: Hydrochlorothiazide 25 MG Tab PO SCH (08:18)
[2018-11-20] MEDS: Saccharomyces Boulardii (Probiotic) 250 MG Cap PO SCH ×2 (08:19→20:25)
[2018-11-20] MEDS: Tamsulosin 0.4 MG Cap.ER PO SCH ×2 (08:19→17:13)
[2018-11-20] MEDS: Aspirin 81 MG Tab.EC PO SCH (08:19)
[2018-11-20] MEDS: Doxazosin 2 MG Tab PO SCH ×2 (08:20→20:25)
[2018-11-20] MEDS: Famotidine 20 MG Tab PO SCH (08:20)
[2018-11-20] MEDS: NIFEdipine 30 MG Tab.ER PO SCH (08:20)
[2018-11-20] MEDS: cefTRIAXone 1 GM in Sodium Chloride 0.9% 100 ML IV SCH (08:21)
[2018-11-20] MEDS: Betamethasone Dipropionate/Clotrimazole 0.05-1% Crm 15 GM Tube TOP SCH ×2 (08:22→20:26)
[2018-11-20] MEDS: MOMETASONE FUROATE TOP SCH (08:25)
[2018-11-20] MEDS: Albuterol/Ipratropium 3.0-0.5 MG/3 ML Neb Soln NEB PRN (10:54)
[2018-11-21] MEDS: Levothyroxine 50 MCG Tab PO SCH (05:30)
[2018-11-21 07:39] VITALS: BP 130/78
--- NOTE | 2018-11-21 08:24 | PCM.DCSUM1 ---
Discharge Summary - Hospital Course HPI Initial Comments: Elizabet Chavarrai is an 88 yo female who presents to our ED on 11/16/18 in the very second butler hours with a abdominal pain in the right side along with nausea and vomiting. She has known incisional hernia in the right abdomen has had it for years. She is admitted for abdominal pain here on 06/09/18 through and the pain was thought to be secondary to her hernia. She has reportedly refused surgery in the past. Dr. Ruiz, general surgeon, did see her then and did not have a surgical interventions to offer her. It was not incarcerated. Prior to arrival to the ED today she woke up with 7 out of 10 pain at her hernia site and thinks the pain has moved his had nausea but no chills or fever. No diarrhea or dysuria, cough, chest pain, or shortness of breath. In the ED temperature was 97 Fahrenheit. Pulse 62. Respirations 16. Blood pressure 142/62. Pulse ox 95%. Labs are obtained: WBC is 9.68. Hemoglobin 12.8. Hematocrit 38.0. She is normocytic. Pulses are good 266,000. Neutrophils are elevated at 77.5%. Sodium was 139. Potassium 4.0. Chloride 101. Carbon monoxide 27. Anion gap 15. BUN is 39. Creatinine high at 1.8. GFR is 26. Glucose is 195. Calcium 9.4. AST is 19, ALT 22, alkaline phosphatase 74. Protein 7.2. Albumin 3.7. Lipase is 195. Given 0.5 a lot of for pain and 500 mL fluid bolus. She is also given 4 mg Zofran and started on fluids. Dr. Uriarte and his attempt to reduce her hernia was unable to. CT scan with oral contrast was obtained and interpreted by Dr. Richey as "1. Dilated small bowel loops compatible with distal small bowel obstruction, etiology not identified findings most likely due to adhesion. 2. Anterior abdominal wall hernia containing nondilated stomach atrium, second hernia more inferiorly to the left of midline which previously containing a loop of small bowel which contains fat on current study. 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 3. Hiatal hernia with gastroesophageal reflux of contrast. 4. Incidental left-sided nonobstructing renal calculi." NG tube was then placed in the ED. She carries a history of impaired vision, hard of hearing, hypertension, chronic constipation, hiatal hernia, chronic back pain, osteoarthritis, hypothyroidism, urticaria. She was never a smoker. Code status is DNR/DNI. Her PCP is Dr. Ledesma. Diagnosis: Stroke: No - Discharge Data Discharge Date: 11/21/18 (Admit date: 11/16/18) Discharge Disposition: DC/Tfer to [facility] 03 Condition: Good - Discharge Diagnosis/Problem(s) (1) Renal insufficiency SNOMED Code(s): 365852795, 476258283 ICD Code: N28.9 - DISORDER OF KIDNEY AND URETER, UNSPECIFIED Status: Acute Priority: High (2) Ventral hernia SNOMED Code(s): 157923055 ICD Code: K43.9 - VENTRAL HERNIA WITHOUT OBSTRUCTION OR GANGRENE Status: Chronic Priority: High Qualifiers: Qualified Code(s): K43.9 - Ventral hernia without obstruction or gangrene (3) Small bowel obstruction SNOMED Code(s): 983923410 ICD Code: K56.609 - UNSP INTESTNL OBST, UNSP TO PARTIAL VERSUS COMPLETE OBST Status: Resolved Priority: High (4) Nausea SNOMED Code(s): 733603279 ICD Code: R11.0 - NAUSEA Status: Resolved Priority: High (5) Confusion SNOMED Code(s): 570469839 ICD Code: R41.0 - DISORIENTATION, UNSPECIFIED Status: Acute Priority: High (6) Urinary retention SNOMED Code(s): 868351343 ICD Code: R33.9 - RETENTION OF URINE, UNSPECIFIED Status: Acute Priority : High (7) UTI (urinary tract infection) SNOMED Code(s): 39589259 ICD Code: N39.0 - URINARY TRACT INFECTION, SITE NOT SPECIFIED Status: Acute Priority: High Qualifiers: Qualified Code(s): N30.00 - Acute cystitis without hematuria (8) Hypomagnesemia SNOMED Code(s): 856773700 ICD Code: E83.42 - HYPOMAGNESEMIA Status: Acute Priority: High (9) Hypertension SNOMED Code(s): 17369312 ICD Code: I10 - ESSENTIAL (PRIMARY) HYPERTENSION Status: Resolved Priority: High Qualifiers: Qualified Code(s): I10 - Essential (primary) hypertension - Patient Summary/Data Consults: Consultations 11/16/18 08:39 Consult to Case Management/Bus Escort [CONS] Routine Consult to Spiritual Care [CONS] Routine OT Evaluation and Treatment [CONS] Routine PT Evaluation and Treatment [CONS] Routine 11/16/18 11:21 Consult to Physician [CONS] Routine 11/18/18 11:45 Consult to Speech Language Pathology [MEDICAL ASSISTING INSTRUCTOR Evaluation and Treatment] [CONS] Routine Labs Pending at D/C: None Recommended Follow-up Testing/Procedures: Follow-up with PCP within 7-10 days of discharge Follow-up with urology regarding urine retention. [facility] to schedule this. Continue PT/OT/MEDICAL ASSISTING INSTRUCTOR at [facility] Hospital Course: I/P: Acute: AMS/Encephalopathy, improving -Suspect Metabolic vs Medication Induced -She was just d/c'd on Reglan; not receiving narcotics or benzos -Initial UA not impressive; will repeat UA w/ Cx/Sx -Repeat UA: Cloudy, 1+ protein, 1+ occult blood, positive nitrite, 2+ leuk esterase, 5-10 RBCs, 50-75 WBCs, moderate bacteria -Go ahead and start 1 gram of Rocephin for presumptive UTI; d/c if repeat UA is clean -MEDICAL ASSISTING INSTRUCTOR eval r/o undiagnosed cognitive impairment -> cognitive impairment confirmed Gait Instability -She has baseline peripheral neuropathy -Ambulates with 1 assist -PT/OT continue to re-evaluate Urinary retention -Nursing noted difficulty with urination and significant urinary retention -Medications reviewed and all possible offending agents discontinued if able -Flomx 0.4mg BID started -Retention improved to around 250mL post-void -Will need urology consult after discharge Resolved: S/P UTI -Initial UA sample not clean -Repeat UA: Cloudy, 1+ protein, 1+ occult blood, positive nitrite, 2+ leuk esterase, 5-10 RBCs, 50-75 WBCs, moderate bacteria -Has signs of confusion; CRP went up a bit; Continues to have no leukocytosis -Go ahead and start antibiotic treatment - Rocephin -Urine culture: Izaguirre sensitive E. Coli -Start probiotic -> completed -Completed treatment while here S/P Hypomagnesemia -Mg 1.7-->1.5-->1.5-->2.1 -2/2 inadequate intake -Just started regular solid diet this AM -Replete and monitor S/P HTN -Carries a hx/o HTN -She has been NPO -Will resume home BP regimen and add PRN anti-hypertensive agent -She was getting IVF; will now d/c it -Increase HCTZ from 25mg daily to 50mg daily S/p Acute Renal Injury -At baseline -BUN 39; Creatinine 1.8-->1.3-->1.1 -eGFR 26-->39-->47 -Baseline creatinine appears to be 1.1-1.4 with eGFR of mid 30-40's -IV fluids as ordered; switched to D5NS plus KCl -2/2 to poor oral intake and GI loss from above -Avoid nephrotoxic agents if able S/p Permissive Hyperglycemia -2/2 D5W infusion from being NPO -Hopefully she will come off NPO status today awaiting approval from Dr. Carlson S/p Small Bowel Obstruction -Risk factor: hx/o intra-abdominal surgery, longstanding hx/o multiple hernias and chronic constipation -Reports right-sided abdominal pain near incisional hernia on right abdomen -Hospitalized for abdominal pain in past from 06/09/18-06/11/18 -Surgical consult but no surgical intervention warranted -Nausea and vomiting but no fever, chills, diarrhea, chest pain, resolved -WBC 9.68; CRP <0.2; 5.3, TSH pending -ED provider attempted to reduce hernia but was unable -CT scan in ED on 11/16/18: * 1. Dilated small bowel loops compatible with distal small bowel obstruction , etiology not identified findings most likely due to adhesion. * 2. Anterior abdominal wall hernia containing nondilated stomach antrum, second hernia more inferiorly to the left of midline which previously contained a loop of small bowel which contains fat on current study. 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 * 3. Hiatal hernia with gastroesophageal reflux of contrast. * 4. Incidental left-sided nonobstructing renal calculi. -NG tube placed in ED; may come off pending approval from Dr. Carlson -Now tolerating regular meal -Pain medications as ordered -Discontinued Reglan Q6Hr scheduled for prokinetic agent -Dr. Carlson, general surgeon, consulted in ED -Suggests continuing NG tube and IV hydration -Reports non-surgical at this time -Reports prior hernia is not cause of obstruction currently, likely cause in pelvis -Reports nursing should frequently check NG tube as it is prone to obstruction due to size used -IV fluids as ordered; will d/c -Anti-emetics covered by prokinetic agent as above added scopolamine patch x1 -> discontinued -Ambulate as much as as she can Chronic: Impaired vision Hard of hearing Chronic constipation Hiatal hernia Chronic back pain Osteoarthritis Hypothyroidism Urticaria Plan: She remains clinically stable; Continue to treat UTI Other orders as indicated above Routine AM labs Repeat UA Fall Precaution Resume PT/OT to re-assess for HSE CM/SW for discharge planning DVT prophylaxis: SCDs GI prophylaxis: PPI -> switch to H2 rolanda Encourage to ambulate as tolerated Code status: DNR/DNI; PCP: Dr. Ledesma LOS >96 HR pending treatment for UTI, continued confusion Elizabet was admitted out of the emergency room to the floor for a small bowel obstruction. She does have a long-standing history of multiple hernias and it was originally thought this may be the cause. NG tube was placed in the ED with excellent response. Dr. Carlson, general surgeon, was consulted and recommended medical management. She did not think that any of the hernias were causing this obstruction as it appeared to be more in the pelvic region. CT scan was obtained as above. She is placed on Reglan for its prokinetic effects and made nothing by mouth. She had a rapid resolution of symptoms and began to have bowel movements. Reglan was discontinued and NG tube was pulled. Her diet was advanced without issues. Shortly thereafter she was noted to be increasingly confused and has some difficulties with ambulation. UA was obtained and showed a urinary tract infection. All medications which could possibly contribute to her altered mental status were stopped. Cultures grew out Escherichia coli which was pansensitive and she was treated with 3 days of Rocephin. This was discontinued at discharge as she had already completed treatment. It is felt she may have a underlying cognitive deficit and MEDICAL ASSISTING INSTRUCTOR was ordered for an evaluation which confirmed this. On admission she was noted to have some acute kidney injury and IV fluids were given. She had excellent response to this and return to baseline. Her blood sugars were noted to be elevated however this was likely due to the D5NS she was receiving while nothing by mouth and this did resolve as her SBO resolved. Her magnesium was low, likely secondary to minimal input, and this was supplemented. Throughout her stay she was noted by nursing to have significant urinary retention. Multiple bladder scans were performed confirming this. She was started on Flomax 0.4 mg twice a day. This will be continued at discharge. Her retention did improve however will she was still noted to have several bladder scans of 250 mL or less of postvoid residual. We are recommending she see a urologist for this in the future. Because of her overall health picture and weakness while here we discussed a SNF rehabilitation stay. Family felt this was a great option and patient was in agreement as well. She was discharged today to [facility]. She was discharged on Flomax as mentioned prior. Dr. Morrison did place restrictions on some of her medications and requested her blood pressure and heart rate be obtained prior to giving these. These included atenolol - hold if blood pressure is at or less than 100/60 mmHg heart rate is at or less than 60, Cardura/hold if blood pressure is at or less than 100/60, nifedipine/hold if blood pressure is at or less than 100/60, HCTZ/hold if blood pressure is at or less than 100/60. He also suggested meclizine be held for excessive sedation. Discussion was had over how some of her medications could be contributing to her increased confusion and this is supplemented the primary care provider can investigate further should it be warranted. It is recommended she continue PT/OT/MEDICAL ASSISTING INSTRUCTOR at discharge. She should follow-up with her primary care provider within 7-10 days of discharge and urology as instructed. She was instructed to return to the emergency room, a walk-in clinic, or contact her PCP should symptoms return or worsen. - Patient Instructions Diet: Usual Diet as Tolerated Activity: As Tolerated Driving: Do Not Drive Notify Provider of: Fever, Increased Pain, Nausea and/or Vomiting Other/Special Instructions: Follow-up with PCP within 7-10 days of discharge. Follow-up with urology as directed regarding urinary retention. Continue PT/OT/ MEDICAL ASSISTING INSTRUCTOR at SNF. Continue home medications as ordered. Take all new medications as directed. Should symptoms return or worsen, contact PCP, a walk-in clinic, or return to the ED. - Discharge Plan *PRESCRIPTION DRUG MONITORING PROGRAM REVIEWED*: No *COPY OF PRESCRIPTION DRUG MONITORING REPORT IN PATIENT VICTOR HUGO: No Prescriptions/Med Rec: Tamsulosin [Flomax] 0.4 mg PO BIDPC #30 cap.er Home Medications: Home Meds Aspirin [Halfprin] 81 mg PO DAILY 11/30/17 [History] Gabapentin [Neurontin] 300 mg PO BID 07/13/17 [History] Levothyroxine [Synthroid] 50 mcg PO ACBREAKFAST 07/13/17 [History] Sennosides/Docusate Sodium [Senna-Docusate Sodium] 2 tab PO BEDTIME PRN [History] Pantoprazole Sodium [Protonix] 20 mg PO DAILY 06/09/18 [History] Pramoxine HCl [Sarna Sensitive] 1 applic TOP Q2H PRN 11/16/18 [History] Acetaminophen 500 mg PO Q4H PRN #30 11/21/18 [Rx] Atenolol 25 mg PO DAILY #0 11/21/18 [Rx] Benazepril [Lotensin] 20 mg PO BID #0 11/21/18 [Rx] Clotrimazole/Betamethasone Dip [Lotrisone Cream] 1 applic TOP BID #0 11/21/18 [ Rx] Collagenase [Santyl Oint] 1 applic TOP Q2HR PRN #1 11/21/18 [Rx] Doxazosin [Cardura] 1 mg PO BID #0 11/21/18 [Rx] Ezetimibe 10 mg PO DAILY #0 11/21/18 [Rx] Fluticasone Propionate [Flonase] 50 mcg NASBOTH BID #0 11/21/18 [Rx] Meclizine [Antivert] 25 mg PO Q6H PRN #0 11/21/18 [Rx] Mometasone Furoate [Elocon] 1 applic TOP DAILY #0 11/21/18 [Rx] NIFEdipine [Adalat cc] 90 mg PO DAILY #0 11/21/18 [Rx] Tamsulosin [Flomax] 0.4 mg PO BIDPC #30 cap.er 11/21/18 [Rx] hydroCHLOROthiazide [Hydrochlorothiazide] 25 mg PO DAILY #0 11/21/18 [Rx] Oxygen Therapy Mode: Room Air Patient Handouts: Small Bowel Obstruction, [id number], Confusion, Hypomagnesemia, Urinary Tract Infection, Adult, Acute Urinary Retention, Female , [id number] Referrals: Jazmine Ledesma MD [Primary Care Provider] - 11/23/18 2:00 pm (Please follow-up with Dr. Jazmine Ledesma on November 23, at 2:00pm. ) - Discharge Summary/Plan Comment DC Time >30 min.: Yes (40 minutes ) - General Info Date of Service: 11/21/18 Admission Dx/Problem (Free Text: Admission Diagnosis/Problem Admission Diagnosis/Problem Small bowel obstruction Subjective Update: In to see Elizabet. Her niece is in the room. We discussed progress so far and discharge plan. Elizabet reports some mild congestion. She completed her UTI treatment while here. No patient, family, or nursing concerns. She will be discharged today. Functional Status: Reports: Pain Controlled, Tolerating Diet, Ambulating, Urinating. Denies: New Symptoms - Review of Systems General: Reports: Weakness (Improving ). Denies: Fever, Fatigue, Malaise HEENT: Reports: No Symptoms Pulmonary: Reports: No Symptoms, Cough (occasional ), Wheezing (occasional ). Denies: Shortness of Breath, Pleuritic Chest Pain, Sputum Cardiovascular: Reports: No Symptoms. Denies: Chest Pain, Palpitations, Dyspnea on Exertion, Edema Gastrointestinal: Reports: No Symptoms. Denies: Abdominal Pain, Constipation, Diarrhea, Nausea, Vomiting Genitourinary: Reports: No Symptoms. Denies: Pain Musculoskeletal: Reports: No Symptoms Skin: Reports: No Symptoms. Denies: Cyanosis Neurological: Reports: Confusion (improved ). Denies: Dizziness, Headache, Numbness, Seizure, Trouble Speaking, Difficulty Walking, Change in Speech Psychiatric: Reports: No Symptoms - Patient Data Vitals - Most Recent: Last Vital Signs Temp 98.8 F 11/21/18 07:35 Pulse 83 11/21/18 07:35 Resp 14 11/21/18 07:35 BP 130/78 11/21/18 07:35 Pulse Ox 94 L 11/21/18 07:39 Weight - Most Recent: 170 lb 3.2 oz I&O - Last 24 hours: Intake & Output 11/20/18 11/21/18 11/21/18 22:59 06:59 14:59 Intake Total 1420 300 Output Total 1100 1225 Balance 320 -925 Lab Results - Last 24 hrs: Laboratory Results - last 24 hr 11/21/18 11/21/18 Range/Units 07:21 07:21 WBC 6.68 (3.98-10.04) K/mm3 RBC 3.20 L (3.98-5.22) M/mm3 Hgb 9.8 L (11.2-15.7) gm/L Hct 29.7 L (34.1-44.9) % MCV 92.8 (79.4-94.8) fl MCH 30.6 (25.6-32.2) pg MCHC 33.0 (32.2-35.5) g/dl RDW Std Deviation 46.5 H (36.4-46.3) fL Plt Count 225 (182-369) K/mm3 MPV 9.2 L (9.4-12.3) fl Neut % (Auto) 62.8 (34.0-71.1) % Lymph % (Auto) 19.6 (19.3-51.7) % Gilchrist % (Auto) 9.3 (4.7-12.5) % Eos % (Auto) 7.6 H (0.7-5.8) Baso % (Auto) 0.4 (0.1-1.2) % Neut # (Auto) 4.19 (1.56-6.13) K/mm3 Lymph # (Auto) 1.31 (1.18-3.74) K/mm3 Gilchrist # (Auto) 0.62 H (0.24-0.36) K/mm3 Eos # (Auto) 0.51 H (0.04-0.36) K/mm3 Baso # (Auto) 0.03 (0.01-0.08) K/mm3 Sodium 138 (136-145) mEq/L Potassium 3.7 (3.5-5.1) mEq/L Chloride 102 (98-107) mEq/L Carbon Dioxide 27 (21-32) mEq/L Anion Gap 12.7 (5-15) BUN 15 (7-18) mg/dL Creatinine 0.9 (0.55-1.02) mg/dL Est Cr Clr Drug Dosing 33.52 mL/min Estimated GFR (MDRD) 59 (>60) mL/min BUN/Creatinine Ratio 16.7 (14-18) Glucose 125 H (83-115) mg/dL Calcium 8.3 L (8.5-10.1) mg/dL Magnesium 2.1 (1.8-2.4) mg/dl C-Reactive Protein 0.9 (<1.0) mg/dL DILCIA Results - Last 24 hrs: Microbiology 11/16/18 18:34 Urine Culture - Preliminary Urine, Voided Escherichia Coli Med Orders - Current: Current Medications Acetaminophen (Tylenol) 650 mg PO Q4H PRN PRN Reason: Pain/Fever Last Admin: 11/20/18 05:07 Dose: 650 mg Albuterol/Ipratropium (Duoneb 3.0-0.5 Mg/3 Ml) 3 ml NEB Q4HRRT PRN PRN Reason: Dyspnea Last Admin: 11/20/18 10:54 Dose: 3 ml Aspirin (Halfprin) 81 mg PO DAILY [facility] Last Admin: 11/20/18 08:19 Dose: 81 mg Atenolol (Tenormin) 25 mg PO DAILY [facility] Last Admin: 11/20/18 08:18 Dose: 25 mg Benazepril HCl (Lotensin) 20 mg PO BID [facility] Last Admin: 11/20/18 20:25 Dose: 20 mg Betamethasone/Clotrimazole (Lotrisone) 0 gm TOP BID [facility] Last Admin: 11/20/18 20:26 Dose: 1 applic Dextrose/Water (Dextrose 50% In Water) 50 ml IV ASDIRECTED PRN PRN Reason: Hypoglycemia Doxazosin Mesylate (Cardura) 1 mg PO BID [facility] Last Admin: 11/20/18 20:25 Dose: 1 mg Famotidine (Pepcid) 20 mg PO DAILY [facility] Last Admin: 11/20/18 08:20 Dose: 20 mg Flunisolide (Nasalide Nasal [place]) 0 ml NASBOTH BID [facility] Last Admin: 11/20/18 20:26 Dose: 2 sprays Hydralazine HCl (Apresoline) 10 mg IVPUSH Q6H PRN PRN Reason: Hypertension Last Admin: 11/18/18 14:59 Dose: 10 mg Hydrochlorothiazide (Hydrochlorothiazide) 50 mg PO DAILY [facility] Last Admin: 11/20/18 08:18 Dose: 50 mg Hydromorphone HCl (Dilaudid) 0.5 mg IVPUSH Q2H PRN PRN Reason: Pain (severe 7-10) Ceftriaxone Sodium 1 gm/ (Sodium Chloride) 100 mls @ 200 mls/hr IV Q24H [facility] Last Admin: 11/20/18 08:21 Dose: 200 mls/hr Levothyroxine Sodium (Synthroid) 50 mcg PO ACBREAKFAST [facility] Last Admin: 11/21/18 05:30 Dose: 50 mcg Magnesium Sulfate (Pharmacy To Dose - Magnesium Replacement) 1 dose .XX ASDIRECTED [facility] Metoprolol Tartrate (Lopressor) 5 mg IVPUSH Q4H PRN PRN Reason: Tachycardia Nifedipine (Procardia Xl) 90 mg PO DAILY [facility] Last Admin: 11/20/18 08:20 Dose: 90 mg Ondansetron HCl (Zofran) 4 mg IV Q6H PRN PRN Reason: Nausea/Vomiting Mometasone Furoate [ Elocon] Patient's Own Med 0 each TOP DAILY [facility] Last Admin: 11/20/18 08:25 Dose: 1 each Pramoxine Hcl [Sarna Sensitive] Patients Own Med 0 each TOP Q2H PRN PRN Reason: Rash Potassium Chloride (Pharmacy To Dose - Potassium Replacement) 1 dose .XX ASDIRECTED [facility] Saccharomyces Boulardii (Florastor) 250 mg PO BID [facility] Last Admin: 11/20/18 20:25 Dose: 250 mg Sodium Chloride (Saline Flush) 10 ml FLUSH ASDIRECTED PRN PRN Reason: Keep Vein Open Last Admin: 11/16/18 03:02 Dose: 10 ml Tamsulosin HCl (Flomax) 0.4 mg PO BIDPC [facility] Last Admin: 11/20/18 17:13 Dose: 0.4 mg Discontinued Medications Dextrose/Water (Dextrose 50% In Water) 50 ml IVPUSH ASDIRECTED PRN PRN Reason: Hypoglycemia Fluticasone Propionate (Flonase) 0 gm NASBOTH BID [facility] Last Admin: 11/17/18 14:05 Dose: Not Given Gabapentin (Neurontin) 300 mg PO BEDTIME [facility] Last Admin: 11/16/18 22:02 Dose: 300 mg Gabapentin (Neurontin) 300 mg PO BEDTIME [facility] Hydrochlorothiazide (Hydrochlorothiazide) 25 mg PO DAILY [facility] Last Admin: 11/19/18 08:05 Dose: 25 mg Hydrochlorothiazide (Hydrochlorothiazide) 25 mg PO ONETIME ONE Stop: 11/19/18 11:26 Last Admin: 11/19/18 11:54 Dose: 25 mg Hydromorphone HCl (Dilaudid) 0.5 mg IVPUSH ONETIME ONE Stop: 11/16/18 02:41 Last Admin: 11/16/18 03:01 Dose: 0.5 mg Hydromorphone HCl (Dilaudid) 0.25 mg IVPUSH ONETIME ONE Stop: 11/16/18 14:28 Last Admin: 11/16/18 14:49 Dose: 0.25 mg Sodium Chloride (Normal Saline) 1,000 mls @ 125 [facility] Admin: 11/16/18 10:11 Dose: 125 mls/hr Sodium Chloride (Normal Saline) 500 mls @ 1,000 mls/hr IV .BOLUS ONE Stop: 11/16/18 04:31 Last Admin: 11/16/18 04:06 Dose: 1,000 mls/hr Potassium Chloride/Dextrose/Sod Cl (D5 Ns With 40 Meq Kcl) 1,000 mls @ 125 mls/ [facility] Last Admin: 11/17/18 03:48 Dose: 125 mls/hr Magnesium Sulfate/Dextrose 1 (gm/ Premix) 100 mls @ 100 mls/hr IV ONETIME ONE Stop: 11/16/18 19:22 Last Admin: 11/16/18 19:07 Dose: 100 mls/hr Sodium Chloride (Normal Saline) 1,000 mls @ 125 mls/hr IV ASDIRECTED [facility] Last Admin: 11/18/18 07:37 Dose: 125 mls/hr Ceftriaxone Sodium 1 gm/ (Sodium Chloride) 100 mls @ 200 mls/hr IV ONETIME ONE Stop: 11/18/18 09:46 Last Admin: 11/18/18 09:39 Dose: 200 mls/hr Magnesium Sulfate 4 gm/ Premix 50 mls @ 12.5 mls/hr IV ONETIME ONE Stop: 11/19/18 13:29 Last Admin: 11/19/18 08:45 Dose: 12.5 mls/hr Magnesium Sulfate 4 gm/ Premix 50 mls @ 12.5 mls/hr IV ONETIME ONE Stop: 11/20/18 11:44 Last Admin: 11/20/18 08:17 Dose: 12.5 mls/hr Magnesium Sulfate/Dextrose 1 (gm/ Premix) 100 mls @ 100 mls/hr IV ONETIME ONE Stop: 11/20/18 12:59 Last Admin: 11/20/18 11:41 Dose: 100 mls/hr Insulin Human Lispro (Humalog) 0 unit SUBCUT QIDACANDBED [facility]; Protocol Insulin Human Lispro (Humalog) 0 unit SUBCUT Q6H [facility]; Protocol Last Admin: 11/17/18 05:31 Dose: 2 unit Magnesium Oxide (Magnesium Oxide) 400 mg PO ONETIME ONE Stop: 11/18/18 10:46 Last Admin: 11/18/18 10:49 Dose: 400 mg Metoclopramide HCl (Reglan) 10 mg IVPUSH Q6H [facility] Last Admin: 11/17/18 14:05 Dose: Not Given Metoclopramide HCl (Reglan) 5 mg IVPUSH Q6H [facility] Stop: 11/18/18 05:31 Last Admin: 11/18/18 05:35 Dose: 5 mg Miscellaneous Information (Remove Patch) 0 ea TRDERM Q72H [facility] Ondansetron HCl (Zofran) 4 mg IVPUSH ONETIME ONE Stop: 11/16/18 02:40 Last Admin: 11/16/18 03:01 Dose: 4 mg Ondansetron HCl (Zofran) 4 mg IVPUSH ONETIME ONE Stop: 11/16/18 06:14 Last Admin: 11/16/18 06:20 Dose: 4 mg Pantoprazole Sodium (Protonix Iv) 40 mg IVPUSH DAILY [facility] Last Admin: 11/19/18 08:15 Dose: Not Given Scopolamine (Transderm-Scop) 1.5 mg TRDERM Q72H PRN PRN Reason: Nausea/Vomiting Last Admin: 11/16/18 14:52 Dose: 1.5 mg Tamsulosin HCl (Flomax) 0.4 mg PO ONETIME ONE Stop: 11/19/18 13:46 Last Admin: 11/19/18 14:03 Dose: 0.4 mg - Exam Quality Assessment: Reports: DVT Prophylaxis. Denies: Supplemental Oxygen, Urine Catheter General: Reports: Alert, Cooperative, No Acute Distress. Denies: Oriented ( somewhat orientated ) HEENT: Reports: Pupils Equal, Pupils Reactive, EOMI, Mucous Membr. Moist/[place] Neck: Reports: Supple, Trachea Midline, No JVD Lungs: Reports: Clear to Auscultation, Normal Respiratory Effort, Decreased Breath Sounds. Denies: Rhonchi, Wheezing Cardiovascular: Reports: Regular Rate, Regular Rhythm GI/Abdominal Exam: Normal Bowel Sounds, Soft, Non-Tender, No Organomegaly, No Distention (Female) Exam: Deferred Rectal (Female) Exam: Deferred Back Exam: Reports: Normal Inspection, Full Range of Motion Extremities: Normal Inspection, Normal Range of Motion, Non-Tender, Normal Capillary Refill, Pedal Edema (Trace to 1+ ) Skin: Reports: Warm, Dry, Intact Neurological: Reports: No New Focal Deficit Psy/Mental Status: Reports: Alert, Normal Affect, Normal Mood
[2018-11-21] MEDS: NIFEdipine 30 MG Tab.ER PO SCH (08:26)
[2018-11-21] MEDS: Tamsulosin 0.4 MG Cap.ER PO SCH (08:26)
[2018-11-21] MEDS: Saccharomyces Boulardii (Probiotic) 250 MG Cap PO SCH (08:26)
[2018-11-21] MEDS: Famotidine 20 MG Tab PO SCH (08:26)
[2018-11-21] MEDS: Hydrochlorothiazide 25 MG Tab PO SCH (08:26)
[2018-11-21] MEDS: Aspirin 81 MG Tab.EC PO SCH (08:27)
[2018-11-21] MEDS: Doxazosin 2 MG Tab PO SCH (08:27)
[2018-11-21] MEDS: Atenolol 25 MG Tab PO SCH (08:27)
[2018-11-21] MEDS: cefTRIAXone 1 GM in Sodium Chloride 0.9% 100 ML IV SCH (08:27)
[2018-11-21] MEDS: Betamethasone Dipropionate/Clotrimazole 0.05-1% Crm 15 GM Tube TOP SCH (08:41)
[2018-11-21] MEDS: MOMETASONE FUROATE TOP SCH (08:43)
[2018-11-21] MEDS ORDERED: Gabapentin 300 MG Cap PO SCH (11:26)
== END 2018-11-21 10:00 | DRG 388 ==
LOC: JD.ED 02:20 → JD.MS 06:45
PROVIDERS: ADMIT Internal Medicine; ATTEND Internal Medicine
PROC: 0D9670Z Drainage of Stomach with Drainage Device, Via Natural or Artificial Opening (ICD-10-PCS; principal; 2018-11-16)
DX: K56.50 Intestinal adhesions [bands], unspecified as to partial versus complete obstruction (principal); G92 Toxic encephalopathy; N28.9 Disorder of kidney and ureter, unspecified; N17.9 Acute kidney failure, unspecified; N39.0 Urinary tract infection, site not specified; K43.9 Ventral hernia without obstruction or gangrene; I10 Essential (primary) hypertension; K59.09 Other constipation; E03.9 Hypothyroidism, unspecified; R33.9 Retention of urine, unspecified; E83.42 Hypomagnesemia; G62.9 Polyneuropathy, unspecified; B96.20 Unspecified Escherichia coli [E. coli] as the cause of diseases classified elsewhere; T45.0X5A Adverse effect of antiallergic and antiemetic drugs, initial encounter; M54.9 Dorsalgia, unspecified; R10.9 Unspecified abdominal pain; R50.9 Fever, unspecified; R11.2 Nausea with vomiting, unspecified; G89.29 Other chronic pain; M19.90 Unspecified osteoarthritis, unspecified site; H54.7 Unspecified visual loss; H91.90 Unspecified hearing loss, unspecified ear; L50.9 Urticaria, unspecified; Z90.710 Acquired absence of both cervix and uterus; Z90.49 Acquired absence of other specified parts of digestive tract; Z88.8 Allergy status to other drugs, medicaments and biological substances; Z79.82 Long term (current) use of aspirin; Z79.890 Hormone replacement therapy; Z79.899 Other long term (current) drug therapy; Z96.659 Presence of unspecified artificial knee joint; Z66 Do not resuscitate
CPT/HCPCS: 36415; 74176; 80053; 83690; 84439; 85025; 86140; 96361; 96374; 96375; 96376; 99285; J1170; J2405 ×2; J7040 ×2; 51701; 51798; 72100; 72100-26; 73502-26-LT; 73502-LT; 80048; 81001; 82962; 83735; 84443; 87086; 87088; 87186; 94640; 94760; 96125-GN; 97110-GO; 97110-GP; 97116-GP; 97162-GP; 97165-GO; 97530-GO; 99284; A9270-GY; C9113; J0360; J0696; J1815-GY; J2765; J3475; J3480; J7030; J7620-GY

== ENCOUNTER 2019-01-25 12:36 | Emergency (ER) | payer MEDICARE, BC ==
[2019-01-25 12:51] VITALS: BP 186/88
[2019-01-25] MEDS ORDERED: Sodium Chloride 0.9% 10 ML Syringe FLUSH PRN (13:29)
[2019-01-25] MEDS ORDERED: Sodium Chloride 0.9% 1,000 ML IV ONE (13:30)
[2019-01-25] MEDS ORDERED: Ketorolac 30 MG/ML SDV IVPUSH ONE (13:36)
--- NOTE | 2019-01-25 13:39 | EDM.PDOC ---
ED HPI GENERAL MEDICAL PROBLEM - General Chief Complaint: General Stated Complaint: CHEST PAIN, HEADACHE Time Seen by Provider: 01/25/19 12:57 Source of Information: Reports: Patient, RN Notes Reviewed History Limitations: Reports: No Limitations - History of Present Illness INITIAL COMMENTS - FREE TEXT/NARRATIVE: Patient is a 88-year-old female who presents to the ED for the evaluation of an overall feeling of not feeling well. She notes generalized aches, and states that she just feels crummy. She notes this has been going on for the last several days. She denies any new medications or new diets. The patient does not think she has had any chest pain, shortness of breath, cough, recent fevers or chills or abdominal pain. The daughter present in the room notes that she has had issues with UTIs in the past and also constipation. She states that she was recently hospitalized and after she was discharged was sent to [facility] for rehabilitation, she did well and was discharged from [facility] to home, and she is now again in the ER for feelings of being unwell. She denies any urinary frequency, urgency or dysuria at this time. She does complain of a mild headache. - Related Data Allergies Allergy/AdvReac Type Severity Reaction Status Date / Time amlodipine Allergy Rash Verified 01/25/19 12:51 codeine Allergy Cannot Verified 01/25/19 12:51 Remember diphenhydramine Allergy Rash Verified 01/25/19 12:51 [From Benadryl] rosuvastatin [From Crestor] Allergy Rash Verified 01/25/19 12:51 spironolactone Allergy Rash Verified 01/25/19 12:51 [From Aldactone] ELBERT Inhibitors AdvReac Vomiting Verified 01/25/19 12:51 tramadol AdvReac Nausea Verified 01/25/19 12:51 hydralazine base Allergy Rash Uncoded 11/20/18 17:13 tape Allergy Rash Uncoded 05/07/18 01:59 Conrast Dye AdvReac Dizziness Uncoded 11/21/18 07:55 Home Meds: Home Meds Aspirin [Halfprin] 81 mg PO DAILY 07/13/17 [History] Gabapentin [Neurontin] 200 mg PO BID 07/13/17 [History] Levothyroxine [Synthroid] 50 mcg PO ACBREAKFAST 07/13/17 [History] Sennosides/Docusate Sodium [Senna-Docusate Sodium] 2 tab PO BEDTIME PRN [History] Pantoprazole Sodium [Protonix] 20 mg PO DAILY 06/09/18 [History] Pramoxine HCl [Sarna Sensitive] 1 applic TOP Q2H PRN 11/16/18 [History] Acetaminophen 500 mg PO Q4H PRN #30 11/21/18 [Rx] Atenolol 25 mg PO DAILY #0 11/21/18 [Rx] Benazepril [Lotensin] 20 mg PO BID #0 11/21/18 [Rx] Clotrimazole/Betamethasone Dip [Lotrisone Cream] 1 applic TOP BID #0 11/21/18 [ Rx] Collagenase [Santyl Oint] 1 applic TOP Q2HR PRN #1 11/21/18 [Rx] Doxazosin [Cardura] 1 mg PO BID #0 11/21/18 [Rx] Ezetimibe 10 mg PO DAILY #0 11/21/18 [Rx] Fluticasone Propionate [Flonase] 50 mcg NASBOTH BID #0 11/21/18 [Rx] Tamsulosin [Flomax] 0.4 mg PO BIDPC #30 cap.er 11/21/18 [Rx] hydroCHLOROthiazide [Hydrochlorothiazide] 25 mg PO DAILY #0 11/21/18 [Rx] NIFEdipine [Nifedical XL] 90 mg PO DAILY 01/25/19 [History] levoFLOXacin [Levaquin] 250 mg PO DAILY #5 tab 01/25/19 [Rx] Past Medical History HEENT History: Reports: Impaired Vision Other HEENT History: Glasses. 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 - Infectious Disease History Infectious Disease History: Reports: Chicken Pox - Past Surgical History GI Surgical History: Reports: Appendectomy, Cholecystectomy Female Surgical History: Reports: Hysterectomy, Salpingo-Oophorectomy Musculoskeletal Surgical History: Reports: Knee Replacement, Shoulder Surgery Social & Family History - Family History Family Medical History: Noncontributory Cardiac: Denies: Heart Failure, [place] Endocrine/Metabolic: Reports: Diabetes, type II - Tobacco Use Smoking Status *Q: Never Smoker - Caffeine Use Caffeine Use: Reports: Coffee Other Caffeine Use: 1cup/day Caffeine Use Comment: 1 cup of coffee per day, soda- rarely - Recreational Drug Use Recreational Drug Use: No - Living Situation & Occupation Living situation: Reports: , Alone Occupation: Retired ED ROS GENERAL - Review of Systems Review Of Systems: See Below Constitutional: Reports: Malaise, Fatigue. Denies: Fever, Chills HEENT: Reports: No Symptoms Respiratory: Reports: No Symptoms Cardiovascular: Reports: No Symptoms Endocrine: Reports: No Symptoms GI/Abdominal: Reports: Abdominal Pain (generalized). Denies: Diarrhea, Nausea, Vomiting : Denies: Dysuria, Frequency, Urgency Musculoskeletal: Reports: No Symptoms Skin: Reports: No Symptoms Neurological: Reports: Headache Psychiatric: Reports: No Symptoms Hematologic/Lymphatic: Reports: No Symptoms Immunologic: Reports: No Symptoms ED EXAM, GENERAL - Physical Exam Exam: See Below Exam Limited By: No Limitations General Appearance: Alert, WD/WN, No Apparent Distress Eye Exam: Bilateral Eye: EOMI, Normal Inspection, PERRL Ears: Normal External Exam Nose: Normal Inspection Throat/Mouth: Normal Inspection, Normal Voice Head: Atraumatic, Normocephalic Neck: Normal Inspection, Supple, Non-Tender, Full Range of Motion Respiratory/Chest: No Respiratory Distress, Lungs Clear, Normal Breath Sounds, No Accessory Muscle Use, Chest Non-Tender Cardiovascular: Normal Peripheral Pulses, Regular Rate, Rhythm, No Murmur GI/Abdominal: Normal Bowel Sounds, Soft, No Distention, No Mass, Tender ( suprapubic tenderness) Extremities: Normal Inspection, Normal Capillary Refill Neurological: Alert, Oriented, Normal Cognition, No Motor/Sensory Deficits Psychiatric: Normal Affect, Normal Mood Skin Exam: Warm, Dry, Intact, Normal Color, No Rash EKG INTERPRETATION EKG Date: 01/25/19 Time: 13:54 Rhythm: NSR Rate (Beats/Min): 76 [place]: Normal P-Wave: Present QRS: Normal ST-T: Normal QT: Normal EKG Interpretation Comments: Reviewed by myself and Dr. Hardy Course - Vital Signs Last Recorded V/S: Last Vital Signs Temp 97.9 F 01/25/19 12:47 Pulse 89 01/25/19 12:47 Resp 22 H 01/25/19 12:47 BP 186/88 H 01/25/19 12:47 Pulse Ox 98 01/25/19 12:47 - Orders/Labs/Meds Orders: Active Orders 24 hr Category Date Time Status EKG Documentation Completion [RC] STAT Care 01/25/19 13:28 Active Peripheral IV Care [RC] . DIRECTED Care 01/25/19 13:30 Active Chest 1V Frontal [CR] Stat Exams 01/25/19 13:28 Taken CULTURE URINE [RM] Routine Lab 01/25/19 13:45 Received Sodium Chloride 0.9% [Normal Saline] 1,000 ml Med 01/25/19 13:30 Active IV ASDIRECTED Sodium Chloride 0.9% [Saline Flush] Med 01/25/19 13:29 Active 10 ml FLUSH ASDIRECTED PRN Peripheral IV Insertion Adult [OM.PC] Routine Oth 01/25/19 13:30 Ordered Medication Orders Sodium Chloride (Normal Saline) 1,000 mls @ 125 mls/hr IV ASDIRECTED ONE Stop: 01/25/19 21:29 Last Admin: 01/25/19 13:50 Dose: 125 mls/hr Sodium Chloride (Saline Flush) 10 ml FLUSH ASDIRECTED PRN PRN Reason: Keep Vein Open Last Admin: 01/25/19 13:39 Dose: 10 ml Labs: Laboratory Tests 01/25/19 01/25/19 01/25/19 Range/Units 13:38 13:38 13:45 WBC 6.16 (3.98-10.04) K/mm3 RBC 3.97 L (3.98-5.22) M/mm3 Hgb 11.8 D (11.2-15.7) gm/L Hct 36.4 (34.1-44.9) % MCV 91.7 (79.4-94.8) fl MCH 29.7 (25.6-32.2) pg MCHC 32.4 (32.2-35.5) g/dl RDW Std Deviation 47.2 H (36.4-46.3) fL Plt Count 278 (182-369) K/mm3 MPV 9.2 L (9.4-12.3) fl Neutrophils % (Manual) 65 H (40-60) % Band Neutrophils % 0 (0-10) % Lymphocytes % (Manual) 22 (20-40) % Atypical Lymphs % 0 % Monocytes % (Manual) 1 L (2-10) % Eosinophils % (Manual) 9 H (0.7-5.8) % Basophils % (Manual) 3 H (0.1-1.2) Platelet Estimate Adequate RBC Morph Comment Normal Sodium 137 (136-145) mEq/L Potassium 4.0 (3.5-5.1) mEq/L Chloride 101 (98-107) mEq/L Carbon Dioxide 26 (21-32) mEq/L Anion Gap 14.0 (5-15) BUN 30 H (7-18) mg/dL Creatinine 1.1 H (0.55-1.02) mg/dL Est Cr Clr Drug Dosing 27.42 mL/min Estimated GFR (MDRD) 47 (>60) mL/min BUN/Creatinine Ratio 27.3 H (14-18) Glucose 107 (83-115) mg/dL Calcium 9.4 (8.5-10.1) mg/dL Magnesium 1.7 L (1.8-2.4) mg/dl Total Bilirubin 0.4 (0.2-1.0) mg/dL AST 23 (15-37) U/L ALT 25 (14-59) U/L Alkaline Phosphatase 95 (46-116) U/L Troponin I < 0.017 (0.00-0.056) ng/mL Total Protein 7.8 (6.4-8.2) g/dl Albumin 4.0 (3.4-5.0) g/dl Globulin 3.8 gm/dL Albumin/Globulin Ratio 1.1 (1-2) Urine Color Yellow (Yellow) Urine Appearance Clear (Clear) Urine pH 7.0 (5.0-8.0) Ur Specific [place] 1.015 (1.005-1.030) Urine Protein Negative (Negative) Urine Glucose (UA) Negative (Negative) Urine Ketones Negative (Negative) Urine Occult Blood Negative (Negative) Urine Nitrite Positive H (Negative) Urine Bilirubin Negative (Negative) Urine Urobilinogen 0.2 (0.2-1.0) Ur Leukocyte Esterase 1+ H (Negative) Urine RBC 0-5 (0-5) /hpf Urine WBC 5-10 H (0-5) /hpf Ur Squamous Epith Cells 0-5 (0-5) /hpf Urine Bacteria Many H (FEW) /hpf Urine Mucus Not seen (FEW) /hpf Meds: Medications Generic Name Dose Route Start Last Admin Trade Name Maureen PRN Reason Stop Dose Admin Sodium Chloride 1,000 mls @ 125 mls/hr 01/25/19 13:30 01/25/19 13:50 Normal Saline IV 01/25/19 21:29 125 mls/hr ASDIRECTED ONE Administration Sodium Chloride 10 ml 01/25/19 13:29 01/25/19 13:39 Saline Flush FLUSH 10 ml ASDIRECTED PRN Administration Keep Vein Open Discontinued Medications Generic Name Dose Route Start Last Admin Trade Name Freq PRN Reason Stop Dose Admin Ceftriaxone Sodium 2 gm/ 100 mls @ 200 mls/hr 01/25/19 14:33 01/25/19 14:45 Sodium Chloride IV 01/25/19 15:02 200 mls/hr Q24H ONE Administration Ketorolac Tromethamine 30 mg 01/25/19 13:36 01/25/19 13:50 Toradol IVPUSH 01/25/19 13:37 30 mg ONETIME ONE Administration - Re-Assessments/Exams Free Text/Narrative Re-Assessment/Exam: 01/25/19 13:38 Patient presents to the ED for the general overall feeling of being unwell. Have ordered maintenance fluids, UA, CBC, CMP, chest x-ray, magnesium, EKG and troponin for further evaluation. The patient herself is a fairly poor historian and does not make any suggestions to one focal area at this time. 01/25/19 14:36 Patient's labs have returned, and are unremarkable except for her urinalysis. This was positive for UTI at this time. I have ordered Rocephin to be given in the ER, and we will provide the patient with oral antibiotics for home use. 01/25/19 15:20 Pt's IV antibiotics have finished, patient will be discharged home with prescription for antibiotics and general recommendations. Departure - Departure Time of Disposition: 15:21 Disposition: Home, Self-Care 01 Condition: Fair Clinical Impression: UTI (urinary tract infection) Qualifiers: Urinary tract infection type: acute cystitis Hematuria presence: without hematuria Qualified Code(s): N30.00 - Acute cystitis without hematuria - Discharge Information Prescriptions: levoFLOXacin [Levaquin] 250 mg PO DAILY #5 tab Instructions: Urine Culture and Sensitivity Testing, Urinary Tract Infection, Adult, [id number] Referrals: Jazmine Ledesma MD [Primary Care Provider] - Forms: ED Department Discharge Additional Instructions: You have been evaluated in the ED today for your general feelings of being unwell. Your workup in the ER today uncovered that you are suffering from urinary tract infection at this time. You have received IV fluids, and IV antibiotics to start your antibiotic course , you have been provided with a prescription for antibiotics. 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 Your urinalysis was sent for culture, you will be called and made notified if you should need a change in your antibiotics. Recommend that you follow up in clinic after your and antibiotics have been done to make sure that the infection has cleared from your system. Please return to the ED if your symptoms should change or worsen. - My Orders Last 24 Hours: My Active Orders 01/25/19 13:28 EKG Documentation Completion [RC] STAT Chest 1V Frontal [CR] Stat 01/25/19 13:29 Sodium Chloride 0.9% [Saline Flush] 10 ml FLUSH ASDIRECTED PRN 01/25/19 13:30 Peripheral IV Care [RC] . DIRECTED Sodium Chloride 0.9% [Normal Saline] 1,000 ml IV ASDIRECTED Peripheral IV Insertion Adult [OM.PC] Routine 01/25/19 13:45 CULTURE URINE [RM] Routine - Assessment/Plan Last 24 Hours: My Active Orders 01/25/19 13:28 EKG Documentation Completion [RC] STAT Chest 1V Frontal [CR] Stat 01/25/19 13:29 Sodium Chloride 0.9% [Saline Flush] 10 ml FLUSH ASDIRECTED PRN 01/25/19 13:30 Peripheral IV Care [RC] . DIRECTED Sodium Chloride 0.9% [Normal Saline] 1,000 ml IV ASDIRECTED Peripheral IV Insertion Adult [OM.PC] Routine 01/25/19 13:45 CULTURE URINE [RM] Routine
[2019-01-25] MEDS ORDERED: cefTRIAXone 2 GM in Sodium Chloride 0.9% 100 ML IV ONE (14:33)
--- NOTE | 2019-01-28 07:21 | CR ---
Chest: Portable view of the chest was obtained. Comparison: Prior chest x-ray of 11/16/18. Heart size is slightly enlarged. Tortuous thoracic aorta is seen. Lungs are clear with no acute parenchymal change. Degenerative change is noted within the left shoulder. Right shoulder prosthesis is seen. Impression: 1. Findings as noted above. Nothing acute is appreciated. Diagnostic code #2
== END 2019-01-25 15:35 | disposition home or self-care (01) ==
LOC: JD.ED 12:36
DX: N30.00 Acute cystitis without hematuria (principal); I10 Essential (primary) hypertension; E03.9 Hypothyroidism, unspecified; Z79.82 Long term (current) use of aspirin; Z79.899 Other long term (current) drug therapy; Z91.041 Radiographic dye allergy status
CPT/HCPCS: 36415; 71045; 80053; 81001; 83735; 84484; 85007; 85027; 87086; 93005; 96361; 96365; 96375; 99285; J0696; J1885; J7030; J7040; 87088; 87186; 93010; 99283

== ENCOUNTER 2019-01-27 19:39 | Emergency (ER) | payer MEDICARE, BC ==
[2019-01-27 19:49] VITALS: BP 167/82
--- NOTE | 2019-01-27 20:15 | EDM.PDOC ---
ED HPI GENERAL MEDICAL PROBLEM - General Chief Complaint: Genitourinary Problem Stated Complaint: UNABLE TO URINATE Time Seen by Provider: 01/27/19 19:47 Source of Information: Reports: Patient, Family History Limitations: Reports: No Limitations - History of Present Illness INITIAL COMMENTS - FREE TEXT/NARRATIVE: The patient was seen here on Monday with some nonspecific complaints. She was found to have a UTI. She was put on levaquin for 5 days. She now cannot urinate. That started today. She has had trouble with this in the past. She has no fever, chills, cough, chest, pain, shortness of breath, nausea or vomiting. She does have some abdominal pain and bloating. Onset: Gradual Duration: Hour(s): Location: Reports: Abdomen Quality: Reports: Sharp Severity: Moderate Improves with: Reports: None Worsens with: Reports: None Associated Symptoms: Denies: Chest Pain, Cough, Fever/Chills, Headaches, Nausea/ Vomiting, Shortness of Breath Abdomen Pain Score (Numeric/FACES): 6 - Related Data Allergies Allergy/AdvReac Type Severity Reaction Status Date / Time amlodipine Allergy Rash Verified 01/25/19 12:51 codeine Allergy Cannot Verified 01/25/19 12:51 Remember diphenhydramine Allergy Rash Verified 01/25/19 12:51 [From Benadryl] rosuvastatin [From Crestor] Allergy Rash Verified 01/25/19 12:51 spironolactone Allergy Rash Verified 01/25/19 12:51 [From Aldactone] ELBERT Inhibitors AdvReac Vomiting Verified 01/27/19 19:45 tramadol AdvReac Nausea Verified 01/25/19 12:51 hydralazine base Allergy Rash Uncoded 11/20/18 17:13 tape Allergy Rash Uncoded 05/07/18 01:59 Conrast Dye AdvReac Dizziness Uncoded 11/21/18 07:55 Home Meds: Home Meds Aspirin [Halfprin] 81 mg PO DAILY 07/13/17 [History] Gabapentin [Neurontin] 200 mg PO BID 07/13/17 [History] Levothyroxine [Synthroid] 50 mcg PO ACBREAKFAST 07/13/17 [History] Sennosides/Docusate Sodium [Senna-Docusate Sodium] 2 tab PO BEDTIME PRN [History] Pantoprazole Sodium [Protonix] 20 mg PO DAILY 06/09/18 [History] Pramoxine HCl [Sarna Sensitive] 1 applic TOP Q2H PRN 11/16/18 [History] Acetaminophen 500 mg PO Q4H PRN #30 11/21/18 [Rx] Atenolol 25 mg PO DAILY #0 11/21/18 [Rx] Benazepril [Lotensin] 20 mg PO BID #0 11/21/18 [Rx] Clotrimazole/Betamethasone Dip [Lotrisone Cream] 1 applic TOP BID #0 11/21/18 [ Rx] Collagenase [Santyl Oint] 1 applic TOP Q2HR PRN #1 11/21/18 [Rx] Doxazosin [Cardura] 1 mg PO BID #0 11/21/18 [Rx] Ezetimibe 10 mg PO DAILY #0 11/21/18 [Rx] Fluticasone Propionate [Flonase] 50 mcg NASBOTH BID #0 11/21/18 [Rx] Tamsulosin [Flomax] 0.4 mg PO BIDPC #30 cap.er 11/21/18 [Rx] hydroCHLOROthiazide [Hydrochlorothiazide] 25 mg PO DAILY #0 11/21/18 [Rx] NIFEdipine [Nifedical XL] 90 mg PO DAILY 01/25/19 [History] levoFLOXacin [Levaquin] 250 mg PO DAILY #5 tab 01/25/19 [Rx] Past Medical History HEENT History: Reports: Impaired Vision Other HEENT History: Glasses. 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 - Infectious Disease History Infectious Disease History: Reports: Chicken Pox - Past Surgical History GI Surgical History: Reports: Appendectomy, Cholecystectomy Female Surgical History: Reports: Hysterectomy, Salpingo-Oophorectomy Musculoskeletal Surgical History: Reports: Knee Replacement, Shoulder Surgery Social & Family History - Family History Family Medical History: Noncontributory Cardiac: Denies: Heart Failure, [place] Endocrine/Metabolic: Reports: Diabetes, type II - Tobacco Use Smoking Status *Q: Never Smoker - Caffeine Use Caffeine Use: Reports: Coffee Other Caffeine Use: 1cup/day Caffeine Use Comment: 1 cup of coffee per day, soda- rarely - Living Situation & Occupation Living situation: Reports: , Alone Occupation: Retired ED ROS GENERAL - Review of Systems Review Of Systems: See Below Constitutional: Reports: No Symptoms HEENT: Reports: No Symptoms Respiratory: Reports: No Symptoms Cardiovascular: Reports: No Symptoms Endocrine: Reports: No Symptoms GI/Abdominal: Reports: Abdominal Pain. Denies: Diarrhea, Nausea, Vomiting : Reports: Other (Cannot urinate) Musculoskeletal: Reports: No Symptoms Skin: Reports: No Symptoms ED EXAM, GI/ABD - Physical Exam Exam: See Below Exam Limited By: No Limitations General Appearance: Alert, No Apparent Distress Ears: Normal External Exam Nose: Normal Inspection Head: Atraumatic, Normocephalic Neck: Normal Inspection Respiratory/Chest: No Respiratory Distress, Lungs Clear, Normal Breath Sounds Cardiovascular: Regular Rate, Rhythm, No Edema, No Murmur GI/Abdominal Exam: Soft, No Organomegaly, No Mass, Tender (Mild to moderate tenderness to the lower abdomen and then distended) Course - Vital Signs Last Recorded V/S: Last Vital Signs Temp 99.1 F 01/27/19 19:46 Pulse 103 H 01/27/19 19:46 Resp 16 01/27/19 19:46 BP 167/82 H 01/27/19 19:46 Pulse Ox 99 01/27/19 19:46 - Orders/Labs/Meds Orders: Active Orders 24 hr Category Date Time Status Abdomen Series w Chest 1V [CR] Stat Exams 01/27/19 20:59 Taken Labs: Laboratory Tests 01/27/19 01/27/19 01/27/19 Range/Units 20:20 20:20 20:30 WBC 6.36 (3.98-10.04) K/mm3 RBC 3.85 L (3.98-5.22) M/mm3 Hgb 11.4 (11.2-15.7) gm/L Hct 35.3 (34.1-44.9) % MCV 91.7 (79.4-94.8) fl MCH 29.6 (25.6-32.2) pg MCHC 32.3 (32.2-35.5) g/dl RDW Std Deviation 47.5 H (36.4-46.3) fL Plt Count 266 (182-369) K/mm3 MPV 9.3 L (9.4-12.3) fl Neut % (Auto) 59.7 (34.0-71.1) % Lymph % (Auto) 22.5 (19.3-51.7) % [place] % (Auto) 11.8 (4.7-12.5) % Eos % (Auto) 5.7 (0.7-5.8) Baso % (Auto) 0.3 (0.1-1.2) % Neut # (Auto) 3.80 (1.56-6.13) K/mm3 Lymph # (Auto) 1.43 (1.18-3.74) K/mm3 [place] # (Auto) 0.75 H (0.24-0.36) K/mm3 Eos # (Auto) 0.36 (0.04-0.36) K/mm3 Baso # (Auto) 0.02 (0.01-0.08) K/mm3 Sodium 138 (136-145) mEq/L Potassium 3.5 (3.5-5.1) mEq/L Chloride 102 (98-107) mEq/L Carbon Dioxide 26 (21-32) mEq/L Anion Gap 13.5 (5-15) BUN 34 H (7-18) mg/dL Creatinine 1.7 H (0.55-1.02) mg/dL Est Cr Clr Drug Dosing 17.74 mL/min Estimated GFR (MDRD) 28 (>60) mL/min BUN/Creatinine Ratio 20.0 H (14-18) Glucose 141 H (83-115) mg/dL Calcium 9.3 (8.5-10.1) mg/dL Total Bilirubin 0.3 (0.2-1.0) mg/dL AST 18 (15-37) U/L ALT 25 (14-59) U/L Alkaline Phosphatase 87 (46-116) U/L Total Protein 7.4 (6.4-8.2) g/dl Albumin 3.8 (3.4-5.0) g/dl Globulin 3.6 gm/dL Albumin/Globulin Ratio 1.1 (1-2) Urine Color Yellow (Yellow) Urine Appearance Clear (Clear) Urine pH 6.0 (5.0-8.0) Ur Specific [place] 1.025 (1.005-1.030) Urine Protein 1+ H (Negative) Urine Glucose (UA) Negative (Negative) Urine Ketones Negative (Negative) Urine Occult Blood Negative (Negative) Urine Nitrite Negative (Negative) Urine Bilirubin Negative (Negative) Urine Urobilinogen 0.2 (0.2-1.0) Ur Leukocyte Esterase Trace H (Negative) Urine RBC 0-5 (0-5) /hpf Urine WBC 0-5 (0-5) /hpf Ur Epithelial Cells 0-5 (0-5) /hpf Urine Bacteria Few (FEW) /hpf Urine Mucus Not seen (FEW) /hpf - Re-Assessments/Exams Free Text/Narrative Re-Assessment/Exam: 01/27/19 20:14 I will have my nurse do a bladder scan and cath and I will get some labs. 01/27/19 22:06 There was very little in her bladder. My nurse did straight cath her for a sample and she got 75mls. Her CBC looks good. Her creatinine was elevated at 1.7 and glucose was elevated at 141. Her UA shows no UTI. I will stop the levaquin and discharge her home. She did hear some fluid sounds when she pushed on her abdomen so I ordered an x-ray. It just showed some fluid and liquid in the stomach. I will discharge her home. 01/27/19 22:09 My nurse said her perineal area with irritated. I will have her clean that area with warm soapy water for a few days. Departure - Departure Time of Disposition: 22:10 Disposition: Home, Self-Care 01 Condition: Good Clinical Impression: Perineal irritation in female - Discharge Information *PRESCRIPTION DRUG MONITORING PROGRAM REVIEWED*: Not Applicable *COPY OF PRESCRIPTION DRUG MONITORING REPORT IN PATIENT VICTOR HUGO: Not Applicable Referrals: Jazmine Ledesma MD [Primary Care Provider] - Forms: ED Department Discharge Additional Instructions: Clean your perineal area with warm soapy water 2 times per day. Stop the levaquin and continue to take the rest of your medication. Please return if you are worse. - My Orders Last 24 Hours: My Active Orders 01/27/19 20:59 Abdomen Series w Chest 1V [CR] Stat - Assessment/Plan Last 24 Hours: My Active Orders 01/27/19 20:59 Abdomen Series w Chest 1V [CR] Stat
--- NOTE | 2019-01-28 08:53 | CR ---
Abdominal series: Supine and upright views of the abdomen were obtained as well as frontal view of the chest. Comparison: Prior chest x-ray of 01/25/19. Heart size appears within normal limits on current chest x-ray. Tortuous thoracic aorta is seen. Lungs are clear. 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 Findings have the appearance of change from rheumatoid arthritis. Right shoulder prosthesis is seen. Lungs are clear. Slight scoliosis is noted within the spine with scattered degenerative change. Surgical clips are seen from prior cholecystectomy. Mild increased stool is identified within the colon. Bony structures are osteopenic. No free air is seen. Impression: 1. Incidental findings. Nothing acute is appreciated. Diagnostic code #2
== END 2019-01-27 22:17 | disposition home or self-care (01) ==
LOC: JD.ED 19:39
DX: L29.3 Anogenital pruritus, unspecified (principal); I10 Essential (primary) hypertension; E03.9 Hypothyroidism, unspecified; Z88.5 Allergy status to narcotic agent; Z79.899 Other long term (current) drug therapy; Z79.82 Long term (current) use of aspirin
CPT/HCPCS: 36415; 51798; 74022; 74022-26; 80053; 81001; 85025; 99282; 99283-25